=== PATIENT | female | born 1980 | race Caucasian/White ===

== ENCOUNTER 2021-01-11 10:44 | Outpatient (REF) | payer OTHER, SELFPAY ==
[2021-01-11 13:40] LABS: MANUAL DIFF FLAG NO
[2021-01-11 13:45] LABS: Basophils Absolute Auto 0.1 X10*3/uL (0.0-0.2); Basophils Percent Auto 1.1 % (0-2); Eosinophils Absolute Auto 0.1 X10*3/uL (0.0-0.4); Eosinophils Percent Auto 1.4 % (0-4); Hematocrit 41.9 % (37-47); Hemoglobin 13.9 g/dl (12.0-16.0); Imm Gran Abs Auto 0.02 X10*3/uL (0.00-0.03); Imm Gran Pct Auto 0.3 % (0.0-0.4); Lymphocytes Absolute Auto 2.1 X10*3/uL (1.2-4.9); Lymphocytes Percent Auto 29.8 % (20-40); Mean Corpuscular HGB Conc 33.2 g/dl (31.0-35.0); Mean Corpuscular Hemoglobin 30.5 pg (27.0-33.0); Mean Corpuscular Volume 92.1 fL (80-98); Monocytes Absolute Auto 0.7 X10*3/uL (0.1-1.2); Monocytes Percent Auto 9.5 % (2-11); Neutrophils Absolute Auto 4.1 X10*3/uL (2.0-8.3); Neutrophils Percent Auto 57.9 % (45-73); Platelet Count 363 X10*3/uL (160-400); Red Blood Count 4.55 X10*6/uL (4.20-5.50); Red Cell Distribution Width 12.6 % (11.0-16.0); White Blood Count 7.1 X10*3/uL (4.8-10.8)
[2021-01-11 14:16] LABS: Alanine Aminotransferase 16 U/L (0-31); Albumin Level 4.3 g/dL (3.5-5.0); Alkaline Phosphatase 64 U/L (39-117); Anion Gap 14 (12-20); Aspartate Amino Transferase 18 U/L (5-31); Bilirubin Total 0.9 mg/dL (0.0-1.0); Blood Urea Nitrogen 21 mg/dL (9-16); Calcium 9.2 mg/dL (8.4-10.2); Carbon Dioxide 26 mmol/L (22-29); Chloride 103 mmol/L (96-108); Estimated Glomerular Filt Rate > 60; Glucose Random 95 mg/dL (60-115); Potassium 4.2 mmol/L (3.3-5.1); Sodium 139 mmol/L (135-145); Total Protein 7.3 g/dL (6.5-8.0)
== END 2021-01-11 10:45 | disposition home or self-care (01) ==
LOC: HO.WFDLDS 10:44
PROVIDERS: Visit Provider Family Medicine
DX: R06.00 Dyspnea, unspecified (principal)
CPT/HCPCS: 36415; 80053; 85025

== ENCOUNTER → 2021-01-14 08:35 | Outpatient (REF) | payer OTHER, SELFPAY ==
--- NOTE | ~2021-01-14 | XR_ITS ---
EXAMINATION: XR CHEST CLINICAL INFORMATION: Dyspnea COMPARISON: Previous chest x-ray February 2020 TECHNIQUE: 2 views of the chest were obtained. FINDINGS: The cardiac and mediastinal contours are normal. The lungs are clear. There is no pleural effusion. There are mild degenerative changes of the spine. XR/XR chest 2V IMPRESSION: No evidence for acute disease in the chest.
--- NOTE | 2021-01-14 10:00 | CA_ITS ---
Acquisition Time: 2021-01-14 09:01:17 Total Exercise Time: 00:07:28 Test Indications: Screening for CAD Medications: Protocol: OWEN Max HR: 157 BPM 87% of Pred: 179 BPM Max BP: 178/080 mmHG Max Work Load: 9.2 METS Exercise stress test using Owen protocol. Total of 7 min 28 sec. METS 9.2 with TAPHR up to 87 %. Pt tolerated well, denies any anginal sx. EKG with no arrhythmias, no ischemic changes seen during exercise or in recovery period. Hypertensive response to exercise. Test reviewed with Dr. Jeffrey Referred By: Jon Messer Overread By: Steven Ash
== END ==
LOC: HO.CARD 08:35
PROVIDERS: PCP Family Medicine; Visit Provider Family Medicine
DX: R06.00 Dyspnea, unspecified (principal)
CPT/HCPCS: 71046; 93016; 93017; 93018

== ENCOUNTER 2022-06-19 10:41 | Outpatient (REF) | payer OTHER, SELFPAY ==
[2022-06-19 14:10] LABS: Alanine Aminotransferase 8 U/L (0-31); Albumin Level 4.4 g/dL (3.5-5.0); Alkaline Phosphatase 51 U/L (39-117); Anion Gap 13 (12-20); Aspartate Amino Transferase 13 U/L (5-31); Bilirubin Total 0.6 mg/dL (0.0-1.0); Blood Urea Nitrogen 13 mg/dL (9-16); Calcium 9.4 mg/dL (8.4-10.2); Carbon Dioxide 27 mmol/L (22-29); Chloride 101 mmol/L (96-108); Cholesterol 224 mg/dL; Estimated Glomerular Filt Rate > 60; Glucose Random 97 mg/dL (60-115); HDL Cholesterol 42 mg/dL; LDL Cholesterol Calculated 157 mg/dl; Potassium 3.6 mmol/L (3.3-5.1); Sodium 137 mmol/L (135-145); Total Protein 7.3 g/dL (6.5-8.0); Triglycerides 126 mg/dL
[2022-06-19 14:21] LABS: TSH reflex Free T4 1.44 uIU/mL (0.32-4.0)
[2022-06-21 08:26] LABS: LDL Cholesterol Direct 165 mg/dL (<100)
== END 2022-06-19 10:42 | disposition home or self-care (01) ==
LOC: HO.WFDLDS 10:41
PROVIDERS: Visit Provider Family Medicine
DX: Z00.00 Encounter for general adult medical examination without abnormal findings (principal); I10 Essential (primary) hypertension; Z13.220 Encounter for screening for lipoid disorders
CPT/HCPCS: 36415; 80053; 80061; 83721; 84443

== ENCOUNTER 2023-02-26 09:51 | Outpatient (REF) | payer OTHER, SELFPAY ==
[2023-02-26 11:38] LABS: MANUAL DIFF FLAG NO
[2023-02-26 11:44] LABS: Basophils Absolute Auto 0.1 X10*3/uL (0.0-0.2); Eosinophils Absolute Auto 0.1 X10*3/uL (0.0-0.4); Hematocrit 43.4 % (37.0-47.0); Hemoglobin 14.6 g/dl (12.0-16.0); Imm Gran Abs Auto 0.02 X10*3/uL (0.00-0.03); Imm Gran Pct Auto 0.3 % (0.0-0.4); Lymphocytes Absolute Auto 1.6 X10*3/uL (1.2-4.9); Lymphocytes Percent Auto 23.3 % (20-40); Mean Corpuscular HGB Conc 33.6 g/dl (31.0-35.0); Mean Corpuscular Hemoglobin 30.7 pg (27.0-33.0); Mean Corpuscular Volume 91.2 fL (80.0-98.0); Mean Platelet Volume 10.2 fL (9.4-12.3); Monocytes Absolute Auto 0.6 X10*3/uL (0.1-1.2); Monocytes Percent Auto 8.4 % (2-11); Neutrophils Absolute Auto 4.6 x10*3/uL (2.0-8.3); Platelet Count 342 X10*3/uL (160-400); Red Blood Count 4.76 X10*6/uL (4.20-5.50); Red Cell Distribution Width 12.2 % (11.0-16.0)
[2023-02-26 11:54] LABS: Appearance Urine Clear; Color Urine Yellow; Glucose Urine UA Negative (Negative); Leukocyte Esterase Urine Negative (Negative); Nitrite Urine Negative (Negative); PH 6.5 (5.0-9.0); Specific Gravity - Urine <= 1.005 (1.005-1.025); Urine Blood Negative (Negative); Urine Ketones Negative (Negative); Urine Protein Negative (Neg-Trace)
[2023-02-26 12:16] LABS: Alanine Aminotransferase 11 U/L (0-31); Albumin Level 4.4 g/dL (3.5-5.0); Alkaline Phosphatase 63 U/L (39-117); Anion Gap 13 (12-20); Aspartate Amino Transferase 15 U/L (5-31); Blood Urea Nitrogen 13 mg/dL (9-16); Calcium 9.5 mg/dL (8.4-10.2); Carbon Dioxide 26 mmol/L (22-29); Chloride 104 mmol/L (96-108); Cholesterol 234 mg/dL; Estimated Glomerular Filt Rate > 60; Glucose Random 99 mg/dL (60-115); HDL Cholesterol 45 mg/dL; LDL Cholesterol Calculated 167 mg/dl; Potassium 3.8 mmol/L (3.3-5.1); Sodium 139 mmol/L (135-145); Total Protein 7.2 g/dL (6.5-8.0); Triglycerides 110 mg/dL
[2023-02-26 12:20] LABS: TSH reflex Free T4 1.44 uIU/mL (0.32-4.0)
[2023-02-26 12:29] LABS: Creatinine Urine 41.79 mg/dL; Microalbumin Urine < 5.0 mg/L
[2023-02-28 05:34] LABS: LDL Cholesterol Direct 174 mg/dL (<100)
== END 2023-02-26 09:52 | disposition home or self-care (01) ==
LOC: HO.WFDLDS 09:51
PROVIDERS: Visit Provider Family Medicine
DX: Z00.00 Encounter for general adult medical examination without abnormal findings (principal); E78.5 Hyperlipidemia, unspecified; I10 Essential (primary) hypertension
CPT/HCPCS: 36415; 80053; 80061; 81003; 82043; 83721; 84443; 85025

== ENCOUNTER 2023-04-13 10:20 | Outpatient (REF) | payer OTHER, SELFPAY ==
--- NOTE | ~2023-04-13 | MM_ITS ---
EXAMINATION: MM SCREENING DIGITAL BREAST TOMOSYNTHESIS, BILATERAL CLINICAL INFORMATION: Screening. Asymptomatic. The lifetime risk of breast cancer based on the Tyrer-Cuzick Model is 6.2%. COMPARISON: Mammography: None TECHNIQUE: Digital breast tomosynthesis is performed in both the craniocaudal and mediolateral oblique views along with computer-aided detection (CAD). Synthesized 2D images are generated from the tomosynthesis. FINDINGS: There are scattered areas of fibroglandular density (ACR BI-RADS breast composition Category b). There are no significant masses, abnormal calcifications, or other abnormalities. MM/MM tomosynthesis screening BI IMPRESSION: No mammographic evidence of malignancy. ASSESSMENT: BI-RADS 1: Negative RECOMMENDATION: Routine annual mammography screening. This patient's information was entered into a reminder system with a target due date for their next mammogram.
== END 2023-04-13 10:21 | disposition home or self-care (01) ==
LOC: HO.MAMMO 10:20
PROVIDERS: PCP Family Medicine; Visit Provider Family Medicine
DX: Z12.31 Encounter for screening mammogram for malignant neoplasm of breast (principal)
CPT/HCPCS: 77063; 77067

== ENCOUNTER 2023-06-30 08:20 | Outpatient (AMB) | payer OTHER, SELFPAY ==
--- NOTE | 2023-06-30 08:24 | A.OFFPC_ITS ---
Vital Signs 06/30/23 08:29 Height 5 ft 3 in Weight 267 lb BMI 47.3 BP 126/84 Blood Pressure Location Lt brachial Position Sitting Respiration 14 Pulse 72 Pulse Source Pulse Oximeter Temp 97.0 F Temp Source Temporal Artery Scan Pulse Oximetry (%) 98 Oxygen Delivery Method Room Air Intake Visit Reasons: f/u ADHD and HLD Intake Note: Patient presents to the office today for a follow up regarding ADHD and HLD. Patient is current taking methylphenidate HCl ER 20 MG daily and is not doing well on the medication. Patient reports she has never increased her dose and wonders if this would help. Patient reports no side effects from the current medication. Patient had labs drawn on 02/26/2023 and did not have labs drawn again before today's appointment. Patient is currently taking Atorvastatin 20 MG daily. 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 by: Self / Same As Patient Allergies sulfamethoxazole [From BACTRIM] Allergy (Unknown, Verified 06/30/23 08:39) TOLD HER NOT TO TAKE BACTRIM trimethoprim [From BACTRIM] Allergy (Unknown, Verified 06/30/23 08:39) TOLD HER NOT TO TAKE BACTRIM Tobacco use date assessed: 06/30/23 Dental Screening Dental Screen Date: 06/30/23 Did you have a dental visit in the last 12 months?: No Did you have a dental problem in the last 6 months where you did not have access to dental care?: No Was dental information given to patient?: Yes HPI f/u ADHD and HLD HPI Details Patient is here to follow-up hypertension, hyperlipidemia and ADHD. Blood pressure appears controlled and she does not take medication for her blood pressure. Lipids had been elevated and we started atorvastatin 20 mg daily. She was to have her labs drawn prior to this appointment but has not done this yet. She is taking methylphenidate for ADHD and notes that it is not helping well enough. She denies increased anxiety/appetite issues/any adverse effects on methylphenidate. She reports she continues to watch her diet and has been exercising. [facility] Surgical History H/O wisdom tooth extraction History of section History of removal of cyst Family History Father Diabetes mellitus Mother HTN (hypertension) Stroke Brother Substance abuse Sister Substance abuse Son No problems noted. Daughter No problems noted. Social History Housing: House Patient Tobacco Use Status: Former Tobacco user e-Cigarette/Vaping Use: Currently Using (Daily use.) Second Hand Smoke Exposure: No service: No Current occupational status: employed Current occupational exposures/hazards: No Cognitive needs: No Hearing needs: No Vision needs: No Questionnaire Thrive Questionnaire Date Thrive assessed: 11/14/22 YING-7 AMB Questionnaire YING-7 Date YING - 7 assessed: 11/14/22 Source: Developed by Drs. Сергей Garcia, Anais Nicole, Hany Cross and colleagues, with an educational amira from [employer] Review of Systems Const Denies chills, Denies fatigue, Denies fever(s), Denies headache(s) and Denies weakness ENT Denies dizziness and Denies headache(s) Card Denies chest pain, Denies lightheadedness, Denies dyspnea and Denies other (Palpitations) Resp Denies cough, Denies dyspnea, Denies wheezing and Denies other ( shortness of breath) Musc Denies numbness and Denies tingling Neuro Denies dizziness, Denies headache(s), Denies numbness, Denies tingling, Denies paresthesias and Denies weakness Psych Denies anxiety and Denies depression Endo Denies fatigue Aller/Immun Denies wheezing Physical exam (Primary Care) Vital Signs: Last Vital Signs Temp 97.0 F 06/30/23 08:29 Pulse 72 06/30/23 08:29 Resp 14 06/30/23 08:29 BP 126/84 06/30/23 08:29 Pulse Ox 98 06/30/23 08:29 Oxygen Delivery Method Room Air 06/30/23 08:29 BMI result Body Mass Index 47.3 Tobacco/Smoking Status: Tobacco use Status Tobacco use date assessed 06/30/23 06/30/23 08:40 Patient Tobacco Use Status Former Tobacco user 06/30/23 08:25 e-Cigarette/Vaping Use Currently Using (Daily use.) 06/30/23 08:40 Thrive Assessment: Date of Thrive Assessment Date Thrive assessed 11/14/22 06/30/23 08:25 Const General: no acute distress and well developed Nutritional Appearance: obese morbidly obese Orientation/consciousness: patient oriented x3 HENMT Head: Yes normocephalic and Yes atraumatic Eyes General: appearance normal, both eyes and all related structures Pupils: Equal, round and reactive pupils present EOM: EOMs intact bilaterally Resp Effort & Inspection: normal respiratory effort Auscultation: clear to auscultation bilaterally Cardio Rate: regular rate Rhythm: regular rhythm Heart sounds: S1 normal heart sound present, S2 normal heart sound present, no gallops, no murmurs and no rubs Neuro General: patient oriented x3 and gait normal Cranial nerves: Yes Equal, round and reactive pupils present Psych Affect: normal affect Assessment and Plan Assessment & Plan (1) Hyperlipidemia: Code(s): E78.5 - Hyperlipidemia, unspecified Plan: Had started atorvastatin since her last visit. Has not gotten her labs drawn but will do so today. We can follow-up in a couple of weeks by telemedicine to review (2) ADHD: Code(s): F90.9 - Attention-deficit hyperactivity disorder, unspecified type Plan: Patient uses her medications appropriately. She has started new work which is more complicated and she is noticing that she is having more difficulty on ER 20 mg daily. No adverse effects from this medication Will increase to methylphenidate ER 30 mg daily She would like to have follow ups every 4 month and we discussed that this is the maximum length of time between visits that I can approve. Patient understands. Check labs (3) Essential hypertension: Code(s): I10 - Essential (primary) hypertension Plan: Blood pressures are controlled with diet. Encouraged exercise and salt/sodium avoidance Continue to monitor with blood pressure cuff at home (4) Morbid obesity with BMI of 45.0-49.9, adult: Code(s): E66.01 - Morbid (severe) obesity due to excess calories; Z68.42 - Body mass index [BMI] 45.0-49.9, adult Plan: Patient has had difficulty with weight loss. Had a long discussion regarding diet and exercise We can follow-up on this at a subsequent visit. Orders: Orders Drug Screen Urine Today F90.9 - Attention-deficit hyperactivity disorder, unspecified type UA and rflx microscopic Today F90.9 - Attention-deficit hyperactivity disorder, unspecified type, Z00.00 - Encounter for general adult medical examination without abnormal findings Comprehensive [place]. Panel Fast Today F90.9 - Attention-deficit hyperactivity disorder, unspecified type, Z00.00 - Encounter for general adult medical examination without abnormal findings Lipid Panel Today E78.5 - Hyperlipidemia, unspecified, Z00.00 - Encounter for general adult medical examination without abnormal findings Medications: New methylphenidate HCl ER Partial Fill upon patient request. 30 mg PO QAM 30 days 30 caps 0RF Discontinued methylphenidate HCl ER [facility] verified. Partial refill upon request. Discontinued Reason: Doctor's Order 20 mg PO DAILY 28 days 28 tabs 0RF Z00.00 - Encounter for general adult medical examination without abnormal findings Coding Level of Care Code Est Pt Level 4 (53227) Diagnoses Hyperlipidemia E78.5 ADHD F90.9 Essential hypertension I10 Morbid obesity with BMI of 45.0-49.9, adult E66.01; Z68.42
[2023-06-30 08:29] VITALS: BP 126/84; PULSE 72; RESP 14; TEMP 36.1; O2SAT 98; BMI 47.3
== END 2023-06-30 09:12 | disposition home or self-care (01) ==
PROVIDERS: Visit Provider Family Medicine
DX: E78.5 Hyperlipidemia, unspecified (principal); F90.9 Attention-deficit hyperactivity disorder, unspecified type; I10 Essential (primary) hypertension; E66.01 Morbid (severe) obesity due to excess calories; Z68.42 Body mass index [BMI] 45.0-49.9, adult
CPT/HCPCS: 99214

== ENCOUNTER 2023-06-30 09:04 | Outpatient (REF) | payer OTHER, SELFPAY ==
[2023-06-30 12:42] LABS: Alanine Aminotransferase 15 U/L (0-31); Alkaline Phosphatase 58 U/L (39-117); Anion Gap 11 (12-20); Aspartate Amino Transferase 15 U/L (5-31); Bilirubin Total 0.6 mg/dL (0.0-1.0); Blood Urea Nitrogen 14 mg/dL (9-16); Calcium 9.1 mg/dL (8.4-10.2); Carbon Dioxide 25 mmol/L (22-29); Chloride 107 mmol/L (96-108); Cholesterol 158 mg/dL; Estimated Glomerular Filt Rate > 60; Glucose Fasting 94 mg/dL (60-99); HDL Cholesterol 47 mg/dL; LDL Cholesterol Calculated 95 mg/dl; Potassium 3.9 mmol/L (3.3-5.1); Sodium 139 mmol/L (135-145); Total Protein 6.9 g/dL (6.5-8.0); Triglycerides 81 mg/dL
== END 2023-06-30 09:05 | disposition home or self-care (01) ==
LOC: HO.WFDLDS 09:04
PROVIDERS: Visit Provider Family Medicine
DX: Z00.00 Encounter for general adult medical examination without abnormal findings (principal); E78.5 Hyperlipidemia, unspecified
CPT/HCPCS: 36415; 80053; 80061

== ENCOUNTER 2023-12-10 09:42 | Outpatient (AMB) | payer OTHER, SELFPAY ==
--- NOTE | 2023-12-10 09:53 | A.OFFPC_ITS ---
Vital Signs 12/10/23 09:55 Height 5 ft 3 in Weight 278 lb BMI 49.2 BP 122/74 Blood Pressure Location Lt brachial Position Sitting Pulse 77 Pulse Source Pulse Oximeter Pulse Oximetry (%) 97 Oxygen Delivery Method Room Air Intake Visit Reasons: f/u ADHD Intake Note: Patient is here to follow up on her ADHD medication. She needs refill on both her meds. Allergies sulfamethoxazole [From BACTRIM] Allergy (Unknown, Verified 12/10/23 09:57) TOLD HER NOT TO TAKE BACTRIM trimethoprim [From BACTRIM] Allergy (Unknown, Verified 12/10/23 09:57) TOLD HER NOT TO TAKE BACTRIM Tobacco use date assessed: 12/10/23 Dental Screening Dental Screen Date: 12/10/23 Did you have a dental visit in the last 12 months?: Yes Did you have a dental problem in the last 6 months where you did not have access to dental care?: No Was dental information given to patient?: Patient declined HPI f/u ADHD HPI Details 43 y/o female presents to f/u ADHD. Also reviewing lipids. Labs were drawn 06/30/23. Triglycerides 81. TC 158. LDL 95. HDL 47. She is on artovastatin 20mg. She is on methylphenidate for her ADHD. She denies any issues with her medications. She denies any issues with appetite, sleep, increased anxiety. [facility] Surgical History History of removal of cyst H/O wisdom tooth extraction History of section Family History Father Diabetes mellitus Mother HTN (hypertension) Stroke Brother Substance abuse Sister Substance abuse Son No problems noted. Daughter No problems noted. Social History Housing: House Patient Tobacco Use Status: Former Tobacco user e-Cigarette/Vaping Use: Currently Using (Daily use.) Second Hand Smoke Exposure: No service: No Current occupational status: employed Current occupational exposures/hazards: No Cognitive needs: No Hearing needs: No Vision needs: No Questionnaire Thrive Questionnaire Date Thrive assessed: 11/14/22 YING-7 AMB Questionnaire YING-7 Date YING - 7 assessed: 11/14/22 Source: Developed by Drs. Сергей Garcia, Anais Nicole, Hany Cross and colleagues, with an educational amira from [employer]. Physical exam (Primary Care) Vital Signs: Last Vital Signs Pulse 77 12/10/23 09:55 BP 122/74 12/10/23 09:55 Pulse Ox 97 12/10/23 09:55 Oxygen Delivery Method Room Air 12/10/23 09:55 BMI result Body Mass Index 49.2 Tobacco/Smoking Status: Tobacco use Status Tobacco use date assessed 12/10/23 12/10/23 09:59 Patient Tobacco Use Status Former Tobacco user 12/10/23 09:59 e-Cigarette/Vaping Use Currently Using (Daily use.) 12/10/23 09:59 Thrive Assessment: Date of Thrive Assessment Date Thrive assessed 11/14/22 12/10/23 09:59 Const Nutritional Appearance: obese morbidly obese Assessment and Plan Assessment & Plan (1) ADHD: Code(s): F90.9 - Attention-deficit hyperactivity disorder, unspecified type Plan: Patient?is?using?medication?with?fairly?good?affect. She?denies?any?adverse?effects?such?as?appetite?suppression,?anxiety?or?difficul ty?sleeping. At?last?visit,?had?ordered?urine?drug?screen.??I?do?not?see?that?I?made?an y?mention?of?discussing?this?with?her.??Urine?drug?screen?was?apparently?not?acq uired. We?discussed?today?that?I?am?ordering?a?urine?drug?screen.??She?will?leave?a?uri ne?sample?today. Patient?was?fru strated?with?the?time?it?takes?to?be?seen?and?that?she?has?to?be?seen?every?4?mo nths. She?referred?to?this?as??a?hostage?situation?. Explained?that?regular?visits?are?necessary. She?has?signed?a?con tract?agreeing?to?be?seen?at?regular?intervals. Orders: Orders Drug Screen Urine Today F90.9 - Attention-deficit hyperactivity disorder, unspecified type Amphetamine by GC/MS Today F90.9 - Attention-deficit hyperactivity disorder, unspecified type Coding Level of Care Code Est Pt Level 3 (66324) Diagnoses ADHD F90.9
[2023-12-10 09:55] VITALS: BP 122/74; PULSE 77; O2SAT 97; BMI 49.2
== END 2023-12-10 11:27 | disposition home or self-care (01) ==
PROVIDERS: PCP Family Medicine; Visit Provider Family Medicine
DX: F90.9 Attention-deficit hyperactivity disorder, unspecified type (principal)
CPT/HCPCS: 99213

== ENCOUNTER 2023-12-10 10:35 | Outpatient (REF) | payer OTHER, SELFPAY ==
[2023-12-10 14:41] LABS: Amphetamine Screen Urine Not Detected (Not Detect); Barbiturates, Urine Not Detected (Not Detect); Benzodiazepines Screen Urine Not Detected (Not Detect); Cannabinoid Screen Urine Not Detected (Not Detect); Cocaine Screen Urine Not Detected (Not Detect); Fentanyl, urine Not Detected (Not Detect); Opiate Screen Urine Not Detected (Not Detect); Phencyclidine Screen Urine Not Detected (Not Detect)
== END 2023-12-10 10:36 | disposition home or self-care (01) ==
LOC: HO.LAB 10:35
PROVIDERS: Visit Provider Family Medicine
DX: F90.9 Attention-deficit hyperactivity disorder, unspecified type (principal)
CPT/HCPCS: 80307

== ENCOUNTER 2024-04-29 15:30 | Outpatient (REF) | payer OTHER, SELFPAY ==
--- NOTE | ~2024-04-29 | MM_ITS ---
EXAMINATION: MM SCREENING DIGITAL BREAST TOMOSYNTHESIS, BILATERAL CLINICAL INFORMATION: Screening. Asymptomatic. COMPARISON: Mammography: This study is compared with prior exams dating back to 2022. TECHNIQUE: Digital breast tomosynthesis is performed in both the craniocaudal and mediolateral oblique views along with computer-aided detection (CAD). Synthesized 2D images are generated from the tomosynthesis. FINDINGS: The breasts are almost entirely fatty (ACR BI-RADS breast composition Category a). There are no significant masses, abnormal calcifications, or other abnormalities. MM/MM tomosynthesis screening BI IMPRESSION: No mammographic evidence of malignancy. ASSESSMENT: BI-RADS BI-RADS 1 - Negative RECOMMENDATION: Routine annual mammography screening. 1 year F/U This examination should not preclude the clinical evaluation of a suspicious palpable abnormality. This patient's information was entered into a reminder system with a target due date for their next mammogram.
== END 2024-04-29 15:31 | disposition home or self-care (01) ==
LOC: HO.MAMMO 15:30
PROVIDERS: PCP Family Medicine; Visit Provider Family Medicine
DX: Z12.31 Encounter for screening mammogram for malignant neoplasm of breast (principal)
CPT/HCPCS: 77063; 77067

== ENCOUNTER → 2024-04-29 15:30 | Outpatient (BNV) | payer OTHER, SELFPAY | PROVIDERS: PCP Family Medicine; Visit Provider Radiology Diagnostic Radiology | DX: Z12.31 Encounter for screening mammogram for malignant neoplasm of breast (principal) | CPT/HCPCS: 77063; 77067 ==

== ENCOUNTER → 2024-05-19 14:04 | Outpatient (BNVA) | payer OTHER, SELFPAY | PROVIDERS: PCP Family Medicine; Visit Provider Physician Assistant Surgical ==

== ENCOUNTER 2024-06-03 12:57 | Outpatient (AMB) | payer OTHER, SELFPAY ==
--- NOTE | 2024-06-03 13:03 | A.OFFPC_ITS ---
Vital Signs 06/03/24 13:09 Height 5 ft 3 in Weight 284 lb 4 oz BMI 50.3 BP 138/88 Blood Pressure Location Rt brachial Position Sitting Respiration 16 Pulse 67 Pulse Source Pulse Oximeter Pulse Oximetry (%) 97 Oxygen Delivery Method Room Air Intake Visit Reasons: f/u ADHD Intake Note: Follow up ADHD Allergies sulfamethoxazole [From BACTRIM] Allergy (Unknown, Verified 06/03/24 13:06) TOLD HER NOT TO TAKE BACTRIM trimethoprim [From BACTRIM] Allergy (Unknown, Verified 06/03/24 13:06) TOLD HER NOT TO TAKE BACTRIM Tobacco use date assessed: 12/10/23 Dental Screening Dental Screen Date: 06/03/24 Did you have a dental visit in the last 12 months?: No Did you have a dental problem in the last 6 months where you did not have access to dental care?: No Was dental information given to patient?: Patient declined (Patient will call insurance company) HPI f/u ADHD HPI Details 44 y/o female presents to f/u ADHD. She is on methylphenidate HCl 20mg. Pt notes 20mg has been helping with his focus. She notes she has been only using it at work. She denies any issues with increased anxiety/difficulty sleeping. 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 [facility] Surgical History (Updated 05/19/24 @ 15:17 by July Rivera [facility]) Hx of colonoscopy History of anal fistulotomy History of removal of cyst H/O wisdom tooth extraction History of section Family History Father Diabetes mellitus Mother HTN (hypertension) Stroke Brother Substance abuse Sister Substance abuse Son No problems noted. Daughter No problems noted. Social History (Updated 06/03/24 @ 13:09 by Mitzy Meléndez [facility]) Housing: House Patient Tobacco Use Status: Former Tobacco user Cigarette Packs Per Day: 0.5 Years Smoked: 20 Packs Per Year: 10 e-Cigarette/Vaping Use: Currently Using (Daily use.) Frequency of e-Cigarette/Vaping Use: A pod of Jewul every two days Second Hand Smoke Exposure: No Use of substances other than those prescribed or required for medical reasons: No service: No Current occupational status: employed Current occupational exposures/hazards: No Cognitive needs: No Hearing needs: No Vision needs: No Questionnaire PHQ-9 Over the last 2 weeks, how often have you been bothered by any of the following problems? 1. Little interest or pleasure in doing things: not at all 2. Feeling down, depressed, or hopeless: not at all 3. Trouble falling or staying asleep, or sleeping too much: not at all 4. Feeling tired or having little energy: not at all 5. Poor appetite or overeating: not at all 6. Feeling bad about yourself - or that you are a failure or have let yourself or your family down: several days 7. Trouble concentrating on things, such as reading the newspaper or watching television: more than half the days 8. Moving or speaking so slowly that other people could have noticed. Or the opposite - being so fidgety or restless that you have been moving around a lot more than usual: not at all 9. Thoughts that you would be better off or of hurting yourself in some way: not at all Total score: 3 Depression Screening Interpretation: Positive Depression Screening Done: Yes 17091 - PHQ-9 Billing: Yes Source: Developed by Drs. Сергей Garcia, Anais Nicole, Hany Cross and colleagues, with an educational amira from [employer]. Thrive Questionnaire Date Thrive assessed: 11/14/22 I am a: Patient What is your living situation today?: I have a steady place to live Within the past 12 months, did the food you bought not last and you didn't have the money to get more?: Never true Within the past 12 months, did you worry whether your food would run out before you got money to buy more?: Never true Do you have trouble paying for medicines?: No Do you have trouble getting transportation to medical appointments?: No Do you have trouble paying your heating and electricity bill?: No Do you have trouble taking care of your child, family member or friend?: No Do you have trouble with day-to-day activities such as bathing, preparing meals, shopping, managing finances, etc.?: No Are you currently unemployed and looking for a job?: No Are you interested in more education?: No Please select the resources that you would like help with: None Currently or been in a relationship where the following occur: No concerns reported THRIVE Score: 0 AUDIT C Alcohol Use Questionnaire (AUDIT-C) 1. How often do you have a drink containing alcohol?: Never 3. How often do you have six or more drinks on one occasion?: Never Total Score: 0 YING-7 AMB Questionnaire YING-7 Date YING - 7 assessed: 06/03/24 Feeling nervous, anxious, or on edge: 0 = Not at all Not being able to stop or control worryin = Not at all Worrying too much about different things: 0 = Not at all Trouble relaxin = Not at all Being so restless that it is hard to sit still: 0 = Not at all Becoming easily annoyed or irritable: 1 = Several days Feeling afraid as if something awful might happen: 0 = Not at all Total YING-7 score (0-4 normal; 5-9 mild; 10-14 moderate; 15-21 severe): 1 Source: Developed by Drs. Сергей Garcia, Anais Nicole, Hany Cross and colleagues, with an educational amira from [employer]. Review of Systems Const Denies chills, Denies fatigue, Denies fever(s), Denies headache(s) and Denies weakness ENT Denies dizziness and Denies headache(s) Card Denies dyspnea Resp Denies cough, Denies dyspnea, Denies wheezing and Denies other (shortness of breath) Musc Denies numbness and Denies tingling Neuro Denies dizziness, Denies headache(s), Denies numbness, Denies tingling and Denies weakness Psych Denies anxiety and Denies depression Endo Denies fatigue Aller/Immun Denies wheezing Physical exam (Primary Care) Vital Signs: Last Vital Signs Pulse 67 06/03/24 13:09 Resp 16 06/03/24 13:09 BP 138/88 06/03/24 13:09 Pulse Ox 97 06/03/24 13:09 Oxygen Delivery Method Room Air 06/03/24 13:09 BMI result Body Mass Index 50.3 Tobacco/Smoking Status: Tobacco use Status Tobacco use date assessed 12/10/23 06/03/24 13:03 Patient Tobacco Use Status Former Tobacco user 06/03/24 13:09 e-Cigarette/Vaping Use Currently Using (Daily use.) 06/03/24 13:09 PHQ-9: PHQ-9 Score PHQ-9: Total score 3 06/03/24 13:31 Depression Screening Interpretation: Positive Thrive Assessment: Date of Thrive Assessment Date Thrive assessed 11/14/22 06/03/24 13:03 Currently or been in a relationship where the following occur: No concerns reported Const General: well developed; No acute distress Nutritional Appearance: well nourished and obese morbidly obese Orientation/consciousness: patient oriented x3 HENMT Head: Yes normocephalic and Yes atraumatic Eyes General: appearance normal, both eyes and all related structures Pupils: Equal, round and reactive pupils present EOM: EOMs intact bilaterally Resp Effort & Inspection: normal respiratory effort Neuro General: patient oriented x3 and gait normal Cranial nerves: Yes Equal, round and reactive pupils present Psych Affect: normal affect Assessment and Plan Assessment & Plan (1) ADHD: Code(s): F90.9 - Attention-deficit hyperactivity disorder, unspecified type Plan: Patient?says?that?methylphenidate?20?mg?daily?is?working?for?her. No?increase?in?anxiety?or?problems?with?appetite.??No?prob lems?with?difficulty?sleeping. Continue?current?medication Checking?random?urine?drug?screen. (2) Morbid obesity: Code(s): E66.01 - Morbid (severe) obesity due to excess calories Plan: Patient?is?scheduled?to?start?Bariatric?program. Needs?to?quit?smoking/vaping?before?she?can?begin?program.??See?below (3) Essential hypertension: Code(s): I10 - Essential (primary) hypertension Plan: Blood?pressure?is?in?prehypertensive?range. She?is?scheduled?to?start?Bariatric?program?and?will?likely?have?her?blood?press ures?improve No?medication?changes?were?made?today Watch?salt/sodium?in?diet Work?on?weight?loss (4) Smoker: Code(s): F17.200 - Nicotine dependence, unspecified, uncomplicated Plan: Patient?is?vaping?nicotine?device. Wants?to?quit?and?does?not?feel?she?has?a?strong?dependency?on?nicotine?but?has? significant?habit. We?discussed?Chantix?and?bupropion. Will?trial?bupropion Advised?she?change?hand?to?mouth?habits?to?another?habits?such?as?a?fidget?toy.? ?From?there?she?can?try?discontinuing?that?as?well. Orders: Orders Drug Screen Urine Today F90.9 - Attention-deficit hyperactivity disorder, unspecified type Coding Level of Care Code Est Pt Level 4 (22769) Diagnoses ADHD F90.9 Morbid obesity E66.01 Essential hypertension I10 Smoker F17.200
[2024-06-03 13:09] VITALS: BP 138/88; PULSE 67; RESP 16; O2SAT 97; BMI 50.3
== END 2024-06-03 14:13 | disposition home or self-care (01) ==
PROVIDERS: PCP Family Medicine; Visit Provider Family Medicine
DX: I10 Essential (primary) hypertension (principal); E66.01 Morbid (severe) obesity due to excess calories; Z68.43 Body mass index [BMI] 50.0-59.9, adult; F90.9 Attention-deficit hyperactivity disorder, unspecified type; F17.290 Nicotine dependence, other tobacco product, uncomplicated
CPT/HCPCS: 99214

== ENCOUNTER 2024-06-03 18:06 | Outpatient (REF) | payer OTHER, SELFPAY ==
[2024-06-03 18:32] LABS: Amphetamine Screen Urine Not Detected (Not Detect); Barbiturates, Urine Not Detected (Not Detect); Benzodiazepines Screen Urine Not Detected (Not Detect); Buprenorphine Scr Not Detected (Not Detect); Cannabinoid Screen Urine Not Detected (Not Detect); Cocaine Screen Urine Not Detected (Not Detect); Fentanyl, urine Not Detected (Not Detect); Methadone Screen, Urine Not Detected (Not Detect); Opiate Screen Urine Not Detected (Not Detect); Oxycodone Screen Urine Not Detected (Not Detect); Phencyclidine Screen Urine Not Detected (Not Detect)
== END 2024-06-03 18:07 | disposition home or self-care (01) ==
LOC: HO.LNP 18:06
PROVIDERS: Visit Provider Family Medicine
DX: F90.9 Attention-deficit hyperactivity disorder, unspecified type (principal)
CPT/HCPCS: 80307

== ENCOUNTER 2024-06-22 11:07 | Outpatient (AMB) | payer OTHER, SELFPAY ==
--- NOTE | 2024-06-22 11:07 | MHC.OFFVISWM ---
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 She heard about our program from her insurance company. Her goal is to lose weight and achieve a healthy lifestyle as well as to improve, if not resolve, obesity related medical conditions, including htn, nld. She reports first being concerned about her weight over the last 20 years, highest weight to date was 285. Current weight is 279.8 pounds with a BMI of 49.6. She has tried multiple methods of weight loss including fad diets without permanent results. She lives with her and son. 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 She wakes at:?8 am, and goes to bed at?11pm. Dinner is at 7pm. Breakfast: cottage cheese or niuean yogurt, 2 eggs, banana, toast and PB AM snack: skip Lunch: cheese, chicken, salad PM snack: skip Dinner: protein, veg, starch After dinner: chocolate covered raisins or peanuts, niuean yogurt, Other snacks: rare ice cream and chip Liquids: 64-96 oz water, no soda or juice Alcohol/marijuana/tobacco intake: no etoh, cannabis. Vape tobacco all day long Exercise: none. could join PF. GERD score: 6 ELLYN score: 6 ESS score: 4 QOL score: 114 PFSH Surgical History Hx of colonoscopy History of anal fistulotomy History of removal of cyst H/O wisdom tooth extraction History of section Family History Father Diabetes mellitus Mother HTN (hypertension) Stroke Brother Substance abuse Sister Substance abuse Son No problems noted. Daughter No problems noted. Social History Housing: House Patient Tobacco Use Status: Former Tobacco user Cigarette Packs Per Day: 0.5 Years Smoked: 20 e-Cigarette/Vaping Use: Currently Using (Daily use.) Second Hand Smoke Exposure: No service: No Current occupational status: employed Current occupational exposures/hazards: No Cognitive needs: No Hearing needs: No Vision needs: No Physical Exam Vital Signs: Last Vital Signs Temp 97.4 F 06/22/24 11:26 Pulse 86 06/22/24 11:26 BP 170/86 H 06/22/24 11:26 Pulse Ox 96 06/22/24 11:26 Oxygen Delivery Method Room Air 06/22/24 11:26 BMI result Body Mass Index 49.6 Const General: cooperative, healthy appearing and no acute distress Orientation/consciousness: patient oriented x3 HEENT Head: Yes normal to inspection Ears: hearing grossly normal bilaterally General nose exam: Normal external nose present Face and sinus: Yes normal facial exam Eyes General: appearance normal, both eyes and all related structures Resp Effort & Inspection: normal respiratory effort Auscultation: clear to auscultation bilaterally Cardio Rate: regular rate Rhythm: regular rhythm Heart sounds: S1 normal heart sound present and S2 normal heart sound present GI Inspection: Yes normal to inspection, No distended and Yes obesity Palpation (GI): Soft to palpation, nontender and no guarding Auscultation: normal bowel sounds Skin General skin exam: no rashes or lesions noted Neuro General: patient oriented x3 Extrem General: No edema Psych Appearance: grossly normal Mental Status: mental status grossly normal Speech and movement: Normal speech and movement present Affect: normal affect Attitude: cooperative Assessment & Plan Assessment & Plan (1) Morbid obesity: Code(s): E66.01 - Morbid (severe) obesity due to excess calories Category: Medical Plan: This is a?44 yo female who will start our SWL program to prepare for bariatric surgery.? Blood work, CXR, ECG, Abd US and UGI have been ordered. She is being scheduled for initial consultations. She will start SWL classes and watch the first three videos before her next appointment. 1. You have been given a paper with a link to our software rafael ([employer]) to generate an individualized nutritional and exercise plan specific for you. Please send me a screenshot of the plans you will generate Meal to include lean meat (beef, fish, pork, turkey, chicken), or niuean yogurt, or egg whites, or beans with a salad with olive oil and fruits (berries, pears, apples, kiwi). Avoid salt, breads, potatoes, rice, pasta, desserts. 2. If you choose shakes, each shake would be drunk slowly, like coffee over a period of 2 hours. 3. If you choose bars, cut each bar in 4 pieces and eat each piece in 30 min to make each bar last 2 hours. 4. I emphasized the importance of measuring accurately the food portion and measure it when serving the food on a plate 5. The meal portions include a specific number of forks of meat (protein) and salad. You always eat the meat portion but you can replace up to half of salad/vegetables portion with rice, potatoes or pasta, or a fruit ?if you like. The less you do it the better weight loss will be. 6. One full-size fork is what can be scooped on the fork without falling aside and not what can be bit with the fork. Use regular forks like those you find in a typical restaurant. 7.? Please send me weight measurements from your body composition scale as soon as possible and then once a week. Always include your diet and exercise plan. The best time to weigh yourself is first thing in the morning after going to the bathroom. 8. The best choice for exercise would be joining [employer] as you mentioned and trying out the different cardio equipment pieces including stationary bike, treadmill, elliptical to determine what may be best for you to purchase to have at home. Alternatively start walking outside daily, tracking calories with a goal of 300 calories per day, daily. You can download the rafael Sure Chill which can track your time, distance and calories while walking outside. You press start in the rafael when you start and then stop when you are finished. 9.?Goal is to lose at least 1.5-2 lbs per week, and about 10% before surgery, which is about 28 pounds 10. Please follow the diet plan exactly without any change. If you don't like something about the plan or you feel hungry you need to communicate with me so I can help you revise the plan. My cell phone number to communicate with me by text is [phone] Patient is morbidly obese and is not considered stable at this time.?I spent a total of 70 minutes reviewing/updating records, examining the patient and counseling the patient on weight management as detailed above. Orders: Orders Insulin Today E66.01 - Morbid (severe) obesity due to excess calories, E78.5 - Hyperlipidemia, unspecified, I10 - Essential (primary) hypertension Complete Blood Count Auto Diff Today E66.01 - Morbid (severe) obesity due to excess calories, E78.5 - Hyperlipidemia, unspecified, I10 - Essential (primary) hypertension Lipid Panel Today E66.01 - Morbid (severe) obesity due to excess calories, E78.5 - Hyperlipidemia, unspecified, I10 - Essential (primary) hypertension Comprehensive Met. Panel Today E66.01 - Morbid (severe) obesity due to excess calories, E78.5 - Hyperlipidemia, unspecified, I10 - Essential (primary) hypertension C Reactive Protein Today E66.01 - Morbid (severe) obesity due to excess calories, E78.5 - Hyperlipidemia, unspecified, I10 - Essential (primary) hypertension Vitamin B1 Today E66.01 - Morbid (severe) obesity due to excess calories, E78.5 - Hyperlipidemia, unspecified, I10 - Essential (primary) hypertension US abdomen comp w elastography Today E66.01 - Morbid (severe) obesity due to excess calories, E78.5 - Hyperlipidemia, unspecified, I10 - Essential (primary) hypertension ECG 12 lead EKG Today E66.01 - Morbid (severe) obesity due to excess calories, E78.5 - Hyperlipidemia, unspecified, I10 - Essential (primary) hypertension FL upper GI w air Today E66.01 - Morbid (severe) obesity due to excess calories, E78.5 - Hyperlipidemia, unspecified, I10 - Essential (primary) hypertension Hemoglobin A1c Today E66.01 - Morbid (severe) obesity due to excess calories, E78.5 - Hyperlipidemia, unspecified, I10 - Essential (primary) hypertension IRON PROFILE Today E66.01 - Morbid (severe) obesity due to excess calories, E78.5 - Hyperlipidemia, unspecified, I10 - Essential (primary) hypertension Vitamin B12 and Folate Today E66.01 - Morbid (severe) obesity due to excess calories, E78.5 - Hyperlipidemia, unspecified, I10 - Essential (primary) hypertension Zinc Today E66.01 - Morbid (severe) obesity due to excess calories, E78.5 - Hyperlipidemia, unspecified, I10 - Essential (primary) hypertension Vitamin A Today E66.01 - Morbid (severe) obesity due to excess calories, E78.5 - Hyperlipidemia, unspecified, I10 - Essential (primary) hypertension TSH reflex Free T4 Today E66.01 - Morbid (severe) obesity due to excess calories, E78.5 - Hyperlipidemia, unspecified, I10 - Essential (primary) hypertension Ferritin Today E66.01 - Morbid (severe) obesity due to excess calories, E78.5 - Hyperlipidemia, unspecified, I10 - Essential (primary) hypertension Vitamin D 25-OH Total Today E66.01 - Morbid (severe) obesity due to excess calories, E78.5 - Hyperlipidemia, unspecified, I10 - Essential (primary) hypertension XR chest 2V Today E66.01 - Morbid (severe) obesity due to excess calories, E78.5 - Hyperlipidemia, unspecified, I10 - Essential (primary) hypertension Referrals Behavioral Health Referral E66.01 - Morbid (severe) obesity due to excess calories, E78.5 - Hyperlipidemia, unspecified, I10 - Essential (primary) hypertension
[2024-06-22 11:26] VITALS: BP 170/86; PULSE 86; TEMP 36.3; O2SAT 96; BMI 49.6
[2024-06-22 11:59] VITALS: BP 144/88
== END 2024-06-22 12:09 | disposition home or self-care (01) ==
PROVIDERS: PCP Family Medicine; Visit Provider Physician Assistant Surgical
DX: E66.01 Morbid (severe) obesity due to excess calories (principal); Z68.42 Body mass index [BMI] 45.0-49.9, adult
CPT/HCPCS: 99205

== ENCOUNTER 2024-06-22 11:07 | Outpatient (REF) | payer OTHER, SELFPAY ==
--- NOTE | ~2024-06-22 | XR_ITS ---
EXAMINATION: XR CHEST CLINICAL INFORMATION: Morbid severe obesity due to excess calories. COMPARISON: 01/14/2021. TECHNIQUE: 2 views of the chest were obtained. FINDINGS: There is no gross pneumothorax. Heart size is normal. Mild dextroscoliosis of the thoracic spine with degenerative changes. No pleural effusion. No focal consolidation. XR/XR chest 2V IMPRESSION: No evidence of pneumonia.
--- NOTE | 2024-06-22 12:38 | ECG_ITS ---
Test Reason : OBESITY Blood Pressure : / mmHG Vent. Rate : 074 BPM Atrial Rate : 074 BPM P-R Int : 154 ms QRS Dur : 084 ms QT Int : 382 ms P-R-T Axes : 028 -05 001 degrees QTc Int : 424 ms Normal sinus rhythm Normal ECG No previous ECGs available Referred By: Sixto Maki Electronically Signed By:Fredy Easton
[2024-06-22 12:51] LABS: MANUAL DIFF FLAG NO
[2024-06-22 13:30] LABS: Basophils Absolute Auto 0.1 X10*3/uL (0.0-0.2); Basophils Percent Auto 0.8 % (0-2); Eosinophils Absolute Auto 0.1 X10*3/uL (0.0-0.4); Eosinophils Percent Auto 1.5 % (0-4); Hematocrit 43.6 % (37.0-47.0); Hemoglobin 14.4 g/dl (12.0-16.0); Imm Gran Abs Auto 0.04 X10*3/uL (0.00-0.03); Imm Gran Pct Auto 0.5 % (0.0-0.4); Lymphocytes Absolute Auto 1.8 X10*3/uL (1.2-4.9); Lymphocytes Percent Auto 22.1 % (20-40); Mean Corpuscular Hemoglobin 30.4 pg (27.0-33.0); Mean Corpuscular Volume 92.2 fL (80.0-98.0); Mean Platelet Volume 9.8 fL (9.4-12.3); Monocytes Absolute Auto 0.6 X10*3/uL (0.1-1.2); Monocytes Percent Auto 8.1 % (2-11); Neutrophils Absolute Auto 5.3 x10*3/uL (2.0-8.3); Platelet Count 367 X10*3/uL (160-400); Red Blood Count 4.73 X10*6/uL (4.20-5.50); Red Cell Distribution Width 12.3 % (11.0-16.0)
[2024-06-22 14:05] LABS: Estimated Average Glucose 105 mg/dL; Hemoglobin A1c % 5.3 % (<6.0)
[2024-06-22 14:07] LABS: Alanine Aminotransferase 12 U/L (0-31); Albumin Level 4.4 g/dL (3.5-5.0); Alkaline Phosphatase 82 U/L (39-117); Anion Gap 13 (12-20); Aspartate Amino Transferase 15 U/L (5-31); Bilirubin Total 0.8 mg/dL (0.0-1.0); Blood Urea Nitrogen 10 mg/dL (9-16); C Reactive Protein 0.26 mg/dL (< or = 0.50); Calcium 9.5 mg/dL (8.4-10.2); Carbon Dioxide 25 mmol/L (22-29); Chloride 105 mmol/L (96-108); Cholesterol 158 mg/dL (<200); Estimated Glomerular Filt Rate > 60; Glucose Random 97 mg/dL (60-115); HDL Cholesterol 52 mg/dL (>40); Iron 114 mcg/dL (30-160); LDL Cholesterol Calculated 88 mg/dL (<100); Percent Iron Saturation 36 % (15-50); Potassium 3.8 mmol/L (3.3-5.1); Sodium 139 mmol/L (135-145); Total Iron Binding Capacity 315 mcg/dL (228-428); Total Protein 7.5 g/dL (6.5-8.0); Triglycerides 90 mg/dL (<150); Unsaturated Iron Binding 201 ug/dL
[2024-06-22 14:24] LABS: Ferritin 25 ng/mL (10-250); Insulin 13 uU/mL (2-29); TSH reflex Free T4 1.18 uIU/mL (0.32-4.0); Vitamin D 25-OH Total 30.8 ng/mL (>30)
[2024-06-22 14:30] LABS: Folate 9.5 ng/mL (> or = 4.0); Vitamin B12 275 pg/mL (200-900)
[2024-06-26 11:38] LABS: Vitamin B1 <6 nmol/L (8-30)
[2024-06-26 23:28] LABS: Zinc 77 mcg/dL (60-130)
[2024-06-27 18:17] LABS: Vitamin A 45 mcg/dL (38-98)
== END 2024-06-22 11:08 | disposition home or self-care (01) ==
LOC: HO.LAB 11:07
PROVIDERS: PCP Family Medicine; Visit Provider Physician Assistant Surgical
DX: E66.01 Morbid (severe) obesity due to excess calories (principal); E78.5 Hyperlipidemia, unspecified; I10 Essential (primary) hypertension; Z79.899 Other long term (current) drug therapy
CPT/HCPCS: 36415; 71046; 80053; 80061; 82306; 82607; 82728; 82746; 83036; 83525; 83540; 84425; 84443; 84590; 84630; 85025; 86140; 93005

== ENCOUNTER → 2024-06-22 12:38 | Outpatient (BNV) | payer OTHER, SELFPAY | PROVIDERS: PCP Family Medicine; Visit Provider Internal Medicine Cardiovascular Disease | DX: E78.5 Hyperlipidemia, unspecified (principal); I10 Essential (primary) hypertension; E66.01 Morbid (severe) obesity due to excess calories | CPT/HCPCS: 93010 ==

== ENCOUNTER 2024-07-07 10:38 | Outpatient (REF) | payer OTHER, SELFPAY ==
--- NOTE | ~2024-07-07 | US_ITS ---
EXAMINATION: US COMPLETE ABDOMEN WITH LIVER ELASTOGRAPHY CLINICAL INFORMATION: Morbid obesity. COMPARISON: None available. TECHNIQUE: Real-time imaging of the abdominal viscera. Noninvasive ultrasound liver fibrosis assessment is performed using Dianne ElastPQ point quantification shear wave elastography (pSWE) with a C5-2 MHz transducer. Multiple elastography samples are obtained. FINDINGS: PANCREAS: The visualized pancreatic head and body are normal in appearance. The remainder of the pancreas is obscured from visualization by the overlying bowel gas. ABDOMINAL AORTA: The proximal, middle, and distal aortic segments are normal in caliber. INFERIOR VENA CAVA: Visualized portions are normal. LIVER: The liver is normal in size but with increased echogenicity. No focal lesion or intrahepatic biliary duct dilatation. The right lobe measures 14.3 cm in length. The left lobe measures 9.4 cm in length. Portal flow is hepatopedal. Shear wave liver elastography median stiffness is 1.5 m/s (reference: normal median stiffness is 1.3 m/s or less). IQR/median stiffness to assess sampling precision is 0.11 (reference: good quality data set is IQR/median stiffness of 0.15 or less). GALLBLADDER: Normal. The gallbladder is physiologically distended without evidence of stones, sludge, polyps, wall thickening or pericholecystic fluid. COMMON BILE DUCT: Normal in caliber measuring 0.3 cm in diameter. RIGHT KIDNEY: Normal. No hydronephrosis. No renal calculi or focal parenchymal lesions. The kidney measures 11.0 cm in maximum dimension. LEFT KIDNEY: Normal. No hydronephrosis. No renal calculi or focal parenchymal lesions. The kidney measures 11.0 cm in maximum dimension. SPLEEN: Normal. The spleen measures 11.0 cm in maximum dimension. FREE FLUID: None. US/US abdomen comp w elastography IMPRESSION: 1. Echogenic liver consistent with hepatic steatosis. 2. Liver Elastography: In the absence of other known clinical signs, measurements rule out compensated advanced chronic liver disease. If there are known clinical signs, further testing may be needed for confirmation. REFERENCE: Society of Radiologists in Ultrasound Liver Stiffness Thresholds (2020): LIVER STIFFNESS THRESHOLDS: *Liver Stiffness equal or less than 1.3 m/s: High probability of being normal. *Liver Stiffness less than 1.7 m/s: In the absence of other known clinical signs, rules out compensated advanced chronic liver disease. *Liver Stiffness 1.7-2.1 m/s: Suggestive of compensated advanced chronic liver disease but need further test for confirmation. *Liver Stiffness over 2.1 m/s: Rules in compensated advanced chronic liver disease. *Liver Stiffness over 2.4 m/s: Suggestive of clinically significant portal hypertension. QUALITY OF DATA SET: *IQR/Median value equal or less than 0.15 implies a quality data set. *IQR/Median value over 0.15 implies a poor quality data set. SIGNIFICANT CHANGE FROM PRIOR EXAM: Significant change if liver stiffness measurement is 10% or greater from prior exam. OTHER CONSIDERATIONS: The stage of liver fibrosis may be overestimated in the setting of acute hepatitis, liver inflammation, elevated liver function tests, hepatic vascular congestion, obstructive cholestasis, non-fasting state, and infiltrative diseases such as amyloidosis and lymphoma. In some patients with NAFLD, the liver stiffness thresholds for compensated advanced chronic liver disease may be lower. In causes other than viral hepatitis and NAFLD, liver stiffness thresholds are not well established. Electronically signed by: Yannick Meyer MD 07/28/2024 09:56 PM EDT
== END 2024-07-07 10:39 | disposition home or self-care (01) ==
LOC: HO.US 10:38
PROVIDERS: PCP Family Medicine; Visit Provider Physician Assistant Surgical
DX: E66.01 Morbid (severe) obesity due to excess calories (principal); E78.5 Hyperlipidemia, unspecified; I10 Essential (primary) hypertension
CPT/HCPCS: 76700; 76981

== ENCOUNTER 2024-07-21 13:40 | Outpatient (AMB) | payer OTHER, SELFPAY ==
[2024-07-21 08:32] VITALS: BMI 47.5
--- NOTE | 2024-07-21 08:32 | MHC.OFFVISWM ---
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 She was initially seen in the Surgical weight loss program on 06/22/2024 with a weight of 279.8 lb with a BMI of 49.6. Weight today is 268 lb with a BMI of 47.5. This corresponds to an 11.8 lb weight loss or 4.2% total body weight loss. Using the right bmi rafael, doing well, communicating weekly. Is very happy with her progress and has no complaints at this time. meal plan: 3 x ascent (25 gm/scoop) 1 scoop, 9-11, 12-2, 6-8 meal 3-5, 9 forks of protein and 9 of veg 48-64 oz water exercise plan: walking 2 mi outside daily/ outdoor bike, 400-500 dipak daily PFSH Surgical History Hx of colonoscopy History of anal fistulotomy History of removal of cyst H/O wisdom tooth extraction History of section Family History Father Diabetes mellitus Mother HTN (hypertension) Stroke Brother Substance abuse Sister Substance abuse Son No problems noted. Daughter No problems noted. Social History Housing: House Patient Tobacco Use Status: Former Tobacco user Cigarette Packs Per Day: 0.5 Years Smoked: 20 e-Cigarette/Vaping Use: Currently Using (Daily use.) Second Hand Smoke Exposure: No service: No Current occupational status: employed Current occupational exposures/hazards: No Cognitive needs: No Hearing needs: No Vision needs: No Telehealth Telehealth Telehealth Platform: Telephone Location of provider rendering services: practice address Patient Identification confirmed using: Name, : Yes Telehealth method: voice only Patient verbally consented to treatment: Yes Patient verbally consented to billing insurance company: Yes Patient informed of any privacy concerns related to visit: Yes Minutes spent on Phone/Video with Pt.: 15 Assessment & Plan Assessment & Plan (1) Morbid obesity: Code(s): E66.01 - Morbid (severe) obesity due to excess calories Category: Medical Plan: Patient is making good progress. She has lost 11.8 lb or 4.2% total body weight loss in 1 month. We will have her transition over to Dr. Marcos for continued preoperative planning. She will communicate with me until her appointment with Dr. Marcos. I encouraged her to re weigh herself on her scale at home as she is away this week when she gets home and then to recalibrate the meal plan. She states that she will do so. Additionally, I encouraged her to transition from using a food scale to using a forks as a unit of measurement. She will do this. She will be an excellent surgical candidate.
== END 2024-07-21 13:46 | disposition home or self-care (01) ==
LOC: HO.HBS 13:40
PROVIDERS: PCP Family Medicine; Visit Provider Physician Assistant Surgical
DX: E66.01 Morbid (severe) obesity due to excess calories (principal)
CPT/HCPCS: 99213

== ENCOUNTER → 2024-07-21 13:40 | Outpatient (BNVA) | payer OTHER, SELFPAY | PROVIDERS: PCP Family Medicine; Visit Provider Physician Assistant Surgical | DX: E66.01 Morbid (severe) obesity due to excess calories (principal) ==

== ENCOUNTER → 2024-08-10 10:16 | Outpatient (BNVA) | payer OTHER, SELFPAY | PROVIDERS: PCP Family Medicine; Visit Provider Counselor Mental Health ==

== ENCOUNTER → 2024-08-10 10:16 | Outpatient (AMB) | payer OTHER, SELFPAY ==
--- NOTE | 2024-08-10 10:16 | A.OFFWM_ITS ---
Intake Intake Visit Reasons: VIDEO Intake Allergies sulfamethoxazole [From BACTRIM] Allergy (Unknown, Verified 06/22/24 11:28) TOLD HER NOT TO TAKE BACTRIM trimethoprim [From BACTRIM] Allergy (Unknown, Verified 06/22/24 11:28) TOLD HER NOT TO TAKE BACTRIM COUNT INCLUDES THE [facility] Surgical History Hx of colonoscopy History of anal fistulotomy History of removal of cyst H/O wisdom tooth extraction History of section Family History Father Diabetes mellitus Mother HTN (hypertension) Stroke Brother Substance abuse Sister Substance abuse Son No problems noted. Daughter No problems noted. Social History Housing: House Patient Tobacco Use Status: Former Tobacco user Cigarette Packs Per Day: 0.5 Years Smoked: 20 e-Cigarette/Vaping Use: Currently Using (Daily use.) Second Hand Smoke Exposure: No service: No Current occupational status: employed Current occupational exposures/hazards: No Cognitive needs: No Hearing needs: No Vision needs: No Behavioral Health Assessment Weight Management Therapy Therapy Notes Details PT is a years old F/M, who presents for a visit to complete assessment as part of surgical weight loss program. She has been referred to this program by her insurance company, she is pursuing bariatric surgery as a method to loss weight and become a healthier person. She hopes to be active, be and stay healthy. Today we started assessment but we will need to meet again to finish. PHQ-9 needs to be administered again and BES reviewed. So, far patient appears to be stable, functioning not impaired and a great candidate to move forward with SWL- plan. Presenting Concerns Referral Source P-Provider, PT sees MARY and started services on 06/22/2024 Reason for referral Completion of behavioral health assessment as part of process for weight-loss surgery. Precipitating Event Obesity. When she had Covid it took her longer to recover, and after going trough that she decided to make a big life change. Living Situation Current Living Situation Own At risk of losing current housing? No Satisfied with current living situation? Yes Comments PT lives with her and 18 y/o son. And the family dog. Food/Weight/Diet Expectations of change Initial Goal is to lose at least 1.5-2 Lbs per week, and about 10% before surgery, which is about 28 pounds. PT started on 07/23 at 279Lbs, then on 07/21 was 268Lbs and reports her weight today is 262Lbs. Patient wants to lose weight and become a healthier and active person. PT is implementing the following: Current meal plan: 2 shakes, 1 meal (3-5pm), 1 shake or a bar at night. Exercise plan: 2 mile walk 5-6 days at week in the morning and ride her bike 1 day at week 5-10 miles. History/Relationship with food -PT reports she has had times on her lif e that she has binge-eating, but she also has times she doesn't eat all day an then at night she would overeat due to increased appetite. -In early adulthood she has a period of food insecurity that now has lead to over buy foods. -Before starting the program she did not have a good knowledge on nutrition, so she would eat things she was not aware they were not as healthy. Having kids, when they have a bad day then they'll go to grab ice-cream. She and her loves cooking, but when they cook they're is no any portion control or proper amount of certain ingredients like butter/salt/oils. Example of meals before starting the program: Breakfast: Lunch: Dinner: Snacks: Drinks/Liquids: History/Relationship with weight She was overweight in childhood but She was very active and practiced sport up until she was 19 y/o. She got at 20m and after having her child she was never able to be under 200Lbs. And after that it has continue up. She has some aunts on her mom's side who are morbidly obese, on her dad's side he has 2 sisters over 400Lbs. In the last 10 years, the patient's Lowest weight was and highest History/Relationship with dieting CrossFit, lost 25Lbs but was hard on her body. Has also tried weight watchers, eating healthy, gym membership. she usually commits to diet/exercise but after not getting the results she expect then she stops and ends up gaining back what she lost. Social History Family history and relationship for second time in 2020. She has 2 children, her daughter is 22 and son is 18 y/o. Parents alive, she has 2 siblings. She doesn't have a relationship with mother or siblings. She has a difficult upbringing. Brothers has substance use issues. Relationship with father is ok. Parental/Familial answering service operator obligations 18 y/o Son. Developmental history and status Struggled in school but was an average student. Was diagnosed with ADHD on first year of college. Currently takes medication for ADHD. Social support , kids, best friend who lives 20 min away and her friend's mother had bariatric surgery 2 years ago, another friend had surgery several years ago and her boss also had surgery last year. She has 2 friends who walks with her 2 x at week. Judaism/Spirituality Faithful but not restorationism. Cultural/Ethnic information [place]ymraes background. . Mental Health and Addiction Treatment Psychiatric history PT disclosed a history of trauma and mentioned she attends counseling. Pt also takes prescribed meds for ADHD. Questionnaires PHQ-9 Over the last 2 weeks, how often have you been bothered by any of the following problems? 1. Little interest or pleasure in doing things: not at all 2. Feeling down, depressed, or hopeless: not at all 3. Trouble falling or staying asleep, or sleeping too much: not at all 4. Feeling tired or having little energy: not at all 5. Poor appetite or overeating: not at all 6. Feeling bad about yourself - or that you are a failure or have let yourself or your family down: not at all 7. Trouble concentrating on things, such as reading the newspaper or watching television: not at all 8. Moving or speaking so slowly that other people could have noticed. Or the opposite - being so fidgety or restless that you have been moving around a lot more than usual: not at all 9. Thoughts that you would be better off or of hurting yourself in some way: not at all Total score: 0 Depression Screening Interpretation: Negative (Scores from new PT pack, completed on 05/19. Will be administered again at next visit.) Depression Screening Done: Yes Source: Developed by Drs. Сергей Garcia, Anais Nicole, Hany Cross and colleagues, with an educational amira from [employer]. Binge Eating Scale Group 1 A. I don't feel self-conscious about my wt. or body size when I'm with others. B. I feel concerned about how I look to others, but it normally does not make me fell disappointed with myself C. I do get self-conscious about my appearance and wt. which makes me feel disappointed in myself. D. I feel very self-conscious about my wt. and frequently I feel intense shame and disgust for myself. I try to avoid social contacts because of my self- consciousness. Response Group 1: D Group 2 A. I don't have any difficulty eating slowly in the proper manner. B. Although I seem to gobble down foods, I don't end up feeling stuffed because of eating to much. C. At times, I tend to eat quickly and then, I feel uncomfortably full afterwards. D. I have the habit of bolting down my food, without really chewing it. When this happens I usually feel uncomfortably stuffed because I've eaten to much. Response Group 2: A Group 3 A. I feel capable to control my eating urges when I want to. B. I feel like I have failed to control my eating more than the average person. C. I feel utterly helpless when it comes to feeling in control of my eating urges. D. Because I feel so helpless about controlling my eating I have become very desperate about trying to get control. Response Group 3: A Group 4 A. I don't have the habit of eating when I'm bored. B. I sometimes eat when I'm bored, but often I'm able to get busy and get my mind off food. C. I have a regular habit of eating when I'm bored, but occasionally, I can use some other activity to get my mind off eating. D. I have a strong habit of eating when I'm bored. Nothing seems to help me breath the habit. Response Group 4: C Group 5 A. I'm usually physically hungry when I eat something. B. Occasionally, I eat something on impulse even though I really am not hungry. C. I have the regular habit of eating foods, that I might not really enjoy, to satisfy a hungry feeling even though physically, I don't need the food. D. Although I'm not physically hungry, I get a hungry feeling in my mouth that only seems to be satisfied when I eat a food, like sandwich, that fills my mouth. Sometimes, when I eat the food to satisfy my mouth hunger, I then spit the food out so I won't gain weight. Response Group 5: A Group 6 A. I don't feel any guilt or self-hate after I overeat. B. After I overeat, occasionally I feel guilt or self-hate. C. Almost all the time I experience strong guilt or self-hate after I overeat. Response Group 6: B Group 7 A. I don't lose total control of my eating when dieting even after periods when I overeat. B. Sometimes when I eat a forbidden food on a diet, I feel like I blew it and eat even more. C. Frequently, I have the habit of saying to myself, I've blown it now, why not go all the way, when I overeat on a diet. When that happens I eat more. D. I have a regular habit of starting a strict diets for myself but I break the diets by going on an eating binge. My life seems to be either a feast or famine. Response Group 7: C Group 8 A. I rarely eat so much food that I feel uncomfortably stuffed afterwards. B. Usually about once a month, I each such a quantity of food, I end up feeling very stuffed. C. I have regular periods during the month when I eat large amounts of food, either at mealtime or at snacks. D. I eat so much food that I regularly feel quite uncomfortable after eating and sometimes a bit nauseous. Response Group 8: A Group 9 A. My level of calorie intake does not go up very high or go down very low on a regular basis. B. Sometimes after I overeat, I will try to reduce my caloric intake to almost nothing to compensate for the excess calories I've eaten. C. I have a regular habit of overeating during the night. It seems that my routine is not to be hungry in the morning but overeat in the evening. D. In my adult years, I have had week-long periods where I practically starve myself. This follows periods when I overeat. It seems I live a life of either feast or famine. Response Group 9: C Group 10 A. I usually am able to stop eating when I want to. I know when enough is enough. B. Every so often, I experience a compulsion to eat which I can't seem to control. C. Frequently, I experience strong urges to eat which I seem unable to control, but at other times I can control my eating urges. D. I feel incapable of controlling urges to eat. I have a fear of not being able to stop eating voluntarily. Response Group 10: B Group 11 A. I don't have any problem stopping eating when I feel full. B. I usually can stop eating when I feel full but occasionally overeat leaving me feeling uncomfortably stuffed. C. I have a problem stopping eating once I start and usually I feel uncomfortably stuffed after I eat a meal. D. Because I have a problem not being able to stop eating when I want, I sometimes have to induce vomiting to relieve my stuffed feeling. Response Group 11: A Group 12 A. I seem to eat just as much when I'm with others, Family social gatherings as when I'm by myself. B. Sometimes, when I'm with other persons, I don't eat as much as I want to eat because I'm self-conscious about my eating. C. Frequently, I eat only a small amount of food when others are present, because I'm very embarrassed about my eating. D. I feel so ashamed about overeating that I pick times to overeat when I know no one will see me. I feel like a closet eater. Response Group 12: C Group 13 A. I eat three meals a day with only an occasional between meal snack. B. I eat 3 meals a day, but I also normally snack between meals. C. When I am snacking heavily, I get in the habit of skipping regular meals. D. There are regular periods when I seem to be continually eating, with no planned meals. Response Group 13: D Group 14 A. I don't think much about trying to control unwanted eating urges. B. At least some of the time, I feel my thoughts are pre-occupied with trying to control my eating urges. C. I feel that frequently I spend much time thinking about how much I ate or about trying not to eat anymore. D. It seems to me that most of my waking hours are pre-occupied by thoughts about eating or not eating. I feel like I'm constantly struggling not to eat. Response Group 14: A Group 15 A. I don't think about food a great deal. B. I have strong craving for food but they last only for brief periods of time. C. I have days when I can't seem to think about anything else but food. D. Most of my days seem to be pre-occupied with thoughts about food. I feel like I live to eat. Response Group 15: A Group 16 A. I usually know whether or not I'm physically hungry. I take the right portion of food to satisfy me. B. Occasionally, I feel uncertain about knowing whether or not I'm physically hungry. A these times it's hard to know how much food I should take to satisfy me. C. Even though I might know how many calories I should eat, I don't have any idea what is a normal amount of food for me. 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 Will return on 08/22/24 to finish assessment. Telehealth Telehealth Telehealth Platform: [facility] Location of provider rendering services: other Location of patient: address on file Patient Identification confirmed using: Name, : Yes Telehealth method: voice only Patient verbally consented to treatment: Yes Patient verbally consented to billing insurance company: Yes Patient informed of any privacy concerns related to visit: No Minutes spent on Phone/Video with Pt.: 55 Coding Level of Care Code New Pt Tele Psy Diag Eval ([id number]) Patient Type New Diagnoses Trauma and stressor-related disorder F43.9 Time Spent (min) 55
== END ==
PROVIDERS: PCP Family Medicine; Visit Provider Counselor Mental Health
DX: F43.9 Reaction to severe stress, unspecified (principal)
CPT/HCPCS: 90791

== ENCOUNTER 2024-08-15 08:07 | Outpatient (AMB) | payer OTHER, SELFPAY ==
--- NOTE | 2024-08-15 11:14 | A.OFFVIS_ITS ---
VS Expanded 08/15/24 11:38 Height 5 ft 3 in Weight 261 lb 2 oz BMI 46.3 Body Fat % 62.2 Body Fat Mass 162.4 Fat Free Mass 98.8 Visceral Fat Rating 27 Body Water % 25.9 Body Water Mass 67.6 Basal Metabolic Rate/Score 1,349 Intake Visit Reasons: TV Consult / Transfer Sixto Allergies sulfamethoxazole [From BACTRIM] Allergy (Unknown, Verified 08/15/24 11:14) TOLD HER NOT TO TAKE BACTRIM trimethoprim [From BACTRIM] Allergy (Unknown, Verified 08/15/24 11:14) TOLD HER NOT TO TAKE BACTRIM Medication List - Last Reconciled 08/15/24 by Ashutosh Marcos MD atorvastatin 20 mg PO BEDTIME 30 days cholecalciferol (vitamin D3) 125 mcg PO DAILY 90 days cyanocobalamin (vitamin B-12) 500 mcg PO DAILY 90 days melatonin 2.5 mg PO methylphenidate HCl 20 mg PO QAM 30 days multivitamin 1 tab PO DAILY thiamine HCl (vitamin B1) 100 mg PO DAILY 90 days HPI HPI TV Consult / Transfer Sixto: Details: Start time: 11.40am, End time: 11.45am ?I spent 40 minutes speaking with the patient on the phone plus an additional 5 minutes reviewing and updating records for a total of 45 minutes HPI Comments Details: Overall weight loss: 21lbs, or 7.44% TBWL She is using the [place] rafael with excellent results so far: Is doing 3 Astent protein shakes and one meal (9 forkfuls of protein and 9 forkfuls of salad or vegetables) Exercise: walking x6/wk for 330 [facility] Medical History (Updated 08/15/24 @ 11:19 by Ashutosh Marcos MD) Insomnia Surgical History Hx of colonoscopy History of anal fistulotomy History of removal of cyst H/O wisdom tooth extraction History of section Family History Father Diabetes mellitus Mother HTN (hypertension) Stroke Brother Substance abuse Sister Substance abuse Son No problems noted. Daughter No problems noted. Social History Housing: House Patient Tobacco Use Status: Former Tobacco user Cigarette Packs Per Day: 0.5 Years Smoked: 20 e-Cigarette/Vaping Use: Currently Using (Daily use.) Second Hand Smoke Exposure: No service: No Current occupational status: employed Current occupational exposures/hazards: No Cognitive needs: No Hearing needs: No Vision needs: No Telehealth Telehealth Telehealth Platform: Telephone Location of provider rendering services: practice address Location of patient: address on file Patient Identification confirmed using: Name, : Yes Telehealth method: voice only Patient verbally consented to treatment: Yes Patient verbally consented to billing insurance company: Yes Patient informed of any privacy concerns related to visit: Yes Minutes spent on Phone/Video with Pt.: 45 Assessment & Plan Assessment & Plan (1) Morbid obesity: Code(s): E66.01 - Morbid (severe) obesity due to excess calories Category: Medical Plan: 1. Plan for lap sleeve gastrectomy including upper GI endoscopy. All tests has been completed and reviewed and the patient is cleared for the surgery. ?If diaphragmatic or ventral hernias are present at time of surgery, these will be repaired laparoscopically as well. Risks and complications were discussed in detail including possible conversion to an open procedure, anastomotic leak, bleeding requiring transfusion, small bowel obstruction, , DVT and pulmonary embolism, cardiac, or pulmonary complications, as chcf complications such as anastomotic ulcer, insufficient weight loss and vitamin deficiencies. I emphasized the importance of close follow-up, adherence to instructions and good communication. So far she has proven to be an excellent communicator and very compliant with all our directions accomplishing a great weight loss. I believe that she is an excellent candidate and she is ready. 2. The patient participated in a structured preoperative lifestyle intervention program supervised by a physician the 2 months preceding the surgical procedure. The lifestyle intervention included a structured nutritional plan with a specific daily protein intake goal, an exercise plan with a 2000 calorie burn weekly goal, weekly behavior modification guidance and completion of eight 1- hour online nutritional classes and passing successfully the corresponding quizzes. Adherence to preoperative care plan was demonstrated by completing an extensive preoperative work-up. Program participation was demonstrated by completing 4 visits with our medical team and by sharing weekly weight measurements weekly for 2 consecutive months via an approved body composition scale. Compliance to the lifestyle intervention was demonstrated by achieving a 21lbs weight-loss or 7.4% total body weight loss (TBWL). No medications were used to achieve this weight loss. In our published experience an over 7% preoperative TBWL, achieved by meeting the diet and exercise goals of our program improves surgical outcomes, reduces the potential for surgical compl ications, and predicts a statistically significant higher weight loss up to 6 years postoperatively. 3. Continue same nutritional plan of 3 Astent protein shakes and one meal (9 forkfuls of protein and 9 forkfuls of salad or vegetables) 4. Exercise: continue walking x6/wk for 330 calories 5. The best choice would be to purchase a stationary bike, elliptical or treadmill at home that can track calories. Use the [place] rafael to give you an exercise plan. 6. Continue to send me weight measurements weekly on
[2024-08-15 11:38] VITALS: BMI 46.3
== END 2024-08-15 11:45 | disposition home or self-care (01) ==
LOC: HO.HBS 08:07
PROVIDERS: PCP Family Medicine; Visit Provider Surgery
DX: E66.01 Morbid (severe) obesity due to excess calories (principal); Z68.42 Body mass index [BMI] 45.0-49.9, adult
CPT/HCPCS: 99215; G2252

== ENCOUNTER → 2024-08-15 08:07 | Outpatient (BNVA) | payer OTHER, SELFPAY | PROVIDERS: PCP Family Medicine; Visit Provider Surgery ==

== ENCOUNTER 2024-08-16 08:32 | Day surgery (SDC) | payer OTHER, SELFPAY ==
--- NOTE | 2024-08-12 13:16 | HO.ANESPROP2 ---
Documented by User: Sona Edmonds NP 08/12/24 13:17 HPI - Anesthesia Eval Consult details Narrative: 44yo F for Upper Endoscopy PMFSH Active Problems Active Problems: All Active Problems Smoker (Acute) Morbid obesity (Acute) Morbid obesity with BMI of 45.0-49.9, adult (Acute) Hyperlipidemia (Acute) ADHD (Acute) Essential hypertension (Acute) Breast cancer screening by mammogram (Acute) Screening for cervical cancer (Acute) Adult general medical exam (Acute) History of COVID-19 (Acute) Dyspnea on exertion (Acute) Past Medical History Medical History Insomnia Family History Family History Father Diabetes mellitus Mother HTN (hypertension) Stroke Brother Substance abuse Sister Substance abuse Son No problems noted. Daughter No problems noted. Surgical History Surgical History Hx of colonoscopy History of anal fistulotomy History of removal of cyst H/O wisdom tooth extraction History of section Social History Social History Housing: House Patient Tobacco Use Status: Former Tobacco user Cigarette Packs Per Day: 0.5 Years Smoked: 20 e-Cigarette/Vaping Use: Currently Using (Daily use.) Second Hand Smoke Exposure: No Have you been hit, kicked, punched, or otherwise hurt by someone within the past year? If so, by whom?: No Are you DNR?: No Advance Directives: No Advance Directives Information Provided: Yes Recently lost weight without trying: Yes Nutrition Risks: No Nutritional Risk service: No Current occupational status: employed Current occupational exposures/hazards: No Cognitive needs: No Hearing needs: No Vision needs: No Meds Allergies Allergy/AdvReac Type Severity Reaction Status Date / Time sulfamethoxazole Allergy Unknown TOLD Verified 08/15/24 11:14 [From BACTRIM] HER NOT TO TAKE BACTRIM trimethoprim [From BACTRIM] Allergy Unknown TOLD Verified 08/15/24 11:14 HER NOT TO TAKE BACTRIM Home Medications ?Medication ?Instructions ?Recorded ?Confirmed ?Last Taken ?Type melatonin 5 mg capsule 2.5 mg PO 05/19/24 08/15/24 Unknown History multivitamin 1 tab PO DAILY 06/03/24 08/15/24 Unknown History Assessment and Plan Assessment Anesthesia Assessment: Chart Reviewed Documented by User: Lakeisha Rios MD 08/16/24 12:13 PMFSH Past Medical History Medical History Insomnia Family History Family History Father Diabetes mellitus Mother HTN (hypertension) Stroke Brother Substance abuse Sister Substance abuse Son No problems noted. Daughter No problems noted. Family history of problems with anesthesia: No Surgical History Surgical History Hx of colonoscopy History of anal fistulotomy History of removal of cyst H/O wisdom tooth extraction History of section History of Problems with Anesthesia: No Social History Social History Housing: House Patient Tobacco Use Status: Former Tobacco user Cigarette Packs Per Day: 0.5 Years Smoked: 20 e-Cigarette/Vaping Use: Currently Using (Daily use.) Second Hand Smoke Exposure: No Have you been hit, kicked, punched, or otherwise hurt by someone within the past year? If so, by whom?: No Are you DNR?: No Advance Directives: No Advance Directives Information Provided: Yes Recently lost weight without trying: Yes Nutrition Risks: No Nutritional Risk service: No Current occupational status: employed Current occupational exposures/hazards: No Cognitive needs: No Hearing needs: No Vision needs: No Meds Allergies Allergy/AdvReac Type Severity Reaction Status Date / Time sulfamethoxazole Allergy Unknown TOLD Verified 08/15/24 11:14 [From BACTRIM] HER NOT TO TAKE BACTRIM trimethoprim [From BACTRIM] Allergy Unknown TOLD Verified 08/15/24 11:14 HER NOT TO TAKE BACTRIM Home Medications ?Medication ?Instructions ?Recorded ?Confirmed ?Last Taken ?Type melatonin 5 mg capsule 2.5 mg PO 05/19/24 08/15/24 Unknown History multivitamin 1 tab PO DAILY 06/03/24 08/15/24 Unknown History Exam Airway Mallampati Class: III TM Dist: <=3cm Neck ROM: Full Heart: rrr Lungs: cta Assessment and Plan Assessment Anesthesia Assessment: Anesthesia Plan Discussed Final Anesthetic Review Family History of Problems with Anesthesia: No History of Problems with Anesthesia: No NPO: Yes ASA Class: III Final Preanesthetic Review: No Changes in Pt Med Stat, Meds/Allgs Chart Reviewed, Consent Obtained/Reviewed and Anes Risks/Benef Reviewed Patient Risk: Intermediate Procedure Risk: Low Anesthetic Plan Anesthetic Plan: GA Disposition: Standard PACU
[2024-08-16 09:15] VITALS: BP 131/57; PULSE 51; RESP 18; TEMP 36.9; O2SAT 99; BMI 45.9
[2024-08-16 09:19] LABS: UPreg QC Valid YES; Urine Pregnancy NEGATIVE (NEGATIVE)
[2024-08-16] MEDS: Lactated Ringers 1,000 ML 100 ML IVCONT (09:24)
--- NOTE | 2024-08-16 11:22 | MHC.SHP ---
Pre-Procedural Eval Section A - 24 Hr Update-Section A only Date of Service: 08/16/24 The patient is an INPATIENT: No The patient has been examined within 24 hours of the surgical procedure. The History & Physical has been completed within 30 days and I have reviewed it.: Yes Section B - Complete if H&P > 30 days Chief Complaint: Morbid (severe) obesity due to excess calories Details of Present Illness: GERD Relevant Family History (Specify if Yes): No Relevant Social History: None Present Medications: None Medical History: No relevant PMH History of Previous Operations: No relevant previous surgery Allergies: Allergies Allergy/AdvReac Type Severity Reaction Status Date / Time sulfamethoxazole Allergy Unknown TOLD Verified 08/15/24 11:14 [From BACTRIM] HER NOT TO TAKE BACTRIM trimethoprim [From BACTRIM] Allergy Unknown MD TOLD Verified 08/15/24 11:14 HER NOT TO TAKE BACTRIM Review of Systems Sugical H&P ROS: Negative: Constitution, Cardiovascular, Respiratory, Neurological, Psychiatric, Hem-Onc, Allergic/Immunologic, Gastrointestinal, Genitourinary, Musculoskeletal, Integumentary, Endocrine and Eyes/Ears/Nose/Throat Exam Surgical H&P Exam: Normal: HEENT, Normal: Heart, Normal: Lungs, Normal: Extremities, Normal: Abdomen, Normal: Skin and Normal: Neurological Plan Diagnosis/Plan: Unchanged (EGD to assess etiology of GERD. Risks of bleeding and perforation were discussed with the patient and she is in agreement with the plan.) I have reviewed the history and physical and performed a pertinent physical examination on my patient. No changes have occurred unless specified. Time Spent With Patient Time: Total time managing care of this patient today ____ minutes.
--- NOTE | 2024-08-16 11:24 | PM.OP ---
Brief Operative Note Date of Service: 08/16/24 Pre-op diagnosis: GERD Post-op diagnosis: same Procedure: PROCEDURE DATE: 08/16/2024 PREOPERATIVE DIAGNOSIS: GERD POSTOPERATIVE DIAGNOSIS: ?Same as above. 1) small hiatal hernia PROCEDURE: [id number] with biopsies Surgeon: Jin Marcos M.D.. Ph.D. Community Support Associate: None ? Anesthesia: IV sedation Estimated blood loss: ?Minimal FINDINGS AND PROCEDURE: ? OPERATIVE INDICATIONS: ?The patient is a 44 year old female known to me who is interested in bariatric surgery. The patient has GERD. Based on this information I recommended an upper endoscopy to evaluate the patient's symptoms. Risks and complications of the surgery were discussed with the patient in advance particularly the possibility of perforation or bleeding that may require surgical intervention. The patient understood the risks and was in agreement with the plan. ? PROCEDURE: After informed consent was obtained by the patient, the patient was ?transferred to the Operating Room and was placed in the supine position.? After successful induction of IV sedation, a mouth block was inserted and the patient was placed in the left lateral decubitus position. An upper endoscopy was performed next, the oropharynx and esophagus appeared within the normal limits. There was a 2cm hiatal hernia. The z-line was smooth. Two biopsies were obtained from the distal esophagus 2-3 cm proximal to the GE junction and two additional biopsies from the GE junction. The stomach was entered and it appeared to be of normal size. There was no gastritis. There was no stricture or ulcer. A biopsy was obtained from the gastric fundus and the antrum. No significant bleeding was noted from any of the biopsy sites. Retroflexion of the scope confirned the presence of a small diaphragmatic hernia. The scope was then advanced into the duodenum which appeared to be normal as well. At that point the duodenum ?and the stomach were decompressed and the scope was withdrawn from the patient's mouth. The patient extubated and was transferred in stable condition to the Recovery Room for further care. I was present and performed all steps of the procedure. There were no residents to assist with this case. Rob Marcos M.D., Ph.D. Surgeon: Ashutosh Marcos MD Anesthesia: MAC Was an Community Support Associate used for this Procedure?: No Estimated blood loss (mL): 0 IV fluids (mL): 400 Urine output (mL): 0 (No Gonzlaes to record output) Pathology: other (1) antrum x1, 2) fundus x1, 3) GE junction x2, 4) distal esophagus x2) Condition: stable Disposition: PACU
[2024-08-16 12:57] VITALS: BP 147/66; PULSE 83; RESP 16; TEMP 36.6; O2SAT 99
[2024-08-16 13:02] VITALS: BP 127/66; PULSE 67; RESP 18; O2SAT 100
[2024-08-16 13:07] VITALS: BP 128/67; PULSE 68; RESP 18; O2SAT 97
[2024-08-16 13:12] VITALS: BP 123/66; PULSE 71; RESP 18; O2SAT 98
[2024-08-16 13:17] VITALS: BP 123/68; PULSE 60; RESP 18; TEMP 37; O2SAT 97
== END 2024-08-16 13:39 | disposition home or self-care (01) ==
PROVIDERS: Nurse Practitioner; PCP Family Medicine; Visit Provider Surgery
PROC: 0DJ08ZZ Inspection of Upper Intestinal Tract, Via Natural or Artificial Opening Endoscopic (ICD-10-PCS; CPT 43235; principal; 2024-08-16 11:00)
DX: K21.9 Gastro-esophageal reflux disease without esophagitis (principal); E66.01 Morbid (severe) obesity due to excess calories; Z68.42 Body mass index [BMI] 45.0-49.9, adult; K44.9 Diaphragmatic hernia without obstruction or gangrene; I10 Essential (primary) hypertension; E78.5 Hyperlipidemia, unspecified; Z79.899 Other long term (current) drug therapy; Z88.2 Allergy status to sulfonamides; Z98.890 Other specified postprocedural states; Z87.891 Personal history of nicotine dependence
CPT/HCPCS: 43239; 81025; 88305; 88313; 88342; J1100; J1596; J2250; J2704

== ENCOUNTER → 2024-08-16 08:32 | Outpatient (BNV) | payer OTHER, SELFPAY | PROVIDERS: PCP Family Medicine; Visit Provider Surgery | DX: K44.9 Diaphragmatic hernia without obstruction or gangrene (principal) | CPT/HCPCS: 43239 ==

== ENCOUNTER → 2024-08-22 12:10 | Outpatient (BNVA) | payer OTHER, SELFPAY | PROVIDERS: PCP Family Medicine; Visit Provider Counselor Mental Health ==

== ENCOUNTER → 2024-08-22 12:10 | Outpatient (AMB) | payer OTHER, SELFPAY ==
--- NOTE | 2024-08-22 12:10 | MHC.WMTHER ---
Intake Intake Visit Reasons: VIDEO F/U Allergies sulfamethoxazole [From BACTRIM] Allergy (Unknown, Verified 08/15/24 11:14) TOLD HER NOT TO TAKE BACTRIM trimethoprim [From BACTRIM] Allergy (Unknown, Verified 08/15/24 11:14) TOLD HER NOT TO TAKE BACTRIM PFS Medical History Insomnia Surgical History Hx of colonoscopy History of anal fistulotomy History of removal of cyst H/O wisdom tooth extraction History of section Family History Father Diabetes mellitus Mother HTN (hypertension) Stroke Brother Substance abuse Sister Substance abuse Son No problems noted. Daughter No problems noted. Social History Housing: House Patient Tobacco Use Status: Former Tobacco user Cigarette Packs Per Day: 0.5 Years Smoked: 20 e-Cigarette/Vaping Use: Currently Using (Daily use.) Second Hand Smoke Exposure: No service: No Current occupational status: employed Current occupational exposures/hazards: No Cognitive needs: No Hearing needs: No Vision needs: No Behavioral Health Assessment Weight Management Therapy Therapy Notes Details PT is a years old F/M, who presents for a visit to complete assessment as part of surgical weight loss program. She has been referred to this program by her insurance company, she is pursuing bariatric surgery as a method to loss weight and become a healthier person. She hopes to be active, be and stay healthy. PT is in treatment and reported a Hx of trauma, depression/anxiety and ADHD; States she is stable and denied any recent safety concerns around SI/SA and/or self-harm/other-harm, also there is no history of substance use reported. There is also no evidence for stress/emotional-eating at this time, and scores from BES suggest low risk for binge eating behavior. PHQ- scores also showed no active symptoms/concerns with depression. On the other hand, mental status exam is within normal limits, suggesting person's functioning is not impaired. At this time patient is cleared from the behavioral health standpoint. She will be seen 4-6 weeks post-op for support. Presenting Concerns Referral Source [facility]MP-Provider, PT sees [facility] and started services on 06/22/2024 Reason for referral Completion of behavioral health assessment as part of process for weight-loss surgery. Precipitating Event Obesity. When she had Covid it took her longer to recover, and after going trough that she decided to make a big life change. Living Situation Current Living Situation Own At risk of losing current housing? No Satisfied with current living situation? Yes Comments PT lives with her and 18 y/o son. And the family dog. Food/Weight/Diet Expectations of change Initial Goal is to lose at least 1.5-2 Lbs per week, and about 10% before surgery, which is about 28 pounds. PT started on 07/23 at 279Lbs, then on 07/21 was 268Lbs and reports her weight today is 262Lbs. Patient wants to lose weight and become a healthier and active person. PT is implementing the following: Current meal plan: 2 shakes, 1 meal (3-5pm), 1 shake or a bar at night. Exercise plan: 2 mile walk 5-6 days at week in the morning and ride her bike 1 day at week 5-10 miles. History/Relationship with food -PT reports she has had times on her life that she has binge-eating, but she also has times she doesn't eat all day an then at night she would overeat due to increased appetite. -In early adulthood she has a period of food insecurity that now has lead to over buy foods. -Before starting the program she did not have a good knowledge on nutrition, so she would eat things she was not aware they were not as healthy. Having kids, when they have a bad day then they'll go to grab ice-cream. She and her loves cooking, but when they cook they're is no any portion control or proper amount of certain ingredients like butter/salt/oils. Example of meals before starting the program: Breakfast: skip Lunch: Skip Dinner: Potatoes, steak/chicken, vegetables, always bread with dinner. Was a big meal. Snacks: after dinner, multiple snacks. bag of chips, ice cream, chocolate, candy cheese. Drinks/Liquids: coffee with cream. From 8am to 4pm, 25-30oz at day. History/Relationship with weight She was overweight in childhood but She was very active and practiced sport up until she was 19 y/o. She got at 20m and after having her child she was never able to be under 200Lbs. And after that it has continue up. She has some aunts on her mom's side who are morbidly obese, on her dad's side he has 2 sisters over 400Lbs. In the last 10 years, the patient's Lowest weight was and highest History/Relationship with dieting CrossFit, lost 25Lbs but was hard on her body. Has also tried weight watchers, eating healthy, gym membership. she usually commits to diet/exercise but after not getting the results she expect then she stops and ends up gaining back what she lost. Binge Eating Do you frequently eat large amounts of food in short periods of time, not feeling physically hungry? No Do you feel out of control when you eat a large amount of food in a short period of time? No Do you eat large amounts of food rapidly and typically alone? No Night Eating Do you wake up at least once during the night to eat? No If you wake up in the night, do you find that it is necessary to eat something in order to fall back asleep? No Do you have little or no appetite in the morning and feel very hungry in the evening, often overeating between dinner and when you go to bed? Yes Social History Family history and relationship for second time in 2020. She has 2 children, her daughter is 22 and son is 18 y/o. Parents alive, she has 2 siblings. She doesn't have a relationship with mother or siblings. She has a difficult upbringing. Brothers has substance use issues. Relationship with father is ok. Parental/Familial direct of real estate obligations 18 y/o Son. Developmental history and status Struggled in school but was an average student. Was diagnosed with ADHD on first year of college. Currently takes medication for ADHD. Social support , kids, best friend who lives 20 min away and her friend's mother had bariatric surgery 2 years ago, another friend had surgery several years ago and her boss also had surgery last year. She has 2 friends who walks with her 2 x at week. Community support None. Oriental Orthodox/Spirituality Faithful but not restorationism. Cultural/Ethnic information Swazi background. . Legal Involvement and History Current or historical involvement with the legal system? None reported Education Highest grade completed Bachelors degree. Preferred learning style Auditory Currently enrolled in educational program? No Interested in further educational program? 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 No Meaningful activities Reading, gardening, kayaking, riding bike Financial Situation Describe current financial situation Comfortable Financial assistance? None Service Service? No Mental Health and Addiction Treatment Current/Past substance abuse? No Comments Alcohol: None. Cigarettes/Tobacco:None. Cannabis/Edibles: None. Current/Past addictive behavior concerns? No Psychiatric history PT attends counseling on a weekly basis due to a Hx of PTSD, Anxiety/depression and ADHD. [employer], Clotilde Garcia, COMPUTATIONAL CHEMIST, ENVIRONMENTAL PLANNING ENGINEER. Pt also takes prescribed meds for ADHD. . PT did Crisis/outpatient program in 2007 with [facility] due to debilitating depression after marriage ended and she was going trough a lot of changes and sources of stress. Denied any inpatient for mental health. Denies any past/recent SI/SA and/or any other self-harm/other-harm concerns. Medical and Physical Health Summary Additional Medical History not covered in history None reported Sexual History concerns None reported. Physical exam in the last year? Yes Pain Screening Current pain? No Pain in the last few months? No Medications Is the patient compliant with medications? Yes Does the patient have Fraire Guardian in place? Not applicable Does the patient use complimentary health approaches? Yes (yoga.) Trauma/Abuse History History of trauma? Yes Questionnaires PHQ-9 Over the last 2 weeks, how often have you been bothered by any of the following problems? 1. Little interest or pleasure in doing things: not at all 2. Feeling down, depressed, or hopeless: not at all 3. Trouble falling or staying asleep, or sleeping too much: not at all 4. Feeling tired or having little energy: not at all 5. Poor appetite or overeating: not at all 6. Feeling bad about yourself - or that you are a failure or have let yourself or your family down: not at all 7. Trouble concentrating on things, such as reading the newspaper or watching television: not at all 8. Moving or speaking so slowly that other people could have noticed. Or the opposite - being so fidgety or restless that you have been moving around a lot more than usual: not at all 9. Thoughts that you would be better off or of hurting yourself in some way: not at all Total score: 0 Depression Screening Interpretation: Negative Depression Screening Done: Yes 46833 - PHQ-9 Billing: Yes Source: Developed by Drs. Сергей Garcia, Anais Nicole, Hany Cross and colleagues, with an educational amira from [employer]. Binge Eating Scale Group 1 A. I don't feel self-conscious about my wt. or body size when I'm with others. B. I feel concerned about how I look to others, but it normally does not make me fell disappointed with myself C. I do get self-conscious about my appearance and wt. which makes me feel disappointed in myself. D. I feel very self-conscious about my wt. and frequently I feel intense shame and disgust for myself. I try to avoid social contacts because of my self-consciousness. Response Group 1: D Group 2 A. I don't have any difficulty eating slowly in the proper manner. B. Although I seem to gobble down foods, I don't end up feeling stuffed because of eating to much. C. At times, I tend to eat quickly and then, I feel uncomfortably full afterwards. D. I have the habit of bolting down my food, without really chewing it. When this happens I usually feel uncomfortably stuffed because I've eaten to much. Response Group 2: A Group 3 A. I feel capable to control my eating urges when I want to. B. I feel like I have failed to control my eating more than the average person. C. I feel utterly helpless when it comes to feeling in control of my eating urges. D. Because I feel so helpless about controlling my eating I have become very desperate about trying to get control. Response Group 3: A Group 4 A. I don't have the habit of eating when I'm bored. B. I sometimes eat when I'm bored, but often I'm able to get busy and get my mind off food. C. I have a regular habit of eating when I'm bored, but occasionally, I can use some other activity to get my mind off eating. D. I have a strong habit of eating when I'm bored. Nothing seems to help me breath the habit. Response Group 4: C Group 5 A. I'm usually physically hungry when I eat something. B. Occasionally, I eat something on impulse even though I really am not hungry. C. I have the regular habit of eating foods, that I might not really enjoy, to satisfy a hungry feeling even though physically, I don't need the food. D. Although I'm not physically hungry, I get a hungry feeling in my mouth that only seems to be satisfied when I eat a food, like sandwich, that fills my mouth. Sometimes, when I eat the food to satisfy my mouth hunger, I then spit the food out so I won't gain weight. Response Group 5: A Group 6 A. I don't feel any guilt or self-hate after I overeat. B. After I overeat, occasionally I feel guilt or self-hate. C. Almost all the time I experience strong guilt or self-hate after I overeat. Response Group 6: B Group 7 A. I don't lose total control of my eating when dieting even after periods when I overeat. B. Sometimes when I eat a forbidden food on a diet, I feel like I blew it and eat even more. C. Frequently, I have the habit of saying to myself, I've blown it now, why not go all the way, when I overeat on a diet. When that happens I eat more. D. I have a regular habit of starting a strict diets for myself but I break the diets by going on an eating binge. My life seems to be either a feast or famine. Response Group 7: C Group 8 A. I rarely eat so much food that I feel uncomfortably stuffed afterwards. B. Usually about once a month, I each such a quantity of food, I end up feeling very stuffed. C. I have regular periods during the month when I eat large amounts of food, either at mealtime or at snacks. D. I eat so much food that I regularly feel quite uncomfortable after eating and sometimes a bit nauseous. Response Group 8: A Group 9 A. My level of calorie intake does not go up very high or go down very low on a regular basis. B. Sometimes after I overeat, I will try to reduce my caloric intake to almost nothing to compensate for the excess calories I've eaten. C. I have a regular habit of overeating during the night. It seems that my routine is not to be hungry in the morning but overeat in the evening. D. In my adult years, I have had week-long periods where I practically starve myself. This follows periods when I overeat. It seems I live a life of either feast or famine. Response Group 9: C Group 10 A. I usually am able to stop eating when I want to. I know when enough is enough. B. Every so often, I experience a compulsion to eat which I can't seem to control. C. Frequently, I experience strong urges to eat which I seem unable to control, but at other times I can control my eating urges. D. I feel incapable of controlling urges to eat. I have a fear of not being able to stop eating voluntarily. Response Group 10: B Group 11 A. I don't have any problem stopping eating when I feel full. B. I usually can stop eating when I feel full but occasionally overeat leaving me feeling uncomfortably stuffed. C. I have a problem stopping eating once I start and usually I feel uncomfortably stuffed after I eat a meal. D. Because I have a problem not being able to stop eating when I want, I sometimes have to induce vomiting to relieve my stuffed feeling. Response Group 11: A Group 12 A. I seem to eat just as much when I'm with others, Family social gatherings as when I'm by myself. B. Sometimes, when I'm with other persons, I don't eat as much as I want to eat because I'm self-conscious about my eating. C. Frequently, I eat only a small amount of food when others are present, because I'm very embarrassed about my eating. D. I feel so ashamed about overeating that I pick times to overeat when I know no one will see me. I feel like a closet eater. Response Group 12: C Group 13 A. I eat three meals a day with only an occasional between meal snack. B. I eat 3 meals a day, but I also normally snack between meals. C. When I am snacking heavily, I get in the habit of skipping regular meals. D. There are regular periods when I seem to be continually eating, with no planned meals. Response Group 13: D Group 14 A. I don't think much about trying to control unwanted eating urges. B. At least some of the time, I feel my thoughts are pre-occupied with trying to control my eating urges. C. I feel that frequently I spend much time thinking about how much I ate or about trying not to eat anymore. D. It seems to me that most of my waking hours are pre-occupied by thoughts about eating or not eating. I feel like I'm constantly struggling not to eat. Response Group 14: A Group 15 A. I don't think about food a great deal. B. I have strong craving for food but they last only for brief periods of time. C. I have days when I can't seem to think about anything else but food. D. Most of my days seem to be pre-occupied with thoughts about food. I feel like I live to eat. Response Group 15: A Group 16 A. I usually know whether or not I'm physically hungry. I take the right portion of food to satisfy me. B. Occasionally, I feel uncertain about knowing whether or not I'm physically hungry. A these times it's hard to know how much food I should take to satisfy me. C. Even though I might know how many calories I should eat, I don't have any idea what is a normal amount of food for me. 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 This provider has advised client to utilize available resources such as peer support group, Facebook group and group therapy, also the patient has been informed of support available at anytime while she is part of this program. Next rafael: 4-6 weeks post-op Telehealth Telehealth Telehealth Platform: Dada Location of provider rendering services: other Location of patient: address on file Patient Identification confirmed using: Name, : Yes Telehealth method: voice only Patient verbally consented to treatment: Yes Patient verbally consented to billing insurance company: Yes Patient informed of any privacy concerns related to visit: No Minutes spent on Phone/Video with Pt.: 60 Coding Level of Care Code Established Pt Tele Psytx >53 mins (37717) Patient Type Established Diagnoses Trauma and stressor-related disorder F43.9 Time Spent (min) 60
== END ==
PROVIDERS: PCP Family Medicine; Visit Provider Counselor Mental Health
DX: F43.9 Reaction to severe stress, unspecified (principal)
CPT/HCPCS: 90837

== ENCOUNTER 2024-08-31 10:00 | Outpatient (REF) | payer OTHER, SELFPAY ==
--- NOTE | ~2024-08-31 | FL_ITS ---
EXAMINATION: XR FLUOROSCOPY UPPER GI WITH AIR CLINICAL INFORMATION: Preoperative evaluation prior to bariatric surgery COMPARISON: None TECHNIQUE: Fluoroscopic air contrast upper GI examination was performed utilizing standard techniques with thin and thick barium and effervescent granules. Numerous spot images were obtained. FINDINGS: Dual and single contrast images of the esophagus demonstrate normal caliber, contour, and mucosal pattern. Mild cricopharyngeal achalasia is present. No evidence of stricture, mass, or ulcerations identified. Esophageal peristalsis is mildly disorganized. A small type I hiatal hernia is present. No significant gastroesophageal reflux was seen during the course of the examination and on reflux views. Dual contrast and single contrast images of the stomach demonstrated a normal contour. Evaluation of the gastric mucosa is limited due to poor coating of the barium. Contrast freely passed into the gastric antrum and duodenal bulb without delay. Single and air-contrast images of the duodenal bulb demonstrate no abnormality. The duodenal sweep has a normal appearance, course, and mucosal fold appearance. The imaged proximal jejunum has a normal fold pattern and caliber. FLUOROSCOPY TIME: 3 minutes 4 seconds DOSE AREA PRODUCT: 2350 uGy-m2 (microgray-meter squared) FL/FL upper GI w air IMPRESSION: 1. Mild cricopharyngeal achalasia. 2. Mildly disorganized esophageal peristalsis. 3. Small type I hiatal hernia without evidence of gastroesophageal reflux. 4. Limited evaluation of the gastric mucosa due to poor coating of the barium. This procedure was performed by Zacarias Muñoz PA-C, and supervised by Dr. Beasley Electronically signed by: Jose Eduardo Beasley MD 09/01/2024 01:04 PM EDT
== END 2024-08-31 10:01 | disposition home or self-care (01) ==
LOC: HO.XRAY 10:00
PROVIDERS: PCP Family Medicine; Visit Provider Physician Assistant Surgical
DX: E66.01 Morbid (severe) obesity due to excess calories (principal); E78.5 Hyperlipidemia, unspecified; I10 Essential (primary) hypertension
CPT/HCPCS: 74246

== ENCOUNTER → 2024-08-31 10:02 | Outpatient (BNV) | payer OTHER, SELFPAY | PROVIDERS: PCP Family Medicine; Visit Provider Radiology Diagnostic Radiology | DX: Z01.818 Encounter for other preprocedural examination (principal) | CPT/HCPCS: 74246 ==

== ENCOUNTER 2024-09-02 08:19 | Outpatient (AMB) | payer OTHER, SELFPAY ==
--- NOTE | 2024-09-02 07:44 | MHC.OFFVISWM ---
VS Expanded 09/02/24 07:54 Height 5 ft 3 in Weight 256 lb 2 oz BMI 45.4 Body Fat % 60.8 Body Fat Mass 155.7 Fat Free Mass 100.4 Visceral Fat Rating 26 Body Water % 26.9 Body Water Mass 68.9 Basal Metabolic Rate/Score 1,331 Intake Visit Reasons: TV Pre Op LSG 09/07/24 Allergies sulfamethoxazole [From BACTRIM] Allergy (Unknown, Verified 09/02/24 07:45) TOLD HER NOT TO TAKE BACTRIM trimethoprim [From BACTRIM] Allergy (Unknown, Verified 09/02/24 07:45) TOLD HER NOT TO TAKE BACTRIM Medication List - Last Reconciled 09/02/24 by Ashutosh Marcos MD atorvastatin 20 mg PO BEDTIME 30 days cholecalciferol (vitamin D3) 125 mcg PO DAILY 90 days cyanocobalamin (vitamin B-12) 500 mcg PO DAILY 90 days melatonin 2.5 mg PO methylphenidate HCl 20 mg PO QAM 30 days multivitamin 1 tab PO DAILY ondansetron 4 mg PO Q12H pantoprazole 40 mg PO DAILY polyethylene glycol 3350 17 grams PO DAILY sucralfate 10 mL PO BID thiamine HCl (vitamin B1) 100 mg PO DAILY 90 days HPI HPI TV Pre Op LSG 09/07/24: Details: Start time: 7.42am, End time: 8.02am ?I spent 15 minutes speaking with the patient on the phone plus an additional 5 minutes reviewing and updating records for a total of 20 minutes HPI Comments Details: Overall weight loss: 26 lbs, or 9.21% TBWL Is doing 3 Ascent protein shakes (1/2 scoop in water) and one meal (9 forks of protein and 9 forks of salad or vegetables) Exercise: is doing walking outside for 330 calories PFSH Medical History (Updated 09/02/24 @ 10:11 by Lorri Brown RN) Elevated cholesterol HTN (hypertension) Insomnia Surgical History (Updated 09/02/24 @ 10:11 by Lorri Brown RN) History of esophagogastroduodenoscopy (EGD) Hx of colonoscopy History of anal fistulotomy History of removal of cyst H/O wisdom tooth extraction History of section Family History Father Diabetes mellitus Mother HTN (hypertension) Stroke Brother Substance abuse Sister Substance abuse Son No problems noted. Daughter No problems noted. Social History Housing: House Are you a primary healthcare technician to a significant other at home: No Do you presently have visiting nurse or other home services: No Patient Tobacco Use Status: Former Tobacco user Cigarette Packs Per Day: 0.5 Years Smoked: 20 e-Cigarette/Vaping Use: Currently Using (Daily use.) Second Hand Smoke Exposure: No service: No Current occupational status: employed Current occupational exposures/hazards: No Cognitive needs: No Hearing needs: No Vision needs: No Physical Exam Vital Signs: BMI result Body Mass Index 45.4 Telehealth Telehealth Telehealth Platform: Telephone Location of provider rendering services: practice address Location of patient: address on file Patient Identification confirmed using: Name, : Yes Telehealth method: voice only Patient verbally consented to treatment: Yes Patient verbally consented to billing insurance company: Yes Patient informed of any privacy concerns related to visit: Yes Minutes spent on Phone/Video with Pt.: 20 Assessment & Plan Assessment & Plan (1) Morbid obesity: Code(s): E66.01 - Morbid (severe) obesity due to excess calories Category: Medical Plan: 1. Plan for lap sleeve gastrectomy including upper GI endoscopy. All tests has been completed and reviewed and the patient is cleared for the surgery. ?If diaphragmatic or ventral hernias are present at time of surgery, these will be repaired laparoscopically as well. Risks and complications were discussed in detail including possible conversion to an open procedure, anastomotic leak, bleeding requiring transfusion, small bowel obstruction, , DVT and pulmonary embolism, cardiac, or pulmonary complications, as field liability generalist complications such as anastomotic ulcer, insufficient weight loss and vitamin deficiencies. I emphasized the importance of close follow-up, adherence to instructions and good communication. So far she has proven to be an excellent communicator and very compliant with all our directions accomplishing a great weight loss. I believe that she is an excellent candidate and she is ready. 2. Preop prescriptions were provided and explained the purpose of each one. Need to be purchased preop. Start Pantoprazole now as you get it from the pharmacy, 1 pill per day. Sucralfate and Zofran are for after surgery as needed. 3. Bowel prep: please do 7 packets ?of Miralax mixing each one with a an 8oz glass of water, crystal light, gatorade zero, or propel ?on 09/05/24 and the same amount on 09/06/24. The Miralax you begin with one packet at a time in 8oz water or crystal light, gatorade zero, or propel ?as early in the day as you can and you do them back to back until you finish them. Continue the protein shakes during ?the bowel prep. 4. Needs to purchase 1oz medicine cups . 5. Needs to purchase Children's liquid Tylenol for postop pain control. 6. Avoid aspirin, motrin, Advil, Aleve, Ibuprofen, Naproxyn. Tylenol is OK. 7. She needs to purchase the Celebrate 4:1 protein shakes or the Celebrate multivitamins from the hospital's gift shop. 8. Will do basic preop blood work-up today 09/02/2024 fasting for 12 hours and is scheduled to see the Anesthesiologist prior to the day of surgery. 9. Importance of adherence to postop folllow-up and recommendations was underscored and she understands that. 10. Stop food and bars as of today and continue with 2 Ascent protein shakes (HALF scoop EACH in 8oz water) at 9am-11am, and 12pm-2pm, and three more Acent protein shake with ONE scoop EACH in 8oz of water at 3pm-5pm, 6pm-8pm and 9pm-11pm 11. No soups, broths or V8 12. The patient's?medical?history has been reviewed and they are considered low risk for post op DVT and therefore DVT prophylaxis is not considered necessary. Travel after surgery was reviewed. The patient has not disclosed any travel plans during the first 30 days after surgery and they have been advised that within the first 30 days after surgery any bus, plane, train or car travel over 2 hours in duration is contraindicated due to the possibility of developing blood clots from immobility. Any travel, needs to include periods of ambulation of 10 minutes in duration every 2 hours.? Patient was instructed to discuss any plans for travel during this period with their bariatric surgeon.? 13. Please take at the day of surgery the following medications: NONE 14. Stop any control pills and don't use them for one month after surgery 15. Absolutely no smoking or vaping, or marijuana until the surgery and for at least the first 4 weeks. Only nicotine patches are allowed. 16. Send me weight measurements on Thursday09/07/24, the day of surgery before you go to the hospital. 17. Avoid any steroids by mouth for any reason. Let me know if someone prescribes them to you 18. These instructions supersede anything else you read in the handbook, anything you watched in videos or classes or you were told by any other provider. If there is any conflict, you follow the above instructions and nothing else. Orders: Orders TSH reflex Free T4 Today E66.01 - Morbid (severe) obesity due to excess calories, E78.5 - Hyperlipidemia, unspecified, I10 - Essential (primary) hypertension Prothrombin Time INR Today E66.01 - Morbid (severe) obesity due to excess calories, E78.5 - Hyperlipidemia, unspecified, I10 - Essential (primary) hypertension Complete Blood Count Auto Diff Today E66.01 - Morbid (severe) obesity due to excess calories, E78.5 - Hyperlipidemia, unspecified, I10 - Essential (primary) hypertension Comprehensive Met. Panel Today E66.01 - Morbid (severe) obesity due to excess calories, E78.5 - Hyperlipidemia, unspecified, I10 - Essential (primary) hypertension Hemoglobin A1c Today E66.01 - Morbid (severe) obesity due to excess calories, E78.5 - Hyperlipidemia, unspecified, I10 - Essential (primary) hypertension Lipid Panel Today E66.01 - Morbid (severe) obesity due to excess calories, E78.5 - Hyperlipidemia, unspecified, I10 - Essential (primary) hypertension Type and Screen Today E66.01 - Morbid (severe) obesity due to excess calories, E78.5 - Hyperlipidemia, unspecified, I10 - Essential (primary) hypertension C Reactive Protein Today E66.01 - Morbid (severe) obesity due to excess calories, E78.5 - Hyperlipidemia, unspecified, I10 - Essential (primary) hypertension Partial Thromboplastin Time Today E66.01 - Morbid (severe) obesity due to excess calories, E78.5 - Hyperlipidemia, unspecified, I10 - Essential (primary) hypertension Insulin Today E66.01 - Morbid (severe) obesity due to excess calories, E78.5 - Hyperlipidemia, unspecified, I10 - Essential (primary) hypertension Medications: New polyethylene glycol 3350 Mix each measuring cup with 8oz of water, Crystal light, or Gatorade zero, or Propel and do 7 measuring cups on 09/05/24 and another 7 measuring cups on 09/06/24 17 grams PO DAILY 238 grams 0RF Z01.818 - Encounter for other preprocedural examination pantoprazole 40 mg PO DAILY 90 tabs 0RF K21.9 - Gastro-esophageal reflux disease without esophagitis sucralfate 10 mL PO BID 600 mL 2RF K21.9 - Gastro-esophageal reflux disease without esophagitis ondansetron Only take one every 12 hours as needed if you have nausea 4 mg PO Q12H 20 tabs 0RF nausea and vomiting R11.0 - Nausea
[2024-09-02 07:54] VITALS: BMI 45.4
== END 2024-09-02 11:39 | disposition home or self-care (01) ==
LOC: HO.HBS 08:19
PROVIDERS: PCP Family Medicine; Visit Provider Surgery
DX: E66.01 Morbid (severe) obesity due to excess calories (principal)
CPT/HCPCS: 99213

== ENCOUNTER → 2024-09-02 08:19 | Outpatient (BNVA) | payer OTHER, SELFPAY | PROVIDERS: PCP Family Medicine; Visit Provider Surgery | DX: E66.01 Morbid (severe) obesity due to excess calories (principal); E78.5 Hyperlipidemia, unspecified; I10 Essential (primary) hypertension; K21.9 Gastro-esophageal reflux disease without esophagitis; R11.0 Nausea; Z01.818 Encounter for other preprocedural examination ==

== ENCOUNTER 2024-09-07 06:08 | Inpatient (IN) | payer OTHER, SELFPAY ==
[2024-09-02 10:50] VITALS: BMI 45.5
[2024-09-02 12:23] LABS: MANUAL DIFF FLAG NO
[2024-09-02 13:36] LABS: Prothrombin Time 11.9 SEC (10.9-12.4)
[2024-09-02 13:37] LABS: Basophils Absolute Auto 0.1 X10*3/uL (0.0-0.2); Eosinophils Absolute Auto 0.1 X10*3/uL (0.0-0.4); Hematocrit 42.5 % (37.0-47.0); Hemoglobin 14.3 g/dl (12.0-16.0); Imm Gran Abs Auto 0.03 X10*3/uL (0.00-0.03); Imm Gran Pct Auto 0.4 % (0.0-0.4); Lymphocytes Absolute Auto 1.9 X10*3/uL (1.2-4.9); Lymphocytes Percent Auto 24.4 % (20-40); Mean Corpuscular HGB Conc 33.6 g/dl (31.0-35.0); Mean Corpuscular Hemoglobin 31.3 pg (27.0-33.0); Mean Platelet Volume 10.3 fL (9.4-12.3); Monocytes Absolute Auto 0.5 X10*3/uL (0.1-1.2); Monocytes Percent Auto 6.6 % (2-11); Neutrophils Absolute Auto 5.2 x10*3/uL (2.0-8.3); Neutrophils Percent Auto 66.6 % (45-73); Platelet Count 341 X10*3/uL (160-400); Red Blood Count 4.57 X10*6/uL (4.20-5.50); Red Cell Distribution Width 12.3 % (11.0-16.0); White Blood Count 7.8 X10*3/uL (4.8-10.8)
[2024-09-02 13:39] LABS: Estimated Average Glucose 97 mg/dL; Hemoglobin A1C 112.8627 umol/L
[2024-09-02 14:10] LABS: Alanine Aminotransferase 15 U/L (0-31); Albumin Level 4.4 g/dL (3.5-5.0); Alkaline Phosphatase 73 U/L (39-117); Anion Gap 12 (12-20); Aspartate Amino Transferase 14 U/L (5-31); Bilirubin Total 1.2 mg/dL (0.0-1.0); Blood Urea Nitrogen 21 mg/dL (9-16); Calcium 9.5 mg/dL (8.4-10.2); Carbon Dioxide 23 mmol/L (22-29); Chloride 109 mmol/L (96-108); Cholesterol 134 mg/dL (<200); Creatinine Clr Calc Pharmacy 101.7; Estimated Glomerular Filt Rate > 60; Glucose Random 85 mg/dL (60-115); HDL Cholesterol 41 mg/dL (>40); LDL Cholesterol Calculated 83 mg/dL (<100); Sodium 140 mmol/L (135-145); Total Protein 7.5 g/dL (6.5-8.0); Triglycerides 54 mg/dL (<150)
--- NOTE | 2024-09-02 14:16 | HO.ANESPROP2 ---
Documented by User: Sona Edmonds NP 09/02/24 14:16 HPI - Anesthesia Eval Consult details Narrative: 44yo F for Gastrectomy Sleeve, EGD possible Diaphragmatic Hernia,possible Ventral Hernia,possible Open PMFSH Active Problems Active Problems: All Active Problems Smoker (Acute) Morbid obesity (Acute) Morbid obesity with BMI of 45.0-49.9, adult (Acute) Hyperlipidemia (Acute) ADHD (Acute) Essential hypertension (Acute) Breast cancer screening by mammogram (Acute) Screening for cervical cancer (Acute) Adult general medical exam (Acute) History of COVID-19 (Acute) Dyspnea on exertion (Acute) Insomnia (Acute) Past Medical History Medical History Elevated cholesterol HTN (hypertension) Insomnia Family History Family History Father Diabetes mellitus Mother HTN (hypertension) Stroke Brother Substance abuse Sister Substance abuse Son No problems noted. Daughter No problems noted. Family history of problems with anesthesia: No Surgical History Surgical History History of esophagogastroduodenoscopy (EGD) Hx of colonoscopy History of anal fistulotomy History of removal of cyst H/O wisdom tooth extraction History of section History of Problems with Anesthesia: No Social History Social History Housing: House Are you a primary inspector health care facilities to a significant other at home: No Do you presently have visiting nurse or other home services: No Patient Tobacco Use Status: Former Tobacco user Cigarette Packs Per Day: 0.5 Years Smoked: 20 e-Cigarette/Vaping Use: Currently Using (Daily use.) Second Hand Smoke Exposure: No Use of substances other than those prescribed or required for medical reasons: No Have you been hit, kicked, punched, or otherwise hurt by someone within the past year? If so, by whom?: No Are you DNR?: No Advance Directives: No Advance Directives Information Provided: No Advance Directives on File: No Recently lost weight without trying: No Eating poorly because of decreased appetite: No Nutrition Risks: No Nutritional Risk Patient : No : No Poor oral hygiene: No service: No Current occupational status: employed Current occupational exposures/hazards: No Cognitive needs: No Hearing needs: No Vision needs: No Meds Allergies Allergy/AdvReac Type Severity Reaction Status Date / Time sulfamethoxazole Allergy Unknown TOLD Verified 09/07/24 07:18 [From BACTRIM] HER NOT TO TAKE BACTRIM trimethoprim [From BACTRIM] Allergy Unknown TOLD Verified 09/07/24 07:18 HER NOT TO TAKE BACTRIM Home Medications ?Medication ?Instructions ?Recorded ?Confirmed ?Last Taken ?Type multivitamin 1 tab PO DAILY 06/03/24 09/02/24 09/06/24 History melatonin 3 mg capsule 3 mg PO BEDTIME PRN Insomnia 09/02/24 09/02/24 09/06/24 History ondansetron 4 mg disintegrating 4 mg PO Q12H PRN nausea and 09/02/24 09/02/24 Unknown History tablet vomiting Exam Height,Weight and Vital Signs: Height 5 ft 3 in Weight 116.483 kg Pertinent Lab Results Pertinent Lab Results: Laboratory Tests 09/02/24 12:22 WBC 7.8 RBC 4.57 Hgb 14.3 Hct 42.5 MCV 93.0 MCH 31.3 MCHC 33.6 RDW 12.3 Plt Count 341 MPV 10.3 Immature Gran % (Auto) 0.4 Neut % (Auto) 66.6 Lymph % (Auto) 24.4 [place] % (Auto) 6.6 Eos % (Auto) 1.0 Baso % (Auto) 1.0 Lymph # (Auto) 1.9 [place] # (Auto) 0.5 Eos # (Auto) 0.1 Baso # (Auto) 0.1 Abs Immat Gran (auto) 0.03 Absolute Neuts (auto) 5.2 Absolute Nucleated RBC 0.000 Nucleated RBC % (auto) 0.0 PT 11.9 INR 1.0 APTT 31.0 Sodium 140 Potassium 4.0 Chloride 109 H Carbon Dioxide 23 Anion Gap 12 BUN 21 H Creatinine 0.86 Estim Creat Clear Calc 101.7 Estimated GFR > 60 Random Glucose 85 Estimat Average Glucose 97 Hemoglobin A1c % 5.0 Calcium 9.5 Total Bilirubin 1.2 H AST 14 ALT 15 Alkaline Phosphatase 73 C-Reactive Protein 0.30 Total Protein 7.5 Albumin 4.4 Triglycerides 54 Cholesterol 134 LDL Cholesterol, Calc 83 HDL Cholesterol 41 Narrative Narrative: EKG 05/2024 Vent. Rate : 074 BPM Atrial Rate : 074 BPM P-R Int : 154 ms QRS Dur : 084 ms QT Int : 382 ms P-R-T Axes : 028 -05 001 degrees QTc Int : 424 ms Normal sinus rhythm Normal ECG No previous ECGs available Assessment and Plan Assessment Anesthesia Assessment: Chart Reviewed Final Anesthetic Review Family History of Problems with Anesthesia: No History of Problems with Anesthesia: No Documented by User: Lucia Galeano MD 09/07/24 07:38 HPI - Anesthesia Eval Consult details Narrative: 44yo F for EGD, Laparoscopic Sleeve Gastrectomy, possible Diaphragmatic Hernia repair, possible Ventral Hernia repair, possible Open PMFSH Past Medical History Medical History Elevated cholesterol HTN (hypertension) Insomnia Family History Family History Father Diabetes mellitus Mother HTN (hypertension) Stroke Brother Substance abuse Sister Substance abuse Son No problems noted. Daughter No problems noted. Family history of problems with anesthesia: No Surgical History Surgical History History of esophagogastroduodenoscopy (EGD) Hx of colonoscopy History of anal fistulotomy History of removal of cyst H/O wisdom tooth extraction History of section History of Problems with Anesthesia: No Social History Social History Housing: House Are you a primary inspector health care facilities to a significant other at home: No Do you presently have visiting nurse or other home services: No Patient Tobacco Use Status: Former Tobacco user Cigarette Packs Per Day: 0.5 Years Smoked: 20 e-Cigarette/Vaping Use: Currently Using (Daily use.) Second Hand Smoke Exposure: No Use of substances other than those prescribed or required for medical reasons: No Have you been hit, kicked, punched, or otherwise hurt by someone within the past year? If so, by whom?: No Are you DNR?: No Advance Directives: No Advance Directives Information Provided: No Advance Directives on File: No Recently lost weight without trying: No Eating poorly because of decreased appetite: No Nutrition Risks: No Nutritional Risk Patient : No : No Poor oral hygiene: No service: No Current occupational status: employed Current occupational exposures/hazards: No Cognitive needs: No Hearing needs: No Vision needs: No Meds Allergies Allergy/AdvReac Type Severity Reaction Status Date / Time sulfamethoxazole Allergy Unknown TOLD Verified 09/07/24 07:18 [From BACTRIM] HER NOT TO TAKE BACTRIM trimethoprim [From BACTRIM] Allergy Unknown TOLD Verified 09/07/24 07:18 HER NOT TO TAKE BACTRIM Home Medications ?Medication ?Instructions ?Recorded ?Confirmed ?Last Taken ?Type multivitamin 1 tab PO DAILY 06/03/24 09/02/24 09/06/24 History melatonin 3 mg capsule 3 mg PO BEDTIME PRN Insomnia 09/02/24 09/02/24 09/06/24 History ondansetron 4 mg disintegrating 4 mg PO Q12H PRN nausea and 09/02/24 09/02/24 Unknown History tablet vomiting Exam Height,Weight and Vital Signs: Height 5 ft 3 in Weight 116.483 kg Vital Signs Temp Pulse Resp BP Pulse Ox O2 Del Method 09/07/24 06:29 97.8 F 56 15 135/85 97 Room Air Pertinent Lab Results Pertinent Lab Results: Laboratory Tests 09/02/24 12:22 WBC 7.8 RBC 4.57 Hgb 14.3 Hct 42.5 MCV 93.0 MCH 31.3 MCHC 33.6 RDW 12.3 Plt Count 341 MPV 10.3 Immature Gran % (Auto) 0.4 Neut % (Auto) 66.6 Lymph % (Auto) 24.4 [place] % (Auto) 6.6 Eos % (Auto) 1.0 Baso % (Auto) 1.0 Lymph # (Auto) 1.9 [place] # (Auto) 0.5 Eos # (Auto) 0.1 Baso # (Auto) 0.1 Abs Immat Gran (auto) 0.03 Absolute Neuts (auto) 5.2 Absolute Nucleated RBC 0.000 Nucleated RBC % (auto) 0.0 PT 11.9 INR 1.0 APTT 31.0 Sodium 140 Potassium 4.0 Chloride 109 H Carbon Dioxide 23 Anion Gap 12 BUN 21 H Creatinine 0.86 Estim Creat Clear Calc 101.7 Estimated GFR > 60 Random Glucose 85 Estimat Average Glucose 97 Hemoglobin A1c % 5.0 Calcium 9.5 Total Bilirubin 1.2 H AST 14 ALT 15 Alkaline Phosphatase 73 C-Reactive Protein 0.30 Total Protein 7.5 Albumin 4.4 Triglycerides 54 Cholesterol 134 LDL Cholesterol, Calc 83 HDL Cholesterol 41 Laboratory Results - last 24 hr 09/07/24 06:15 Urine Test NEGATIVE Airway Mallampati Class: II TM Dist: >3cm Neck ROM: Full Loose/Missing/Broken Teeth: No (Denies broken, loose, missing teeth) Heart: RRR Lungs: CTAB Assessment and Plan Assessment Anesthesia Assessment: Anesthesia Plan Discussed and Chart Reviewed Final Anesthetic Review Family History of Problems with Anesthesia: No History of Problems with Anesthesia: No NPO: Yes ASA Class: III Final Preanesthetic Review: No Changes in Pt Med Stat, Meds/Allgs Chart Reviewed, Consent Obtained/Reviewed and Anes Risks/Benef Reviewed Patient Risk: Intermediate Procedure Risk: Intermediate Assessment/Block/Sedation in SS: Assess/Block/Sedation-SS Anesthetic Plan Anesthetic Plan: GA Disposition: Inp. Admit - Standard Bed
[2024-09-02 14:31] LABS: Insulin 11 uU/mL (2-29); TSH reflex Free T4 1.38 uIU/mL (0.32-4.0)
[2024-09-07] VITALS (18 sets, daily range): BP systolic 122–160; BP diastolic 61–97; PULSE 51–73; RESP 12–18; TEMP 36.2–37.2; O2SAT 96–100; BMI 43.8
[2024-09-07 06:24] LABS: UPreg QC Valid YES
[2024-09-07 06:25] LABS: Urine Pregnancy NEGATIVE (NEGATIVE)
[2024-09-07] MEDS: Lactated Ringers 1,000 ML 999 ML IV (06:47)
[2024-09-07] MEDS: Aprepitant 32 MG/4.4 ML VIAL IVPUSH (06:51)
--- NOTE | 2024-09-07 07:20 | PHA.MEDREC ---
Pharmacy Consult ? Medication Reconciliation Pharmacy has reviewed the medication reconciliation done by nursing.
--- NOTE | 2024-09-07 07:39 | MHC.SHP ---
Pre-Procedural Eval Section A - 24 Hr Update-Section A only Date of Service: 09/07/24 The patient is an INPATIENT: Yes The patient has been examined within 24 hours of the surgical procedure. The History & Physical has been completed within 30 days and I have reviewed it.: Yes Section B - Complete if H&P > 30 days Chief Complaint: Morbid (severe) obesity due to excess calories Relevant Family History (Specify if Yes): No Relevant Social History: None Present Medications: None Medical History: No relevant PMH History of Previous Operations: No relevant previous surgery Allergies: Allergies Allergy/AdvReac Type Severity Reaction Status Date / Time sulfamethoxazole Allergy Unknown TOLD Verified 09/07/24 07:18 [From BACTRIM] HER NOT TO TAKE BACTRIM trimethoprim [From BACTRIM] Allergy Unknown MD TOLD Verified 09/07/24 07:18 HER NOT TO TAKE BACTRIM Review of Systems Sugical H&P ROS: Negative: Constitution, Cardiovascular, Respiratory, Neurological, Psychiatric, Hem-Onc, Allergic/Immunologic, Gastrointestinal, Genitourinary, Musculoskeletal, Integumentary, Endocrine and Eyes/Ears/Nose/Throat Exam Surgical H&P Exam: Normal: HEENT, Normal: Heart, Normal: Lungs, Normal: Extremities, Normal: Abdomen, Normal: Skin and Normal: Neurological Plan Diagnosis/Plan: Unchanged I have reviewed the history and physical and performed a pertinent physical examination on my patient. No changes have occurred unless specified. Time Spent With Patient Time: Total time managing care of this patient today ____ minutes.
--- NOTE | 2024-09-07 10:21 | PM.DS ---
DS: Providers Provider Date of Service: 09/08/24 Date of admission: 09/07/24 06:08 Primary care physician: Jon Messer MD DS: Summary Hospital Course Hospital Course: ADMITTING DIAGNOSIS: morbid obesity, htn, adhd, hld ? DISCHARGE DIAGNOSIS: same, s/p laparoscopic sleeve gastrectomy ? PAST SURGICAL HISTORY: cesarian section ? PROCEDURE: upper endoscopy, laparoscopic sleeve gastrectomy ? DISCHARGE SUMMARY: ? History of Present Illness: ? The patient is a?44 year-old woman with a BMI of?49.6 kg/m2 and associated co-morbidities as described above. The patient had extensive work-up,lost?23.8 lbs preoperatively and was electively scheduled for laparoscopic, possible open sleeve gastrectomy and gastropexy. Risks and complications of the surgery were discussed with the patient in advance, particularly the possibility of , pulmonary embolism, anastomotic leak, bleeding, bowel injury, GERD, cardiac, renal or pulmonary complications. The patient understood all the risks and was in agreement with the surgical plan. ? Hospital Course: ? The patient underwent an uneventful laparoscopic sleeve gastrectomy with gastropexy on the day of admission. Postoperatively, the patient was transferred to the surgical floor. The patient received IV Acetaminophen and IV dilaudid for pain control. Patient was started on bariatric phase 1 diet POD #0. On postoperative day one, the patient was feeling well without nausea, vomiting, fevers, or tachycardia. The patient had some mild incisional pain and the abdomen was soft. ? On the morning of postoperative day one, the patient was continued on 1 ounce of water or ice every half hour. During the day, the patient did fairly well, having some incisional pain, but able to ambulate adequately and to tolerate liquids well. ? Since the patient is doing well, we decided that the patient was ready to be discharged. The patient was given instructions to follow-up with me next week and to call my office for any fever over 101, persistent abdominal pain, nausea, vomiting, GERD, symptoms of DVT such as calf tenderness, or leg swelling, or pulmonary embolism such as chest pain or shortness of breath. The patient was also instructed to drink 40-60 ounces of liquids per day using the 1-ounce cups. The patient had been given prescriptions for Tylenol for pain, Zofran prn for nausea, and pantoprazole and carafate previously. The patient was encouraged to ambulate and use the incentive spirometer. The patient was allowed to shower, but no baths, and encouraged to stay active at home. All of these instructions were given to the patient personally. All questions were answered and the patient understood all instructions, the instructions were also given to the patient in print. Time Attestation Total time managing care of this patient today: 25 mintues. Discharge Coordination Time (in mins): 25 Quality: Safe Use of Opioids Does Pt have an Active Cancer Diagnosis on the Problem List?: No Quality: Stroke Does the patient have a stroke diagnosis?: No Physical Exam Vital Signs: Vital Signs: Last Vital Signs Temp 97.8 F 09/07/24 06:29 Pulse 56 09/07/24 06:29 Resp 15 09/07/24 06:29 BP 135/85 09/07/24 06:29 Pulse Ox 97 09/07/24 06:29 O2 Del Method Room Air 09/07/24 06:29 BMI result Body Mass Index 43.8 DS: Data Data Completed and Pending Pending studies at discharge: Pending at discharge 09/07/24 09:49 Surgical [PTH] Routine Labs on day of discharge: Laboratory Results - last 24 hr 09/07/24 06:15 Urine Test NEGATIVE Discharge Plan Discharge Anticipated Discharge Date/Time: 09/08/24 10:00 Patient Disposition: Home, Self-Care Discharge Diagnosis: s/p laparoscopic sleeve gastrectomy Referrals: Jon Messer MD [Primary Care Provider] - 1 Week Discharge Medications: Continued atorvastatin 20 mg tablet 20 mg PO BEDTIME 30 Days Qty: 30 3RF ondansetron 4 mg tablet,disintegrating 4 mg PO Q12H PRN (Reason: nausea and vomiting) Rx Instructions: Only take one every 12 hours as needed if you have nausea methylphenidate HCl 20 mg tablet 20 mg PO DAILY pantoprazole 40 mg tablet,delayed release (DR/EC) 40 mg PO DAILY Qty: 90 0RF sucralfate 100 mg/mL suspension 10 ml PO BID Qty: 600 2RF Held melatonin 3 mg Capsule 3 mg PO BEDTIME PRN (Reason: Insomnia) Hold Instructions: Resume on 09/15/24. Discontinued cholecalciferol (vitamin D3) 125 mcg (5,000 unit) capsule 125 mcg PO DAILY 90 Days Qty: 90 1RF cyanocobalamin (vitamin B-12) 500 mcg tablet 500 mcg PO DAILY 90 Days Qty: 90 0RF thiamine HCl (vitamin B1) 100 mg tablet 100 mg PO DAILY 90 Days Qty: 90 0RF multivitamin Tablet 1 tab PO DAILY Discharge Orders: Discharge Order (Routine); Ordered 09/08/24 Ordered By: Ashutosh Marcos Activity on Discharge: No heavy lifting Stand Alone Forms: Patient Portal Discharge page Print Language: Ukrainian Care Plan Goals: weight loss Health Concerns: morbid obesity Plan of Treatment: No tub baths, sex or returning to work until discussed at first post op appointment. No exercise, alcohol, tobacco or illegal drug use. Continue to use incentive spirometer hourly while awake. Walk in home for 5- 10 minutes every 2 hours during the first week. Follow all instructions in the bariatric handbook and call with any questions.Discharge Instructions 1. Please call your doctor or come back to the emergency room should any new symptoms arise. 2. You will receive a courtesy call from [facility] 24-48 hours after discharge. 3. Activity: abstain from alcohol, practice limited stair climbing, no bending, no driving, no exercise, no illicit substances, no lifting, no sex, no tub bath, no work. 4. Diet: continue as discussed with Dr. Marcos. 5. Dressing Change/Wound Care: Your incision is covered by clear bandages and guaze underneath. If the area is tender, you may apply an ice pack for short intervals (no more than 20 minutes on, followed by at least 20 minutes off). Do not apply heat. Do not use creams, lotions, or topical antibiotics unless instructed to do so by your surgeon. These can cause infection or allergic reaction. 6. Call your doctor if: - Your temperature exceeds 101.5 F - You experience excessive pain or swelling - You have an unexpected reaction to medication - You have excessive bleeding - You experience continued vomiting/nausea - Your incision begins to separate - Your incision shows signs of infection such as increased redness, swelling, excessive pain, heat, or drainage (light blood or clear fluid is normal) 7. General instructions: No lifting greater than 5 lbs for 1 week and not more than 20lbs the next 3?weeks. No driving until seen at the office in 5-7 days after surgery. If you do not move your bowels in the next 2 days, please tell?Dr. Marcos. Please walk around your home every hour or two to prevent blood clots from forming in your legs. You do not need to wake from sleeping to walk. Please sleep in a bed or couch to prevent kinking at the hips and knees. Please take your incentive spirometer (your lung administrative services coordinator) home with you and use it for the next few days to prevent pneumonia. You may shower, no hot tubs, baths or swimming pools.?Please follow the post op diet instructions you are?given by Dr Marcos? and text me daily at 5-6pm for an update.?If you have any issues or concerns or questions please communicate this to him via text.? The Celebrate shakes have all of the bariatric vitamins you need if you consume these shakes. If you are drinking other protein shakes, you will need to purchase the Celebrate multivitamins and calcium that are available in the hospital gift shop on the first floor of the [facility].??Do not take anything without first discussing with Dr Marcos. Please make sure you are consuming at least 40 ounces of fluids per day starting the?day AFTER your discharge from the hospital. Always drink 1-2 ml per minute using the 5ml?syringe. If you drink faster you may experience?bloating,?gas pain, burping, nausea or heartburn. In that case please slow down your pace and use the syringe to?understand better the?proper?pace and volume of drinking. Do not hesitate to contact the office with any questions at . The patient's medical history has been reviewed and they are considered low risk for post op DVT and therefore DVT prophylaxis is not considered necessary. Travel after surgery was reviewed. The patient has not disclosed any travel plans during the first 30 days after surgery and they have been advised that within the first 30 days after surgery any bus, plane, train or car travel over 2 hours in duration is contraindicated due to the possibility of developing blood clots from immobility. Any travel, needs to include periods of ambulation of 10 minutes in duration every 2 hours.? The patient was instructed to discuss any plans for travel during this period with their bariatric surgeon. Assessment: stable s/p laparoscopic sleeve gasterctomy Discharge Date/Time: 09/08/24 09:05
--- NOTE | 2024-09-07 11:00 | PM.OP ---
Brief Operative Note Date of Service: 09/07/24 Pre-op diagnosis: Morbid obesity with comorbidities (see below) Post-op diagnosis: same Procedure: INITIAL PATIENT BMI ON PRESENTATION AT OUR OFFICE:49.4 kg/m2 LAST BMI BEFORE SURGERY: 44 kg/m2 COMORBIDITIES: hyperlipidemia, ADHD, GERD, hypertension, liver steatosis, insomnia ?The patient presented to the Weight Management Program with significant obesity that was negatively impacting the patient's comorbidities as listed above.? The program is a phased program with a special focus on preoperative medical weight management to promote substantial weight loss and prepare the patients for the second phase of the program: bariatric surgery. The patient participated in an intensive weekly lifestyle ?intervention and exercise program during which the patient ?has lost between the initial office visit and the last preoperative visit 36lbs, or 11% of initial actual body weight. It was deemed appropriate for the patient to now have bariatric surgery. In light of the current Covid-19 pandemic and the well documented strong association of obesity and increased risk of worse outcomes if infected with Covid-19 (REFERENCES:https://pubmed.ncbi.nlm.nih.gov/32466676/,?https://pubmed.ncbi.nlm.nih.gov/47913449/), any delay in undergoing bariatric surgery may lead to the patient's worsening health condition and increased?risk of more severe Covid-19 disease if infected. In addition a recent?study from [facility] published in [employer] on 11/18/2021 ([email or web address]) found that, among patients with obesity, substantial weight loss achieved with surgery was associated with improved outcomes of COVID-19 infection. The findings suggest that obesity can be a modifiable risk factor for the severity of COVID-19 infection. In addition, the patient met the BMI-criteria for bariatric surgery based on the BMI on initial presentation. The patient should not be penalized for achieving such weight loss because ?it is not sustainable long-term without surgical intervention and it was achieved in preparation for bariatric surgery ?under my direction and based on my published research ([email or web address]).[email or web address] and?https://www.soard.org/article/[email or web address](49)58156-X/pdf) ?that a 10% preoperative weight loss improves long-term weight loss after surgery and reduces perioperative complications.? Insurance carriers such as [facility] have endorsed my recommendations ?and have included in their policies criteria to include a 10% preoperative weight loss requirement. PROCEDURE: Esophago-gastroscopy, laparoscopic lysis of adhesions, laparoscopic sleeve gastrectomy and laparoscopic gastropexy INDICATIONS: This is a 44 year-old female who was electively scheduled for laparoscopic, possibly open sleeve gastrectomy. The risks and complications of the procedure were discussed with the patient in advance, particularly the possibility of ; pulmonary embolism; staple line leak; bleeding; GERD; cardiac, pulmonary, or renal complications; as well as long-term problems such as insufficient weight loss, vitamin deficiency, strictures, or ulcers. The patient understood all the risks, and was in agreement to proceed with surgery. DESCRIPTION OF PROCEDURE: After informed consent was obtained from the patient, the patient was given preoperative antibiotics, and was transferred to the operating room. After successful induction of general anesthesia, pneumatic compression devices were placed on both lower extremities. An upper endoscopy was performed next. The oropharynx and esophagus appeared to be within normal limits. There was no significant diaphragmatic hernia present. The stomach was entered. Then after all fluid and air were suctioned and the stomach was fully decompressed, the scope was withdrawn and secured in the mid esophagus. The patient was then prepped and draped in the usual sterile manner, and abdominal access was established at the right upper quadrant with the Alyssa technique. A 12 mm blunt port was inserted, and the abdomen was insufflated with CO2 to a pressure of 15 mmHg. Under direct visualization, additional ports were placed, specifically two 5 mm Versi-step ports to the left upper quadrant, and a 5 mm Versi-Step port to the right upper quadrant. 1% lidocaine plain was used to infiltrate all port sites as well as all fascia defects. Following that, the patient was placed in a steep reverse Trendelenburg position. An additional 5 mm port was placed to the right flank for the Mediflex retractor that was used to retract the left lobe of the liver. The gastro-esophageal fat pad was opened with the ultrasonic device (Thdaviderbemert, Olympus) and the anterior esophagus and hiatus were exposed. The angle of His was opened with the ultrasonic device the fundus of the stomach from any diaphragmatic and splenic attachments. I then opened the gastrocolic ligament between the transverse colon and the greater curvature of the stomach with the ultrasonic device to enter the lesser sac and facilitate the ligation of the short gastric vessels. I started at a mid-point along the greater curvature and using the Thunderbeat, all short gastric vessels were divided all the way to the angle of His until the left haile was completely dissected at its entirety. I then divided the gastro-colic ligament distally to a distance of about 3-4 cm proximal to the pylorus. There were extensive congenital adhesions between the pancreas and posterior gastric wall. Those were lysed completely with the ultrasonic device. Adhesiolysis took approximately 45 min to complete. The stomach was then divided transversely with one Endo HAYDEE-45 purple, two HAYDEE-45 orange loads and three HAYDEE-60 articulating purple loads using the AgentrunIA stapler and My Visual Brief and Celebrations.[employer] loads. Every effort was made that the gastric sleeve had a tubular shape and an even caliber throughout. Once the sleeve resection was completed, the staple line of the gastric sleeve was reinforced with Hemoclips. The resected stomach was retrieved without difficulty from the Alyssa port. A gastropexy was then performed in order to prevent postoperative GERD and partial gastric volvulus. Several interrupted 2.0 Surgidac sutures were placed between the sleeve's staple line and the previously divided greater omentum and gastro-colic ligament using the Endo-Stitch device. ?An upper endoscopy was performed. There was no narrowing at the GE junction. The scope was easily advanced all the way to the pylorus which was clearly visualized. There was no narrowing anywhere and the sleeve's caliber was even throughout. The sleeve's staple line was inspected and there was no evidence of ischemia, bleeding or dehiscence. At that point the gastroscope was withdrawn from the patient?s mouth while we were decompressing the bowel and the stomach from any remaining air. I looked into the lesser sac to see how the sleeve was situating and it was situating well. There was no bleeding from the staple line, spleen, or short gastric vessels. The Mediflex retractor was removed, and the undersurface of the liver was inspected and there was no bleeding. The patient was placed in supine position. I closed the fascial defect of the 12 mm port site with a figure of eight #1 Polysorb suture. Then 30cc Ropivacaine plain with 10 mg of Dexamethasone were used to infiltrate the fascial closure as well as all skin incisions. At this point, the abdomen was deflated, all ports were removed under direct vision, and no bleeding was noted from any of the port sites. The skin incisions were irrigated with saline and were closed with 4-0 absorbable monofilament sutures. Steri-Strips and OpSites were used to cover all incisions. The patient was extubated and was transferred in stable condition to the recovery room for further care. I was present and performed all kennedy parts of the procedure. Mr. Maki was the sociology research assistant. There were no residents to assist with this case. Rob Marcos MD, PhD, FACS Surgeon: Ashutosh Marcos MD Anesthesia: GETA, local and other (TAP block) Was an Borematic Machine Operator used for this Procedure?: No Borematic Machine Operator: Sixto Maki Estimated blood loss (mL): 10 IV fluids (mL): 2,500 Urine output (mL): 0 (No Gonzales to record output) Pathology: other (Stomach) Condition: stable Disposition: PACU
--- NOTE | 2024-09-07 11:02 | P.PNGS_ITS ---
Subjective Subjective Date of Service: 09/08/24 Interval history: Feels well. Mild incisional pain. She is tolerating phase 1 bariatric diet Physical Exam 2 Vital Signs: Vital Signs: Last Vital Signs Temp 97.3 F 09/07/24 10:20 Pulse 62 09/07/24 10:35 Resp 16 09/07/24 10:35 BP 157/97 H 09/07/24 10:35 Pulse Ox 100 09/07/24 10:35 O2 Del Method Nasal Cannula wit h Capnography 09/07/24 10:35 O2 Flow Rate 2 09/07/24 10:35 BMI result Body Mass Index 43.8 GI: Inspection: Yes normal to inspection, Yes incision (clean, dry and intact) and Yes obesity Palpation (GI): Soft to palpation Extrem: Right lower extremity: normal to inspection (no calf tenderness) L eft lower extremity: normal to inspection (no calf tenderness) Objective Data Active Medications Albuterol/Ipratropium (Albuterol/Iprat 2.5/0.5mg 3 Ml Ampul.Neb) 3 ml INHALE ONCE PRN PRN Reason: Bronchospasm/wheezing Stop: 09/07/24 13:39 Fentanyl (Fentanyl Citrate/Pf 100 Mcg/2 Ml Vial) 25 mcg IVPUSH Q5M PRN PRN Reason: Pain, Moderate to Severe (Pain Scale 4-10) Stop: 09/07/24 13:39 Haloperidol Lactate (Haloperidol Lactate 5 Mg/Ml Vial) 1 mg IVPUSH ONCE PRN PRN Reason: intractable nausea Stop: 09/07/24 13:39 Hydromorphone HCl (Hydromorphone Hcl 0.5 Mg/0.5 Ml Syringe) 0.25 mg IVPUSH Q5M PRN PRN Reason: Pain, Moderate to Severe (Pain Stop: 09/07/24 13:39 Labs 09/08/24 05:36 09/08/24 05:36 Labs: Laboratory Results - last 24 hr 09/07/24 06:15 Urine Test NEGATIVE Procedures Date of Service Date of Service: 09/08/24 Progress Note: A&P Assessment and plan (1) Morbid obesity: Status: Acute Assessment and Plan: s/p laparoscopic sleeve gastrectomy, lysis of adhesions and gastropexy Doing well Will check am labs and if OK the patient will be discharged home (2) Hyperlipidemia: Status: Acute (3) ADHD: Status: Acute (4) S/P laparoscopic sleeve gastrectomy: Status: Acute (5) HTN (hypertension): Status: Acute (6) GERD (gastroesophageal reflux disease): Status: Acute (7) Steatosis, liver: Status: Acute (8) Congenital intra-abdominal adhesions: Status: Acute Time Spent With Patient Time: Total time managing care of this patient today ____ minutes. Quality Stroke Does the patient have a stroke diagnosis?: No VTE Prior VTE?: No VTE Risk Level:: Surgical - moderate VTE Device Contraindication: N/A - Device Ordered VTE Drug Contraindication: Treatment Not Indicated
[2024-09-07] MEDS: fentaNYL citrate/PF 100 MCG/2 ML VIAL 25 MCG IVPUSH ×2 (11:05→11:35)
[2024-09-07 11:10] LABS: Hematocrit 44.4 % (37.0-47.0); Hemoglobin 14.9 g/dl (12.0-16.0)
[2024-09-07] MEDS: Lactated Ringers 1,000 ML 100 ML IVCONT ×2 (12:53→22:13)
--- NOTE | 2024-09-07 13:13 | PHA.MEDREC ---
Addendum entered by Yash Navarro 09/07/24 13:34: reviewed Original Note: Pharmacy Consult ? Medication Reconciliation Pharmacy has reviewed the medication reconciliation done by nursing. Spoke to patient to confirm med list. Patient states she is no longer taking Miralax. All other medications she confirmed matched claims.
[2024-09-07] MEDS: ceFAZolin Sodium/Dextrose,Iso 2 GM/50 ML PIGGYBACK IV (13:19)
[2024-09-07 13:58] LABS: Anion Gap 14 (12-20); Blood Urea Nitrogen 16 mg/dL (9-16); Calcium 8.8 mg/dL (8.4-10.2); Carbon Dioxide 21 mmol/L (22-29); Chloride 106 mmol/L (96-108); Creatinine Clr Calc Pharmacy 99.5; Estimated Glomerular Filt Rate > 60; Glucose Random 126 mg/dL (60-115); Sodium 137 mmol/L (135-145)
[2024-09-07] MEDS: Acetaminophen 1,000 MG/100 ML PIGGYBACK 16.7 MG IV ×2 (14:57→20:13)
[2024-09-07] MEDS: Pantoprazole Sodium 40 MG/10 ML VIAL IVPUSH (20:34)
[2024-09-07] MEDS: 0.9 % Sodium Chloride Flush 3 ML SYRINGE IVFLUSH (20:34)
[2024-09-08] MEDS: Acetaminophen 1,000 MG/100 ML PIGGYBACK 16.7 MG IV (02:11)
[2024-09-08 02:36] VITALS: BP 137/73; PULSE 59; RESP 14; TEMP 36.6; O2SAT 95
[2024-09-08] MEDS: Pantoprazole Sodium 40 MG/10 ML VIAL IVPUSH (06:05)
[2024-09-08 06:39] LABS: MANUAL DIFF FLAG NO
[2024-09-08 07:00] LABS: Anion Gap 15 (12-20); Blood Urea Nitrogen 13 mg/dL (9-16); Calcium 9.3 mg/dL (8.4-10.2); Carbon Dioxide 22 mmol/L (22-29); Chloride 106 mmol/L (96-108); Estimated Glomerular Filt Rate > 60; Glucose Random 108 mg/dL (60-115); Potassium 4.2 mmol/L (3.3-5.1); Sodium 139 mmol/L (135-145)
[2024-09-08 07:06] VITALS: BP 170/79; PULSE 50; RESP 16; TEMP 36.3; O2SAT 98
[2024-09-08 07:08] LABS: Basophils Percent Auto 0.1 % (0-2); Hemoglobin 13.2 g/dl (12.0-16.0); Imm Gran Abs Auto 0.07 X10*3/uL (0.00-0.03); Imm Gran Pct Auto 0.7 % (0.0-0.4); Lymphocytes Absolute Auto 0.7 X10*3/uL (1.2-4.9); Mean Corpuscular HGB Conc 33.8 g/dl (31.0-35.0); Mean Corpuscular Hemoglobin 31.3 pg (27.0-33.0); Mean Corpuscular Volume 92.4 fL (80.0-98.0); Monocytes Absolute Auto 0.7 X10*3/uL (0.1-1.2); Monocytes Percent Auto 7.4 % (2-11); Neutrophils Absolute Auto 8.4 x10*3/uL (2.0-8.3); Neutrophils Percent Auto 84.8 % (45-73); Platelet Count 355 X10*3/uL (160-400); Red Blood Count 4.22 X10*6/uL (4.20-5.50); Red Cell Distribution Width 12.2 % (11.0-16.0)
[2024-09-08 07:24] VITALS: BP 157/73
--- NOTE | 2024-09-08 09:16 | MHC.CM.PN ---
PT LIVES AT HOME WITH HER AND IS INDEPENDENT WITH CARE PER EMR HCP AND PCP ON FILE PT DISCHARGED HOME TODAY WITH NO SERVICES VIA PRIVATE TRANSPORT
--- NOTE | 2024-09-08 10:59 | HO.POSTANES ---
Post Anesthesia Evaluation Post Anesthesia Evaluation Date of Service: 09/07/24 Vital Signs: Vital Signs Temp Pulse Resp BP Pulse Ox O2 Del Method 09/08/24 07:39 Room Air 09/08/24 07:24 157/73 H 09/08/24 07:06 97.3 F 50 16 170/79 H 98 09/08/24 02:36 97.8 F 59 14 137/73 95 Room Air 09/07/24 23:16 97.1 F 63 14 137/61 96 Room Air Anesthesia: General Endotracheal-GETA Mental Status: Awake Pain Control: Satisfactory Nausea/Vomiting: None Hydration: Adequate Anesthesia-Related Issues: No Anes. Related Issues
== END 2024-09-08 09:05 | disposition home or self-care (01) | DRG 620 ==
LOC: HO.SSSA 10:23 → HO.S3 10:48
PROVIDERS: Nurse Practitioner; Physician Assistant Surgical; Admitting Provider Surgery; PCP Family Medicine; Visit Provider Surgery
PROC: 0DB64Z3 Excision of Stomach, Percutaneous Endoscopic Approach, Vertical (ICD-10-PCS; CPT 43845; principal; 2024-09-07 07:30)
DX: E66.01 Morbid (severe) obesity due to excess calories (principal); Q43.3 Congenital malformations of intestinal fixation; Z68.41 Body mass index [BMI] 40.0-44.9, adult; E78.5 Hyperlipidemia, unspecified; F90.9 Attention-deficit hyperactivity disorder, unspecified type; K21.9 Gastro-esophageal reflux disease without esophagitis; I10 Essential (primary) hypertension; K76.0 Fatty (change of) liver, not elsewhere classified; G47.00 Insomnia, unspecified; Z87.891 Personal history of nicotine dependence; Z79.899 Other long term (current) drug therapy
CPT/HCPCS: 36415; 80048; 80053; 80061; 81025; 83036; 83525; 84443; 85014; 85018; 85025; 85610; 85730; 86140; 86850; 86900; 86901; 88304; 88305; 88307; 88342; A4649; C9145; J0131; J0690; J1100; J1171; J2003; J2250; J2405; J2470; J2704; J2795; J3010; J7120

== ENCOUNTER → 2024-09-07 06:08 | Outpatient (BNV) | payer OTHER, SELFPAY | PROVIDERS: Admitting Provider Surgery; PCP Family Medicine; Visit Provider Surgery | DX: E66.01 Morbid (severe) obesity due to excess calories (principal) | CPT/HCPCS: 43659; 43775; 99024; 99499 ==

== ENCOUNTER 2024-09-14 10:36 | Outpatient (AMB) | payer OTHER, SELFPAY ==
--- NOTE | 2024-09-14 10:51 | A.OFFVIS_ITS ---
VS Expanded 09/14/24 11:01 BP 134/85 Blood Pressure Location Rt brachial Blood Pressure Position Sitting Pulse 70 Pulse Source Pulse Oximeter Temp 97.8 F Temperature Source Temporal Artery Scan Pulse Oximetry 98 Oxygen Delivery Method Room Air Height 5 ft 3 in Weight 240 lb 3.2 oz BMI 42.5 Body Fat % 44.7 Body Fat Mass 107.4 Fat Free Mass 132.8 Visceral Fat Rating 13.0 Body Water % 39.5 Body Water Mass 94.8 Muscle Mass/Score 126.2 Basal Metabolic Rate/Score 1,864 Intake Visit Reasons: (OV) PO LSG 09/07/24 Allergies sulfamethoxazole [From BACTRIM] Allergy (Unknown, Verified 09/14/24 11:00) TOLD HER NOT TO TAKE BACTRIM trimethoprim [From BACTRIM] Allergy (Unknown, Verified 09/14/24 11:00) TOLD HER NOT TO TAKE BACTRIM PFSH Medical History (Updated 09/10/24 @ 00:03 by Gamal Taveras) Smoker Breast cancer screening by mammogram Screening for cervical cancer Adult general medical exam History of COVID-19 Elevated cholesterol HTN (hypertension) Insomnia Surgical History (Updated 09/14/24 @ 11:01 by Julianna Stokes CMA) S/P laparoscopic sleeve gastrectomy History of esophagogastroduodenoscopy (EGD) Hx of colonoscopy History of anal fistulotomy History of removal of cyst H/O wisdom tooth extraction History of section Family History Father Diabetes mellitus Mother HTN (hypertension) Stroke Brother Substance abuse Sister Substance abuse Son No problems noted. Daughter No problems noted. Social History Household Members: None Housing: House Are you a primary medical care manager to a significant other at home: No Do you presently have visiting nurse or other home services: No Patient Tobacco Use Status: Former Tobacco user Cigarette Packs Per Day: 0.5 Years Smoked: 20 e-Cigarette/Vaping Use: Currently Using (Daily use.) Second Hand Smoke Exposure: No service: No Current occupational status: employed Current occupational exposures/hazards: No Cognitive needs: No Hearing needs: No Vision needs: No
--- NOTE | 2024-09-14 10:51 | A.OFFVIS_ITS ---
VS Expanded 09/14/24 11:01 BP 134/85 Blood Pressure Location Rt brachial Blood Pressure Position Sitting Pulse 70 Pulse Source Pulse Oximeter Temp 97.8 F Temperature Source Temporal Artery Scan Pulse Oximetry 98 Oxygen Delivery Method Room Air Height 5 ft 3 in Weight 240 lb 3.2 oz BMI 42.5 Body Fat % 44.7 Body Fat Mass 107.4 Fat Free Mass 132.8 Visceral Fat Rating 13.0 Body Water % 39.5 Body Water Mass 94.8 Muscle Mass/Score 126.2 Basal Metabolic Rate/Score 1,864 Intake Visit Reasons: (OV) PO LSG 09/07/24 Allergies sulfamethoxazole [From BACTRIM] Allergy (Unknown, Verified 09/14/24 11:00) TOLD HER NOT TO TAKE BACTRIM trimethoprim [From BACTRIM] Allergy (Unknown, Verified 09/14/24 11:00) TOLD HER NOT TO TAKE BACTRIM HPI Comments Details: Patient is a pleasant 44-year-old female who returns to the office today in follow-up. She is 7 days post sleeve gastrectomy performed on 09/07/2024. Tolerating 3 celebrate 4 in 1 shakes with 1 scoop each and approximately 50 oz of fluids. She has moved her bowels and offers no significant complaints at today's visit. FORMERLY [facility], [facility] Medical History (Updated 09/10/24 @ 00:03 by Gamal Taveras) Smoker Breast cancer screening by mammogram Screening for cervical cancer Adult general medical exam History of COVID-19 Elevated cholesterol HTN (hypertension) Insomnia Surgical History (Updated 09/14/24 @ 11:01 by Julianna Stokes CMA) S/P laparoscopic sleeve gastrectomy History of esophagogastroduodenoscopy (EGD) Hx of colonoscopy History of anal fistulotomy History of removal of cyst H/O wisdom tooth extraction History of section Family History Father Diabetes mellitus Mother HTN (hypertension) Stroke Brother Substance abuse Sister Substance abuse Son No problems noted. Daughter No problems noted. Social History Household Members: None Housing: House Are you a primary wound care coordinator to a significant other at home: No Do you presently have visiting nurse or other home services: No Patient Tobacco Use Status: Former Tobacco user Cigarette Packs Per Day: 0.5 Years Smoked: 20 e-Cigarette/Vaping Use: Currently Using (Daily use.) Second Hand Smoke Exposure: No service: No Current occupational status: employed Current occupational exposures/hazards: No Cognitive needs: No Hearing needs: No Vision needs: No Physical Exam GI Inspection: Yes incision (Mild bruising otherwise clean, dry, intact.) Assessment & Plan Assessment & Plan (1) S/P laparoscopic sleeve gastrectomy: Code(s): Z98.84 - Bariatric surgery status Category: Surgical Plan: POD 7 s/p LSG on 09/07/[address] Marcos Weight loss prior to surgery was 23.8 pounds or 8.5 % TBWL. Original weight on 06/22/2024 was 279.8 pounds and op weight was 256 pounds. Be sure to text Dr Marcos exactly 1 week after surgery your weight from your home scale so he can adjust your meal plan. Continue meal plan until f/u naheed Henson in 2 weeks May shower, no submersion in bath for another week Continue abdominal binder with activity and exercise for the next 2 weeks. Exercise prior to surgery was outdoor walking and stationary bike and may resume No abdominal exercises for 6 weeks post operatively Will be emailed link to post op video for review Reminded of the pace of drinking, 2 mL per minute, 1 oz/15 min.
[2024-09-14 11:01] VITALS: BP 134/85; PULSE 70; TEMP 36.6; O2SAT 98; BMI 42.5
== END 2024-09-14 11:24 | disposition home or self-care (01) ==
PROVIDERS: PCP Family Medicine; Visit Provider Physician Assistant Surgical
DX: Z98.84 Bariatric surgery status (principal)
CPT/HCPCS: 99024

== ENCOUNTER → 2024-09-14 10:36 | Outpatient (BNVA) | payer OTHER, SELFPAY | PROVIDERS: PCP Family Medicine; Visit Provider Physician Assistant Surgical ==

== ENCOUNTER → 2024-09-16 14:03 | Outpatient (BNVA) | payer OTHER, SELFPAY | PROVIDERS: PCP Family Medicine; Visit Provider Family Medicine ==

== ENCOUNTER → 2024-10-03 13:22 | Outpatient (AMB) | payer OTHER, SELFPAY ==
--- NOTE | 2024-10-03 13:00 | A.OFFWM_ITS ---
Intake Intake Visit Reasons: VIDEO PO LSG 09/07/24 Allergies sulfamethoxazole [From BACTRIM] Allergy (Unknown, Verified 09/14/24 11:00) TOLD HER NOT TO TAKE BACTRIM trimethoprim [From BACTRIM] Allergy (Unknown, Verified 09/14/24 11:00) TOLD HER NOT TO TAKE BACTRIM PFSH Medical History (Updated 09/10/24 @ 00:03 by Gamal Taveras) Smoker Breast cancer screening by mammogram Screening for cervical cancer Adult general medical exam History of COVID-19 Elevated cholesterol HTN (hypertension) Insomnia Surgical History (Updated 09/14/24 @ 11:01 by Julianna Stokes CMA) S/P laparoscopic sleeve gastrectomy History of esophagogastroduodenoscopy (EGD) Hx of colonoscopy History of anal fistulotomy History of removal of cyst H/O wisdom tooth extraction History of section Family History Father Diabetes mellitus Mother HTN (hypertension) Stroke Brother Substance abuse Sister Substance abuse Son No problems noted. Daughter No problems noted. Social History Household Members: None Housing: House Are you a primary medicare compliance auditor to a significant other at home: No Do you presently have visiting nurse or other home services: No Patient Tobacco Use Status: Former Tobacco user Cigarette Packs Per Day: 0.5 Years Smoked: 20 e-Cigarette/Vaping Use: Currently Using (Daily use.) Second Hand Smoke Exposure: No service: No Current occupational status: employed Current occupational exposures/hazards: No Cognitive needs: No Hearing needs: No Vision needs: No Behavioral Health Assessment Weight Management Therapy Therapy Notes Details Subjective: The patient reports that she has been doing well and her recovery has been progressing positively. She has been losing about 3 pounds per week, which aligns with the expectations set by her healthcare provider. The patient states that she is utilizing her support network when needed and has not been experiencing any challenges with hunger, cravings or food thoughts. Objective: The patient presents for a post-operative follow-up after undergoing bariatric surgery on September 07, 2024. We discussed her overall functioning and conducted a screening for any emotional or behavioral concerns, particularly regarding her mood. We addressed her concerns about her interactions with her provider, offering constructive feedback to validate her feelings. I encouraged her to maintain open communication with her provider and to adhere to the provided instructions for successful weight loss. The PHQ-9 depression screening was administered. Assessment/Response: * Mental status: Within normal limits, indicating that the patient?s functioning is not impaired. * Risk reported/identified: None reported/identified. The PHQ-9 scores indicated none or low symptoms. When discussing symptoms, some were related to normal life events, and no active signs of depression were identified. The patient was very open, engaged, cooperative, and responsive to interventions. Questionnaires PHQ-9 Over the last 2 weeks, how often have you been bothered by any of the following problems? 1. Little interest or pleasure in doing things: not at all 2. Feeling down, depressed, or hopeless: not at all 3. Trouble falling or staying asleep, or sleeping too much: several days 4. Feeling tired or having little energy: not at all 5. Poor appetite or overeating: not at all 6. Feeling bad about yourself - or that you are a failure or have let yourself or your family down: not at all 7. Trouble concentrating on things, such as reading the newspaper or watching television: not at all 8. Moving or speaking so slowly that other people could have noticed. Or the opposite - being so fidgety or restless that you have been moving around a lot more than usual: not at all 9. Thoughts that you would be better off or of hurting yourself in some way: not at all Total score: 1 Depression Screening Interpretation: Negative Depression Screening Done: Yes 68384 - PHQ-9 Billing: Yes Source: Developed by Drs. Сергей Garcia, Anais Nicole, Hany Cross and colleagues, with an educational amira from [employer]. 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 PT will continue meeting with her therapist and is aware of behavioral health support available in this program if needed. She will not require any further appointments with this provider at this time. Next appointment: none. Telehealth Telehealth [facility]health [facility]: [facility] Location of provider rendering services: other Location of patient: address on file Patient Identification confirmed using: Name, : Yes Telehealth method: voice only Patient verbally consented to treatment: Yes Patient verbally consented to billing insurance company: Yes Patient informed of any privacy concerns related to visit: Yes Minutes spent on Phone/Video with Pt.: 50 Coding Level of Care Code Established Pt Tele Psytx 45 mins ([id number]) Patient Type Established Diagnoses Trauma and stressor-related disorder F43.9 Additional Codes PHQ-9 - 45501 - PHQ-9 Billing: Yes ([id number]) Time Spent (min) 50
== END ==
PROVIDERS: PCP Family Medicine; Visit Provider Counselor Mental Health
DX: F43.9 Reaction to severe stress, unspecified (principal)
CPT/HCPCS: 90834

== ENCOUNTER → 2024-10-03 13:22 | Outpatient (BNVA) | payer OTHER, SELFPAY | PROVIDERS: PCP Family Medicine; Visit Provider Counselor Mental Health ==

== ENCOUNTER 2024-10-06 14:14 | Outpatient (AMB) | payer OTHER, SELFPAY ==
--- NOTE | 2024-10-06 14:19 | A.OFFVIS_ITS ---
VS Expanded 10/06/24 14:26 BP 129/70 Blood Pressure Location Rt brachial Blood Pressure Position Sitting Pulse 102 H Pulse Source Pulse Oximeter Temp 98.2 F Temperature Source Temporal Artery Scan Pulse Oximetry 98 Oxygen Delivery Method Room Air Height 5 ft 3 in Weight 228 lb 9.6 oz BMI 40.5 Body Fat % 42.3 Body Fat Mass 96.6 Fat Free Mass 131.8 Visceral Fat Rating 12.0 Body Water % 41.2 Body Water Mass 94.2 Muscle Mass/Score 125.2 Basal Metabolic Rate/Score 1,834 Intake Visit Reasons: (OV) PO LSG 09/07/24 Allergies sulfamethoxazole [From BACTRIM] Allergy (Unknown, Verified 10/06/24 14:21) TOLD HER NOT TO TAKE BACTRIM trimethoprim [From BACTRIM] Allergy (Unknown, Verified 10/06/24 14:) TOLD HER NOT TO TAKE BACTRIM HPI Comments Details: This?a?44?yo female who is s/p LSG without hiatal hernia repair on?09/07/2024. Presents for 1 month post op visit. Weight today is 228.6 pounds, with a BMI of 40.5. There has been a 51.2 pound weight loss,(initial weight 279.8 pounds) since starting the program on 06/22/2024 reflecting a 18.2 % total body weight loss and a weight loss of 27.4 pounds since surgery (operative weight 256 pounds) reflecting a 10.7 % TBWL since surgery. No complaints of nausea, emesis, abdominal pain or reflux. Reports infrequent but normal bowel movements every 2 days and uses stool softeners regularly. She states she is doing ok with the meal plans Present meal plan includes: Ascent powder shakes (25 gm protein per scoop) 1 scoop 1 scoop quest bar 1/2 scoop Drinking 42-50 oz water ? Exercise routine includes: 400 dipak per day walking outside [facility] Medical History (Updated 09/10/24 @ 00:03 by Gamal Taveras) Smoker Breast cancer screening by mammogram Screening for cervical cancer Adult general medical exam History of COVID-19 Elevated cholesterol HTN (hypertension) Insomnia Surgical History S/P laparoscopic sleeve gastrectomy History of esophagogastroduodenoscopy (EGD) Hx of colonoscopy History of anal fistulotomy History of removal of cyst H/O wisdom tooth extraction History of section Family History Father Diabetes mellitus Mother HTN (hypertension) Stroke Brother Substance abuse Sister Substance abuse Son No problems noted. Daughter No problems noted. Social History Household Members: None Housing: House Are you a primary foster care social worker to a significant other at home: No Do you presently have visiting nurse or other home services: No Patient Tobacco Use Status: Former Tobacco user Cigarette Packs Per Day: 0.5 Years Smoked: 20 e-Cigarette/Vaping Use: Currently Using (Daily use.) Second Hand Smoke Exposure: No service: No Current occupational status: employed Current occupational exposures/hazards: No Cognitive needs: No Hearing needs: No Vision needs: No Physical Exam Vital Signs: Last Vital Signs Temp 98.2 F 10/06/24 14:26 Pulse 102 H 10/06/24 14:26 BP 129/70 10/06/24 14:26 Pulse Ox 98 10/06/24 14:26 Oxygen Delivery Method Room Air 10/06/24 14:26 BMI result Body Mass Index 40.5 Const General: healthy appearing and no acute distress Resp Effort & Inspection: normal respiratory effort Auscultation: clear to auscultation bilaterally Cardio Rate: regular rate Rhythm: regular rhythm GI Auscultation: normal bowel sounds Extrem General: Yes normal to inspection Assessment & Plan Assessment & Plan (1) S/P laparoscopic sleeve gastrectomy: Code(s): Z98.84 - Bariatric surgery status Category: Surgical Plan: Overall doing well. We will continue current meal plan. Encouraged to have her bar slowly over a 3 hour period, cutting the bar into 6 pieces. Return to the office in approximately 3 weeks
[2024-10-06 14:26] VITALS: BP 129/70; PULSE 102; TEMP 36.8; O2SAT 98; BMI 40.5
== END 2024-10-06 14:49 | disposition home or self-care (01) ==
PROVIDERS: PCP Family Medicine; Visit Provider Physician Assistant Surgical
DX: Z98.84 Bariatric surgery status (principal)
CPT/HCPCS: 99024

== ENCOUNTER → 2024-10-06 14:14 | Outpatient (BNVA) | payer OTHER, SELFPAY | PROVIDERS: PCP Family Medicine; Visit Provider Physician Assistant Surgical ==

== ENCOUNTER 2024-10-07 12:57 | Outpatient (AMB) | payer OTHER, SELFPAY ==
--- NOTE | 2024-10-07 13:05 | MHC.PC.OV ---
Vital Signs 10/07/24 13:11 Height 5 ft 3 in Weight 232 lb 4 oz BMI 41.1 BP 130/64 Blood Pressure Location Rt brachial Position Sitting Respiration 16 Pulse 67 Pulse Source Pulse Oximeter Temp 99.5 F Temp Source Oral Pulse Oximetry (%) 98 Oxygen Delivery Method Room Air Intake Visit Reasons: CPE with f/u labs and health maint. 30 mins Allergies sulfamethoxazole [From BACTRIM] Allergy (Unknown, Verified 10/07/24 13:10) TOLD HER NOT TO TAKE BACTRIM trimethoprim [From BACTRIM] Allergy (Unknown, Verified 10/07/24 13:10) TOLD HER NOT TO TAKE BACTRIM Medication List - Last Reconciled 10/07/24 by Jon Messer MD atorvastatin 20 mg PO BEDTIME 30 days melatonin 3 mg PO BEDTIME PRN methylphenidate HCl 20 mg PO DAILY ondansetron 4 mg PO Q12H PRN pantoprazole 40 mg PO DAILY sucralfate 10 mL PO BID Tobacco use date assessed: 12/10/23 Dental Screening Dental Screen Date: 06/03/24 HPI CPE with f/u labs and health maint. 30 mins HPI Details 44 y/o female presents for a CPE with f/u labs and health maintenance. No recent CPE-labs to review. Has complaints of an ear discomfort. Has complaints of congestion. Up to date on her mammogram. [facility] Medical History (Updated 10/07/24 @ 13:42 by Angelo Warren) Breast cancer screening by mammogram Adult general medical exam Smoker Screening for cervical cancer History of COVID-19 Elevated cholesterol HTN (hypertension) Insomnia Surgical History S/P laparoscopic sleeve gastrectomy History of esophagogastroduodenoscopy (EGD) Hx of colonoscopy History of anal fistulotomy History of removal of cyst H/O wisdom tooth extraction History of section Family History Father Diabetes mellitus Mother HTN (hypertension) Stroke Brother Substance abuse Sister Substance abuse Son No problems noted. Daughter No problems noted. Social History Household Members: None Housing: House Are you a primary home health care provider to a significant other at home: No Do you presently have visiting nurse or other home services: No Patient Tobacco Use Status: Former Tobacco user Cigarette Packs Per Day: 0.5 Years Smoked: 20 e-Cigarette/Vaping Use: Currently Using (Daily use.) Second Hand Smoke Exposure: No service: No Current occupational status: employed Current occupational exposures/hazards: No Cognitive needs: No Hearing needs: No Vision needs: No Questionnaire PHQ-9 Over the last 2 weeks, how often have you been bothered by any of the following problems? 1. Little interest or pleasure in doing things: not at all 2. Feeling down, depressed, or hopeless: not at all 3. Trouble falling or staying asleep, or sleeping too much: nearly every day 4. Feeling tired or having little energy: not at all 5. Poor appetite or overeating: not at all 6. Feeling bad about yourself - or that you are a failure or have let yourself or your family down: not at all 7. Trouble concentrating on things, such as reading the newspaper or watching television: not at all 8. Moving or speaking so slowly that other people could have noticed. Or the opposite - being so fidgety or restless that you have been moving around a lot more than usual: not at all 9. Thoughts that you would be better off or of hurting yourself in some way: not at all Total score: 3 Depression Screening Interpretation: Negative Depression Screening Done: Yes 24765 - PHQ-9 Billing: Yes Source: Developed by Drs. Сергей Garcia, Anais Nicole, Hany Cross and colleagues, with an educational amira from [employer]. Thrive Questionnaire Date Thrive assessed: 10/07/24 I am a: Patient What is your living situation today?: I have a steady place to live Within the past 12 months, did the food you bought not last and you didn't have the money to get more?: Never true Within the past 12 months, did you worry whether your food would run out before you got money to buy more?: Never true Do you have trouble paying for medicines?: No Do you have trouble getting transportation to medical appointments?: No Do you have trouble paying your heating and electricity bill?: No Do you have trouble taking care of your child, family member or friend?: No Do you have trouble with day-to-day activities such as bathing, preparing meals, shopping, managing finances, etc.?: No Are you currently unemployed and looking for a job?: No Are you interested in more education?: No Please select the resources that you would like help with: None Currently or been in a relationship where the following occur: No concerns reported THRIVE Score: 0 AUDIT C Alcohol Use Questionnaire (AUDIT-C) 1. How often do you have a drink containing alcohol?: Never 3. How often do you have six or more drinks on one occasion?: Never Total Score: 0 YING-7 AMB Questionnaire YING-7 Date YING - 7 assessed: 10/07/24 Feeling nervous, anxious, or on edge: 0 = Not at all Not being able to stop or control worryin = Not at all Worrying too much about different things: 0 = Not at all Trouble relaxin = Not at all Being so restless that it is hard to sit still: 0 = Not at all Becoming easily annoyed or irritable: 0 = Not at all Feeling afraid as if something awful might happen: 0 = Not at all Total YING-7 score (0-4 normal; 5-9 mild; 10-14 moderate; 15-21 severe): 0 Source: Developed by Drs. Сергей Garcia, Anais Nicole, Hany Cross and colleagues, with an educational amira from [employer]. YING-7 Assessment Billing YING-7 Assessment Tool: YING-7 Assessment 68249 Review of Systems Const Denies chills, Denies fatigue, Denies fever(s), Denies headache(s) and Denies weakness Eyes Denies change in vision ENT Denies dizziness, Denies headache(s), Denies hearing loss, Reports nasal congestion, Denies sinus pain, Denies sinus pressure and Denies sore throat Card Denies chest pain, Denies lightheadedness, Denies dyspnea and Denies other (palpitations) Resp Denies cough, Denies dyspnea and Denies wheezing GI Denies abdominal pain, Denies melena, Denies hematochezia, Denies change in bowel habits, Denies dyspepsia and Denies nausea Denies hematuria and Denies dysuria Musc Denies abnormal gait, Denies myalgias, Denies arthralgias, Denies numbness and Denies tingling Skin/Breast Denies rash, Denies unusual bruising and Denies wounds Neuro Denies abnormal gait, Denies dizziness, Denies headache(s), Denies memory loss, Denies numbness, Denies Sensory deficit (Neuro), Denies tingling and Denies weakness Psych Denies anxiety, Denies depression and Denies memory loss Endo Denies cold intolerance, Denies fatigue, Denies heat intolerance, Denies polydipsia and Denies polyuria Riccardo/Lymph Denies easy bleeding and Denies easy bruising Aller/Immun Denies wheezing Physical exam (Primary Care) Vital Signs: Last Vital Signs Temp 99.5 F 10/07/24 13:11 Pulse 67 10/07/24 13:11 Resp 16 10/07/24 13:11 BP 130/64 10/07/24 13:11 Pulse Ox 98 10/07/24 13:11 Oxygen Delivery Method Room Air 10/07/24 13:11 BMI result Body Mass Index 41.1 Tobacco/Smoking Status: Tobacco use Status Tobacco use date assessed 12/10/23 10/07/24 13:16 Patient Tobacco Use Status Former Tobacco user 10/07/24 13:16 e-Cigarette/Vaping Use Currently Using (Daily use.) 10/07/24 13:16 PHQ-9: PHQ-9 Score PHQ-9: Total score 3 10/07/24 13:24 Depression Screening Interpretation: Negative Thrive Assessment: Date of Thrive Assessment Date Thrive assessed 10/07/24 10/07/24 13:16 Currently or been in a relationship where the following occur: No concerns reported Const General: no acute distress, well developed, alert and awake Nutritional Appearance: well nourished Orientation/consciousness: patient oriented x3 HENMT Head: Yes normocephalic and Yes atraumatic Ears: hearing grossly normal bilaterally and TM's normal bilaterally General nose exam: Normal external nose present and Normal nares present Mouth: Normal oral and palatal mucosa present and moist mucous membranes Teeth and gingiva: dentition normal Throat: Yes posterior oropharynx normal Eyes General: appearance normal, both eyes and all related structures Pupils: Equal, round and reactive pupils present and Pupil accommodation reflex normal EOM: EOMs intact bilaterally Neck Neck: Yes normal visual inspection, Yes no lymphadenopathy and Yes trachea midline Thyroid: Thyroid normal Carotids: no bruits Lymphatic: no lymphadenopathy noted Chest Chest palpation & inspection: normal inspection of the chest Resp Effort & Inspection: normal respiratory effort Auscultation: clear to auscultation bilaterally Cardio Rate: regular rate Rhythm: regular rhythm Heart sounds: S1 normal heart sound present, S2 normal heart sound present, no gallops, no murmurs and no rubs Bruits: no abdominal aortic bruits and no carotid bruits GI Palpation (GI): No Abdominal aortic bruit present, Soft to palpation, nontender, No hepatosplenomegaly present and No Rebound tenderness present Auscultation: normal bowel sounds General: Yes no CVA tenderness Back/Spine/Pelvis Back: no CVA tenderness Cervical Spine: cervical ROM normal and No Cervical spine tenderness Thoracic/Lumbar Spine: thoraco-lumbar ROM normal, No pain with thoraco-lumbar ROM, No thoracic spinal tenderness and No lumbar spinal tenderness Skin Lesions: no lesions Rashes: no rashes Trauma: no lacerations or abrasions Wounds: no wounds Nails: normal Neuro General: patient oriented x3 Cranial nerves: Yes Equal, round and reactive pupils present Cognition (Neuro): normal cognition Gait exam (Neuro): Normal gait present Motor exam (neuro): 5/5 motor strength present throughout Sensory Exam: No Sensory deficit (Neuro) Deep tendon reflexes (DTR's): Right patellar reflex intensity grade: 2+ and Left patellar reflex intensity grade: 2+ Extrem General: Yes normal to inspection and No edema Psych Appearance: grossly normal Affect: normal affect Attitude: cooperative Thought process: Normal thought process present Coding Level of Care Code Est Pt Prev Care 40-64y(48084) Diagnoses Adult general medical exam Z00.00 Ear discomfort H92.09 Morbid obesity E66.01 Nasal congestion R09.81 Hyperlipidemia E78.5 Screening for colon cancer Z12.11 Breast cancer screening by mammogram Z12.31 Additional Codes YING-7 Assessment Billing - YING-7 Assessment Tool: YING-7 Assessment 94888 ([id number]) PHQ-9 - 82555 - PHQ-9 Billing: Yes ([id number]) Assessment & Plan Assessment & Plan (1) Adult general medical exam: Code(s): Z00.00 - Encounter for general adult medical examination without abnormal findings Category: Medical Plan: 44-year-old?female?presents?for?complete?physical?exam (2) Ear discomfort: Code(s): H92.09 - Otalgia, unspecified ear Category: Medical Plan: Left?ear?discomfort TM?shows?small?slit-like?scar Likely?mild?perforation?which?is?already?healing Should?spontaneously?resolve (3) Morbid obesity: Code(s): E66.01 - Morbid (severe) obesity due to excess calories Category: Medical Plan: Now?s/p?gastrectomy?sleeve 1?month?ago Patient?has?lost?about?50?lb?since?May Continue?to?follow-up?with?Bariatric?and?continue?diet?and?exercise (4) Nasal congestion: Code(s): R09.81 - Nasal congestion Category: Medical Plan: Improving?but?sent?nasal?swab?to?test?for?COVID/flu/RSV (5) Hyperlipidemia: Code(s): E78.5 - Hyperlipidemia, unspecified Category: Medical Plan: Lipids?are?well?controlled?on?atorvastatin?20?mg?daily She?continues?to?lose?weight Will?recheck?in?a?few?months - she?would?like?to?discontinue?this?at?some?point (6) Screening for colon cancer: Code(s): Z12.11 - Encounter for screening for malignant neoplasm of colon Category: Medical Plan: Patient?is?44.??Due?for?1st?right?screening?colonoscopy Referred?to?GI (7) Breast cancer screening by mammogram: Code(s): Z12.31 - Encounter for screening mammogram for malignant neoplasm of breast Category: Medical Plan: Mammogram?in?April?was?negative?for?malignancy Continue?annual?screening Orders: Orders Lipid Panel Today Z00.00 - Encounter for general adult medical examination without abnormal findings Comprehensive Met. Panel Today E78.5 - Hyperlipidemia, unspecified Referrals Gastroenterology Referral Z12.11 - Encounter for screening for malignant neoplasm of colon
[2024-10-07 13:11] VITALS: BP 130/64; PULSE 67; RESP 16; TEMP 37.5; O2SAT 98; BMI 41.1
== END 2024-10-07 13:54 | disposition home or self-care (01) ==
PROVIDERS: PCP Family Medicine; Visit Provider Family Medicine
DX: Z00.00 Encounter for general adult medical examination without abnormal findings (principal); H92.02 Otalgia, left ear; E66.01 Morbid (severe) obesity due to excess calories; Z68.41 Body mass index [BMI] 40.0-44.9, adult; R09.81 Nasal congestion; E78.5 Hyperlipidemia, unspecified; Z12.11 Encounter for screening for malignant neoplasm of colon; Z12.31 Encounter for screening mammogram for malignant neoplasm of breast

== ENCOUNTER 2024-10-07 12:57 | Outpatient (REF) | payer OTHER, SELFPAY ==
[2024-10-07 19:03] LABS: Influenza A PCR NEGATIVE (Negative); Influenza B PCR NEGATIVE (Negative); Resp Syncy Virus RNA Qual PCR NEGATIVE (Negative); SARS COV2 PCR INHOUSE NEGATIVE (Negative)
== END 2024-10-07 12:58 | disposition home or self-care (01) ==
LOC: HO.LNP 12:57
PROVIDERS: PCP Family Medicine; Visit Provider Family Medicine
DX: Z00.01 Encounter for general adult medical examination with abnormal findings (principal); H92.02 Otalgia, left ear; R09.81 Nasal congestion; E66.01 Morbid (severe) obesity due to excess calories; E78.5 Hyperlipidemia, unspecified; Z79.899 Other long term (current) drug therapy; Z98.84 Bariatric surgery status
CPT/HCPCS: 0241U; 96127

== ENCOUNTER 2024-10-31 10:06 | Outpatient (AMB) | payer OTHER, SELFPAY ==
--- NOTE | 2024-10-31 10:26 | MHC.OFFWIV ---
Intake Vital Signs 10/31/24 10:28 Height 5 ft 3 in Weight 222 lb BMI 39.3 BP 114/68 Blood Pressure Location Rt brachial Position Sitting Respiration 13 Pulse 70 Pulse Source Pulse Oximeter Temp 98.6 F Temp Source Oral Pulse Oximetry (%) 99 Oxygen Delivery Method Simple Mask Intake Visit Reasons: EST/COLD SYMPTOMS Intake Note: Patient complaining of deep coughing, and tired x 1month Patient Tobacco Use Status: Former Tobacco user Allergies sulfamethoxazole [From BACTRIM] Allergy (Unknown, Verified 10/31/24 10:42) TOLD HER NOT TO TAKE BACTRIM trimethoprim [From BACTRIM] Allergy (Unknown, Verified 10/31/24 10:42) TOLD HER NOT TO TAKE BACTRIM Medication List - Last Reconciled 10/31/24 by Marifer Agrawal, [employer]- atorvastatin 20 mg PO BEDTIME 30 days melatonin 3 mg PO BEDTIME PRN methylphenidate HCl 20 mg PO DAILY 30 days ondansetron 4 mg PO Q12H PRN pantoprazole 40 mg PO DAILY sucralfate 10 mL PO BID Do you need a note to return to daycare/school/sports/work: No HPI HPI Comments History of Present Illness Details History of Present Illness The patient is a 44-year-old female presenting with a persistent cough and fatigue. The symptoms began around Thursday, following an initial cold before which resolved without complications. The subsequent illness, described as a chest cold, manifested initially with a change in her voice and became characterized by a nightly and morning cough producing phlegm. The patient reports significant fatigue, inconsistent with her baseline level of activity. She has a history of walking pneumonia during her teenage years and expresses concern about a potential recurrence but reports no fever, asthma, or COPD. There is no history of tobacco use, and her interactions with children are minimal, although she occasionally watches a baby. The patient has used children's Tylenol and cough drops to manage her symptoms, with some relief but ongoing issues. On self-assessment, she observed nasal congestion without significant nasal discharge or sinus pressure, although occasional watering of the eyes and nose occurs, especially during physical activity. Surgical history includes bariatric surgery, which limits her use of ibuprofen. Exam Awake alert NAD Sclera and conjunctiva clear bilat Nares w mucoid d/c bilat, turbinates pale and edematous bilat, no sinus tenderness with palpation bilat TM intact + congestion bilat MMM, pharynx + PND RRR LS CTAB occassional dry cough Plan 1. Cough: The patient is suspected to have a sinus-related postnasal drip contributing to the reactive cough. She will be started on liquid penicillin given her bariatric surgery, administration with food twice daily for seven days. 2. Fatigue: The fatigue is considered possibly secondary to the persistent cough and postnasal drip. Addressing the postnasal causes should concurrently improve her energy levels. 3. Nasal Congestion: A nasal steroid spray, Flonase, will be used to reduce nasal swelling, one spray per nostril twice daily. It can be continued as long as needed, with no strict stop date. Patient was informed and verbally consented to the use of an ambient scribe for clinic note documentation during this visit. ON LICENSE OF [facility] Medical History (Updated 10/31/24 @ 10:47 by Marifer Agrawal, [facility]) Breast cancer screening by mammogram Adult general medical exam Smoker Screening for cervical cancer History of COVID-19 Elevated cholesterol HTN (hypertension) Insomnia Surgical History S/P laparoscopic sleeve gastrectomy History of esophagogastroduodenoscopy (EGD) Hx of colonoscopy History of anal fistulotomy History of removal of cyst H/O wisdom tooth extraction History of section Family History Father Diabetes mellitus Mother HTN (hypertension) Stroke Brother Substance abuse Sister Substance abuse Son No problems noted. Daughter No problems noted. Social History Household Members: None Housing: House Are you a primary health care facilities inspector to a significant other at home: No Do you presently have visiting nurse or other home services: No Patient Tobacco Use Status: Former Tobacco user Cigarette Packs Per Day: 0.5 Years Smoked: 20 e-Cigarette/Vaping Use: Currently Using (Daily use.) Second Hand Smoke Exposure: No service: No Current occupational status: employed Current occupational exposures/hazards: No Cognitive needs: No Hearing needs: No Vision needs: No Physical Exam Vital Signs: Last Vital Signs Temp 98.6 F 10/31/24 10:28 Pulse 70 10/31/24 10:28 Resp 13 10/31/24 10:28 BP 114/68 10/31/24 10:28 Pulse Ox 99 10/31/24 10:28 Oxygen Delivery Method Simple Mask 10/31/24 10:28 BMI result Body Mass Index 39.3 Assessment & Plan Assessment & Plan (1) Acute bacterial sinusitis: Code(s): J01.90 - Acute sinusitis, unspecified; B96.89 - Other specified bacterial agents as the cause of diseases classified elsewhere Plan . Medications: New fluticasone propionate 50 mcg/actuation administer into each nostril 1 spray intranasal BID 16 grams 0RF amoxicillin 875 mg (17.5 mL) PO BID 7 days 245 mL 0RF Coding Level of Care Code Est Pt Level 3 (45203) Diagnoses Acute bacterial sinusitis J01.90; B96.89
[2024-10-31 10:28] VITALS: BP 114/68; PULSE 70; RESP 13; TEMP 37; O2SAT 99; BMI 39.3
== END 2024-10-31 10:51 | disposition home or self-care (01) ==
LOC: HO.HMCWIW 10:07
PROVIDERS: PCP Family Medicine; Visit Provider Nurse Practitioner Family
DX: J01.90 Acute sinusitis, unspecified (principal); B96.89 Other specified bacterial agents as the cause of diseases classified elsewhere

== ENCOUNTER → 2024-10-31 10:06 | Outpatient (BNVA) | payer OTHER, SELFPAY | PROVIDERS: PCP Family Medicine; Visit Provider Nurse Practitioner Family ==

== ENCOUNTER 2024-11-03 14:00 | Outpatient (AMB) | payer OTHER, SELFPAY ==
[2024-11-03 10:24] VITALS: BMI 38.6
--- NOTE | 2024-11-03 10:24 | MHC.OFFVISWM ---
VS Expanded 11/03/24 10:24 Height 5 ft 3 in Weight 218 lb 2 oz BMI 38.6 Body Fat % 50.4 Fat Free Mass 108.2 Visceral Fat Rating 20 Body Water % 34 Muscle Mass/Score 101.8 Basal Metabolic Rate/Score 1,439 Intake Visit Reasons: (TV) PO LSG 09/07/24 Pediatric Dermatologist Required: No Allergies sulfamethoxazole [From BACTRIM] Allergy (Unknown, Verified 10/31/24 10:42) TOLD HER NOT TO TAKE BACTRIM trimethoprim [From BACTRIM] Allergy (Unknown, Verified 10/31/24 10:42) TOLD HER NOT TO TAKE BACTRIM Medication List - Last Reconciled 11/03/24 by KVNG Villalobos amoxicillin 875 mg (17.5 mL) PO BID 7 days atorvastatin 20 mg PO BEDTIME 30 days fluticasone propionate 50 mcg/actuation 1 spray intranasal BID melatonin 3 mg PO BEDTIME PRN methylphenidate HCl 20 mg PO DAILY 30 days pantoprazole 40 mg PO DAILY sucralfate 10 mL PO BID HPI Comments Details: This?a?44?yo female who is s/p LSG without hiatal hernia repair on?09/07/2024. Presents for 2 month post op visit. Weight today is 218.2 pounds, with a BMI of 38.6. There has been a 61.6 pound weight loss,(initial weight 279.8 pounds) since starting the program on 06/22/2024 reflecting a 22 % total body weight loss and a weight loss of 37.8 pounds since surgery (operative weight 256 pounds) reflecting a 14.7 % TBWL since surgery. No complaints of nausea, emesis, abdominal pain or reflux. Reports infrequent but normal bowel movements every 2 days and uses stool softeners regularly. Taking bariatric MVI. She states she has been sick with nasal congestion and cough over the last couple of weeks and she was recently Rx abx on thursday. States she would like suggestions on what to eat once weekly if possible. She has tried up to 2 oz of tuna, cottage cheese, chicken, squash. Wants to be able to add in a meal if she wishes Present meal plan includes: Ascent powder shakes (25 gm protein per scoop) 1 scoop mixed with almond milk 1 scoop quest bar 1/2 scoop Drinking 40-50 oz water ? Exercise routine includes: 400 dipak per day walking outside, 6-7 days per week [facility] Medical History (Updated 10/31/24 @ 10:47 by Marifer Agrawal, [facility]) Breast cancer screening by mammogram Adult general medical exam Smoker Screening for cervical cancer History of COVID-19 Elevated cholesterol HTN (hypertension) Insomnia Surgical History S/P laparoscopic sleeve gastrectomy History of esophagogastroduodenoscopy (EGD) Hx of colonoscopy History of anal fistulotomy History of removal of cyst H/O wisdom tooth extraction History of section Family History Father Diabetes mellitus Mother HTN (hypertension) Stroke Brother Substance abuse Sister Substance abuse Son No problems noted. Daughter No problems noted. Social History Household Members: None Housing: House Are you a primary certified social workers in health care to a significant other at home: No Do you presently have visiting nurse or other home services: No Patient Tobacco Use Status: Former Tobacco user Cigarette Packs Per Day: 0.5 Years Smoked: 20 e-Cigarette/Vaping Use: Currently Using (Daily use.) Second Hand Smoke Exposure: No service: No Current occupational status: employed Current occupational exposures/hazards: No Cognitive needs: No Hearing needs: No Vision needs: No Assessment & Plan Assessment & Plan (1) S/P laparoscopic sleeve gastrectomy: Code(s): Z98.84 - Bariatric surgery status Category: Surgical Plan: Wants to change meal plan slightly. Ascent powder shakes (25 gm protein per scoop) 1 scoop mixed with almond milk, 9-11 am 1 scoop, 12-2 pm icelandic yogurt, 2-5 pm 1/2 scoop or 4 forks protein and 2 forks cooked veg, 6-8 pm continue exercise, she was encouraged to get home stationary bike for variety and to have in case of bad weather outside Encouraged to continue text her weight weekly and with any questions or concerns. Return to clinic 1 month
== END 2024-11-03 14:41 | disposition home or self-care (01) ==
LOC: HO.HBS 14:04
PROVIDERS: PCP Family Medicine; Visit Provider Physician Assistant Surgical
DX: Z98.84 Bariatric surgery status (principal)
CPT/HCPCS: 99024

== ENCOUNTER → 2024-11-03 14:00 | Outpatient (BNVA) | payer OTHER, SELFPAY | PROVIDERS: PCP Family Medicine; Visit Provider Physician Assistant Surgical ==

== ENCOUNTER 2024-12-08 13:41 | Outpatient (AMB) | payer OTHER, SELFPAY ==
--- NOTE | 2024-12-08 08:10 | MHC.OFFVISWM ---
VS Expanded 12/08/24 08:11 Height 5 ft 3 in Weight 203 lb 8 oz BMI 36.0 Body Fat % 46.5 Fat Free Mass 109 Visceral Fat Rating 18 Body Water % 36.7 Muscle Mass/Score 102.6 Basal Metabolic Rate/Score 1,435 Intake Visit Reasons: (TV) PO LSG 09/07/24 Allergies sulfamethoxazole [From BACTRIM] Allergy (Unknown, Verified 10/31/24 10:42) TOLD HER NOT TO TAKE BACTRIM trimethoprim [From BACTRIM] Allergy (Unknown, Verified 10/31/24 10:42) TOLD HER NOT TO TAKE BACTRIM HPI Comments Details: This?a?44?yo female who is s/p LSG without hiatal hernia repair on?09/07/2024. Presents for 3 month post op visit. Weight today is 203.8 pounds, with a BMI of 36. There has been a 76 pound weight loss,(initial weight 279.8 pounds) since starting the program on 06/22/2024 reflecting a 27.1 % total body weight loss and a weight loss of 52.2 pounds since surgery (operative weight 256 pounds) reflecting a 20.3 % TBWL since surgery. No complaints of nausea, emesis, abdominal pain or reflux. Reports infrequent but normal bowel movements every 2 days and uses stool softeners regularly. Taking bariatric MVI. She states she has been not eating right or exercising. She states that this was due to PMS. States that this is now improving and she is returning to exercise. She did buy a recumbent bike and is using this on a daily basis except for last week when she only used it twice. She does not wish to change her meal plan overall. Present meal plan includes: Ascent powder shakes (25 gm protein per scoop) 1 scoop mixed with almond milk, 9-11 am 1 scoop, 12-2 pm saudi arabian yogurt, 2-5 pm 1/2 scoop or 4 forks protein and 2 forks cooked veg, 6-8 pm Drinking 40-50 oz water ? Exercise routine includes: bought recumbent bike. 1 hr, 300 dipak per day 400 dipak per day walking outside, 6-7 days per week [facility] Medical History (Updated 10/31/24 @ 10:47 by Marifer Agrawal, [facility]) Breast cancer screening by mammogram Adult general medical exam Smoker Screening for cervical cancer History of COVID-19 Elevated cholesterol HTN (hypertension) Insomnia Surgical History S/P laparoscopic sleeve gastrectomy History of esophagogastroduodenoscopy (EGD) Hx of colonoscopy History of anal fistulotomy History of removal of cyst H/O wisdom tooth extraction History of section Family History Father Diabetes mellitus Mother HTN (hypertension) Stroke Brother Substance abuse Sister Substance abuse Son No problems noted. Daughter No problems noted. Social History Household Members: None Housing: House Are you a primary healthcare associate to a significant other at home: No Do you presently have visiting nurse or other home services: No Patient Tobacco Use Status: Former Tobacco user Cigarette Packs Per Day: 0.5 Years Smoked: 20 e-Cigarette/Vaping Use: Currently Using (Daily use.) Second Hand Smoke Exposure: No service: No Current occupational status: employed Current occupational exposures/hazards: No Cognitive needs: No Hearing needs: No Vision needs: No Telehealth Telehealth Telehealth Platform: Telephone Location of provider rendering services: practice address Location of patient: other Patient Identification confirmed using: Name, : Yes Telehealth method: voice only Patient verbally consented to treatment: Yes Patient verbally consented to billing insurance company: Yes Patient informed of any privacy concerns related to visit: Yes Minutes spent on Phone/Video with Pt.: 12 Assessment & Plan Assessment & Plan (1) S/P laparoscopic sleeve gastrectomy: Code(s): Z98.84 - Bariatric surgery status Category: Surgical Plan: Ascent powder shakes (25 gm protein per scoop) 1 scoop mixed with almond milk, 9-11 am 1/2 scoop, 12-2 pm saudi arabian yogurt, 2-5 pm 1/2 scoop or 4 forks protein and 2 forks cooked veg, 6-8 pm Encouraged to return to exercise regularly. She was encouraged to text weight weekly and call with any questions or concerns. Return to clinic 1 month.
[2024-12-08 08:11] VITALS: BMI 36.0
== END 2024-12-08 13:47 | disposition home or self-care (01) ==
LOC: HO.HBS 13:41
PROVIDERS: PCP Family Medicine; Visit Provider Physician Assistant Surgical
DX: E66.812 Obesity, class 2 (principal); Z68.36 Body mass index [BMI] 36.0-36.9, adult; Z90.3 Acquired absence of stomach [part of]; Z98.84 Bariatric surgery status
CPT/HCPCS: 98012

== ENCOUNTER 2025-01-16 09:49 | Outpatient (AMB) | payer OTHER, SELFPAY ==
--- NOTE | 2025-01-16 09:08 | MHC.OFFVISWM ---
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 Presents for 4 month post op visit. Weight today is 192.6 pounds, with a BMI of 34.1. There has been a 87.2 pound weight loss,(initial weight 279.8 pounds) since starting the program on 06/22/2024 reflecting a 31.1 % total body weight loss and a weight loss of 63.4 pounds since surgery (operative weight 256 pounds) reflecting a 24.7 % TBWL since surgery. No complaints of nausea, emesis, abdominal pain or reflux. Reports infrequent but normal bowel movements every 2 days and uses stool softeners regularly. Taking centum womens MVI. She states she is doing well. She feels on track. Present meal plan includes: Wang powder shakes (25 gm protein per scoop) 1 scoop mixed with almond milk, 9-11 am 1/2 scoop, 12-2 pm sao tomean yogurt, 2-5 pm 1/2 scoop or 4 forks protein and 2 forks cooked veg, 6-8 pm Drinking 50 oz water ? Exercise routine includes: bought recumbent bike. 450 calories if unable to do wingman Wingman cross fit 5-6 days per week 400 dipak per day walking outside, 6-7 days per week PFSH Medical History (Updated 10/31/24 @ 10:47 by Marifer Agrawal, [facility]) Breast cancer screening by mammogram Adult general medical exam Smoker Screening for cervical cancer History of COVID-19 Elevated cholesterol HTN (hypertension) Insomnia Surgical History S/P laparoscopic sleeve gastrectomy History of esophagogastroduodenoscopy (EGD) Hx of colonoscopy History of anal fistulotomy History of removal of cyst H/O wisdom tooth extraction History of section Family History Father Diabetes mellitus Mother HTN (hypertension) Stroke Brother Substance abuse Sister Substance abuse Son No problems noted. Daughter No problems noted. Social History Household Members: None Housing: House Are you a primary acute care assistant to a significant other at home: No Do you presently have visiting nurse or other home services: No Patient Tobacco Use Status: Former Tobacco user Cigarette Packs Per Day: 0.5 Years Smoked: 20 e-Cigarette/Vaping Use: Currently Using (Daily use.) Second Hand Smoke Exposure: No service: No Current occupational status: employed Current occupational exposures/hazards: No Cognitive needs: No Hearing needs: No Vision needs: No Telehealth Telehealth Telehealth Platform: Telephone Location of provider rendering services: practice address Location of patient: address on file Patient Identification confirmed using: Name, : Yes Telehealth method: voice only Patient verbally consented to treatment: Yes Patient verbally consented to billing insurance company: Yes Patient informed of any privacy concerns related to visit: Yes Minutes spent on Phone/Video with Pt.: 15 Assessment & Plan Assessment & Plan (1) S/P laparoscopic sleeve gastrectomy: Code(s): Z98.84 - Bariatric surgery status Category: Surgical Plan: Patient is making good progress. She does state that she is scheduled to get labs done with her primary care physician and we will therefore add labs so she does not need to overlap. She will continue with her meal plan as she is satisfied with this and continues to lose weight. Continue to encourage 5-6 days per week at the gym. She has burning approximately 500-600 calories per session. Encouraged to send weight weekly and text with any questions or concerns. Orders: Orders IRON PROFILE Today E78.5 - Hyperlipidemia, unspecified, I10 - Essential (primary) hypertension, Z98.84 - Bariatric surgery status TSH reflex Free T4 Today E78.5 - Hyperlipidemia, unspecified, I10 - Essential (primary) hypertension, Z98.84 - Bariatric surgery status Insulin Today E78.5 - Hyperlipidemia, unspecified, I10 - Essential (primary) hypertension, Z98.84 - Bariatric surgery status Hemoglobin A1c Today E78.5 - Hyperlipidemia, unspecified, I10 - Essential (primary) hypertension, Z98.84 - Bariatric surgery status Complete Blood Count Auto Diff Today E78.5 - Hyperlipidemia, unspecified, I10 - Essential (primary) hypertension, Z98.84 - Bariatric surgery status Vitamin B12 and Folate Today E78.5 - Hyperlipidemia, unspecified, I10 - Essential (primary) hypertension, Z98.84 - Bariatric surgery status Zinc Today E78.5 - Hyperlipidemia, unspecified, I10 - Essential (primary) hypertension, Z98.84 - Bariatric surgery status C Reactive Protein Today E78.5 - Hyperlipidemia, unspecified, I10 - Essential (primary) hypertension, Z98.84 - Bariatric surgery status Vitamin B1 Today E78.5 - Hyperlipidemia, unspecified, I10 - Essential (primary) hypertension, Z98.84 - Bariatric surgery status Vitamin A Today E78.5 - Hyperlipidemia, unspecified, I10 - Essential (primary) hypertension, Z98.84 - Bariatric surgery status Ferritin Today E78.5 - Hyperlipidemia, unspecified, I10 - Essential (primary) hypertension, Z98.84 - Bariatric surgery status Vitamin D 25-OH Total Today E78.5 - Hyperlipidemia, unspecified, I10 - Essential (primary) hypertension, Z98.84 - Bariatric surgery status
[2025-01-16 09:10] VITALS: BMI 34.1
== END 2025-01-16 09:53 | disposition home or self-care (01) ==
LOC: HO.HBS 09:49
PROVIDERS: PCP Family Medicine; Visit Provider Physician Assistant Surgical
DX: E66.811 Obesity, class 1 (principal); Z68.34 Body mass index [BMI] 34.0-34.9, adult; Z90.3 Acquired absence of stomach [part of]; Z98.84 Bariatric surgery status
CPT/HCPCS: 99213

== ENCOUNTER 2025-02-13 10:52 | Outpatient (REF) | payer OTHER, SELFPAY ==
[2025-02-13 11:22] LABS: MANUAL DIFF FLAG NO
[2025-02-13 11:51] LABS: Basophils Absolute Auto 0.1 X10*3/uL (0.0-0.2); Basophils Percent Auto 1.1 % (0-2); Eosinophils Absolute Auto 0.2 X10*3/uL (0.0-0.4); Eosinophils Percent Auto 2.8 % (0-4); Hematocrit 38.6 % (37.0-47.0); Hemoglobin 12.5 g/dl (12.0-16.0); Imm Gran Abs Auto 0.02 X10*3/uL (0.00-0.03); Imm Gran Pct Auto 0.4 % (0.0-0.4); Lymphocytes Absolute Auto 1.5 X10*3/uL (1.2-4.9); Lymphocytes Percent Auto 26.7 % (20-40); Mean Corpuscular HGB Conc 32.4 g/dl (31.0-35.0); Mean Corpuscular Hemoglobin 31.3 pg (27.0-33.0); Mean Corpuscular Volume 96.5 fL (80.0-98.0); Mean Platelet Volume 10.4 fL (9.4-12.3); Monocytes Absolute Auto 0.4 X10*3/uL (0.1-1.2); Monocytes Percent Auto 7.4 % (2-11); Neutrophils Absolute Auto 3.4 x10*3/uL (2.0-8.3); Neutrophils Percent Auto 61.6 % (45-73); Platelet Count 318 X10*3/uL (160-400); Red Cell Distribution Width 12.6 % (11.0-16.0); White Blood Count 5.4 X10*3/uL (4.8-10.8)
[2025-02-13 12:14] LABS: Estimated Average Glucose 97 mg/dL
[2025-02-13 12:47] LABS: C Reactive Protein 0.33 mg/dL (< or = 0.50); Iron 90 mcg/dL (30-160); Percent Iron Saturation 42 % (15-50); Total Iron Binding Capacity 216 mcg/dL (228-428); Unsaturated Iron Binding 126 ug/dL
[2025-02-13 12:58] LABS: Ferritin 87 ng/mL (10-250); TSH reflex Free T4 0.89 uIU/mL (0.32-4.0); Vitamin D 25-OH Total 42.2 ng/mL (>30)
[2025-02-13 13:04] LABS: Folate 15.9 ng/mL (> or = 4.0); Vitamin B12 367 pg/mL (200-900)
[2025-02-13 13:08] LABS: Insulin 5 uU/mL (2-29)
[2025-02-16 05:23] LABS: Zinc 73 mcg/dL (60-130)
[2025-02-16 17:14] LABS: Vitamin A 35 mcg/dL (38-98)
[2025-02-20 13:58] LABS: Vitamin B1 <6 nmol/L (8-30)
== END 2025-02-13 10:53 | disposition home or self-care (01) ==
LOC: HO.LAB 10:52
PROVIDERS: Absent Provider Family Medicine; PCP Family Medicine; Visit Provider Physician Assistant Surgical
DX: E78.5 Hyperlipidemia, unspecified (principal); I10 Essential (primary) hypertension; Z98.84 Bariatric surgery status; Z13.1 Encounter for screening for diabetes mellitus
CPT/HCPCS: 36415; 82306; 82607; 82728; 82746; 83036; 83525; 83540; 84425; 84443; 84590; 84630; 85025; 86140

== ENCOUNTER 2025-03-07 15:08 | Outpatient (REF) | payer OTHER, SELFPAY ==
[2025-03-07 17:47] LABS: Alanine Aminotransferase 22 U/L (0-31); Albumin Level 4.3 g/dL (3.5-5.0); Alkaline Phosphatase 64 U/L (39-117); Anion Gap 12 (12-20); Aspartate Amino Transferase 21 U/L (5-31); Bilirubin Total 0.5 mg/dL (0.0-1.0); Blood Urea Nitrogen 24 mg/dL (9-16); Calcium 9.6 mg/dL (8.4-10.2); Carbon Dioxide 25 mmol/L (22-29); Chloride 110 mmol/L (96-108); Cholesterol 208 mg/dL (<200); Estimated Glomerular Filt Rate > 60; Glucose Random 85 mg/dL (60-115); HDL Cholesterol 47 mg/dL (>40); LDL Cholesterol Calculated 144 mg/dL (<100); Potassium 4.2 mmol/L (3.3-5.1); Sodium 143 mmol/L (135-145); Triglycerides 87 mg/dL (<150)
== END 2025-03-07 15:09 | disposition home or self-care (01) ==
LOC: HO.LAB 15:08
PROVIDERS: PCP Family Medicine; Visit Provider Nurse Practitioner
DX: Z00.00 Encounter for general adult medical examination without abnormal findings (principal); E78.5 Hyperlipidemia, unspecified; Z01.818 Encounter for other preprocedural examination
CPT/HCPCS: 36415; 80053; 80061

== ENCOUNTER 2025-03-07 15:08 | Outpatient (AMB) | payer OTHER, SELFPAY ==
--- NOTE | 2025-03-07 15:11 | MHC.OFFVIS ---
Vital Signs 03/07/25 15:18 Height 5 ft 3 in Weight 179 lb 14.355 oz BMI 31.9 BP 104/79 Blood Pressure Location Lt brachial Position Sitting Pulse 77 Intake Visit Reasons: [place] screening Intake Note: New patient in office today for colonoscopy screening. CC: Patient denies having any GI symptoms today. Compliance Attorney Required: No Accompanied by: Self / Same As Patient Allergies sulfamethoxazole [From BACTRIM] Allergy (Unknown, Verified 03/07/25 15:23) TOLD HER NOT TO TAKE BACTRIM trimethoprim [From BACTRIM] Allergy (Unknown, Verified 03/07/25 15:23) TOLD HER NOT TO TAKE BACTRIM HPI HPI [place] screening: Details: 44-year-old female here for preprocedural meeting to discuss a screening colonoscopy. She is referred by Marifer Agrawal. PMX Morbid obesity Hypertension High cholesterol Congenital intra-abdominal adhesions Liver steatosis ADHD Insomnia ? Smoker - quit * SURGICAL HISTORY Sleeve gastrectomy Esophagogastroduodenoscopy Colonoscopy Anal fistulotomy Danube teeth extraction section Ganglion cyst wrist removal * ALLERGIES SULFA * [employer] LABS: No Chem panel recent in our system TODAY'S VISIT She has had 2 prior colonoscopies for reasons she can't exactly remember over 20 years ago. She denies any upper GI or bowel problems. She woke up once during anesthesia 20 years ago during and EGD but no other problems. She denies any cardiac or respiratory problems. No ID problems. There is no known FHX of crc or cancer. [facility] Medical History (Updated 03/07/25 @ 16:03 by NUHA Vasquez) Congenital intra-abdominal adhesions Morbid obesity Essential hypertension Morbid obesity with BMI of 45.0-49.9, adult Adult general medical exam Screening for colon cancer Breast cancer screening by mammogram Nasal congestion Ear discomfort Acute bacterial sinusitis Smoker Screening for cervical cancer History of COVID-19 Elevated cholesterol HTN (hypertension) Insomnia Surgical History (Updated 03/06/25 @ 15:03 by NUHA Vasquez) S/P laparoscopic sleeve gastrectomy History of esophagogastroduodenoscopy (EGD) Hx of colonoscopy History of anal fistulotomy History of removal of cyst H/O wisdom tooth extraction History of section Family History Father Diabetes mellitus Mother HTN (hypertension) Stroke Brother Substance abuse Sister Substance abuse Son No problems noted. Daughter No problems noted. Social History Household Members: None Housing: House Are you a primary md do resident urgent care to a significant other at home: No Do you presently have visiting nurse or other home services: No Patient Tobacco Use Status: Former Tobacco user Cigarette Packs Per Day: 0.5 Years Smoked: 20 e-Cigarette/Vaping Use: Currently Using (Daily use.) Second Hand Smoke Exposure: No service: No Current occupational status: employed Current occupational exposures/hazards: No Cognitive needs: No Hearing needs: No Vision needs: No Review of Systems Const Denies fatigue, Denies fever(s), Denies night sweats, Denies poor appetite and Reports weight loss (Sleeve gastrectomy intentional dieting) Eyes Details: Glasses Reports requires corrective lenses ENT Reports Normal hearing present, Denies dental pain, Denies dysphagia, Denies hearing loss, Denies mouth pain, Denies odynophagia, Denies throat swelling, Denies tongue swelling and Reports other (Dentition adequate) Card Reports no additional complaints Resp Reports no additional complaints GI Details: Denies abdominal pain, Denies melena, Denies bloating, Denies hematochezia, Denies constipation, Denies GI cramping, Denies dysphagia, Denies excessive flatus, Denies early satiety, Reports heartburn, Denies diarrhea, Denies nausea, Denies odynophagia, Denies vomiting and Denies hematemesis Skin/Breast Denies pruritus, Denies lesions, Denies rash and Denies jaundice Neuro Reports Normal hearing present and Denies Abnormal speech present Endo Denies fatigue Aller/Immun Denies throat swelling and Denies tongue swelling Physical Exam Const General: cooperative, no acute distress, well developed and well groomed Nutritional Appearance: well nourished and obese Orientation/consciousness: oriented to person, oriented to place and oriented to time Limitations: No language barrier HEENT Head: Yes normocephalic and Yes atraumatic Eyes General: appearance normal, both eyes and all related structures Pupils: Equal, round and reactive pupils present Neck Neck: Yes normal visual inspection and Yes no lymphadenopathy Thyroid: Thyroid normal Resp Effort & Inspection: normal respiratory effort and able to speak in complete sentences Auscultation: clear to auscultation bilaterally Cardio Rate: regular rate Rhythm: regular rhythm Heart sounds: Normal, physiologic split S2 sound present Peripheral pulses: radial pulses present and posterior tibial pulses present GI Inspection: No distended, No Abdominal panniculus present, Yes obesity, Yes scar and Yes striae Palpation (GI): Soft to palpation, nontender, no guarding, not rigid and No hepatosplenomegaly present Percussion: Yes normal to percussion Auscultation: normal bowel sounds Rectal Exam - Female: deferred Abdomen image: 1. Surgical scars 2. Skin General skin exam: no rashes or lesions noted, turgor normal, skin not dry, no jaundice, No spider nevi and no striae Rashes: no rashes Nails: normal Neuro General: oriented to person, oriented to place and oriented to time Cranial nerves: Yes Equal, round and reactive pupils present and Yes Normal hearing present Speech: No Abnormal speech present Extrem General: Yes normal to inspection, No clubbing, No cyanosis and No edema Psych Appearance: grossly normal and well kempt Mental Status: mental status grossly normal Speech and movement: Normal speech and movement present Affect: normal affect Attitude: cooperative Thought process: Normal thought process present and not confabulating Thought content: Normal thought content present Insight: Good insight present (Psych) Judgement: Good judgement present (Psych) Assessment & Plan Assessment & Plan (1) Pre-op examination: Code(s): Z01.818 - Encounter for other preprocedural examination Category: Medical (2) Obesity (BMI 30.0-34.9): Code(s): E66.811 - Obesity, class 1 Category: Medical Plan She has had 2 prior colonoscopies for reasons she can't exactly remember over 20 years ago. She denies any upper GI or bowel problems. She woke up once during anesthesia 20 years ago during and EGD but no other problems. She denies any cardiac or respiratory problems. No ID problems. There is no known FHX of crc or cancer. Coding Level of Care Code New Pt Level 3 (21712) Diagnoses Pre-op examination Z01.818 Obesity (BMI 30.0-34.9) E66.813
[2025-03-07 15:18] VITALS: BP 104/79; PULSE 77; BMI 31.9
== END 2025-03-07 18:39 ==
PROVIDERS: PCP Family Medicine; Visit Provider Nurse Practitioner
DX: Z01.818 Encounter for other preprocedural examination (principal); Z12.11 Encounter for screening for malignant neoplasm of colon; E66.811 Obesity, class 1
CPT/HCPCS: 99202

== ENCOUNTER 2025-03-31 15:00 | Outpatient (AMB) | payer OTHER, SELFPAY ==
--- NOTE | 2025-03-31 15:04 | MHC.OFFVISWM ---
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: No Allergies sulfamethoxazole [From BACTRIM] Allergy (Unknown, Verified 03/07/25 15:23) TOLD HER NOT TO TAKE BACTRIM trimethoprim [From BACTRIM] Allergy (Unknown, Verified 03/07/25 15:23) TOLD HER NOT TO TAKE BACTRIM Medication List - Last Reconciled 03/31/25 by KVNG Villalobos bisacodyl (Dulcolax (bisacodyl)) 10 mg (2 x 5 mg) PO BEDTIME 2 days cholecalciferol (vitamin D3) 50 mcg PO DAILY melatonin 3 mg PO BEDTIME PRN methylphenidate HCl 20 mg PO DAILY 30 days thiamine HCl (vitamin B1) 100 mg PO DAILY vitamin A palmitate 10,000 units PO DAILY HPI Comments Details: This?a?44?yo female who is s/p LSG without hiatal hernia repair on?09/07/2024. Presents for 7 month post op visit. Weight today is 171.8 pounds, with a BMI of 30.4. There has been a 108 pound weight loss,(initial weight 279.8 pounds) since starting the program on 06/22/2024 reflecting a 38.5 % total body weight loss and a weight loss of 84.2 pounds since surgery (operative weight 256 pounds) reflecting a 32.8 % TBWL since surgery. No complaints of nausea, emesis, abdominal pain or reflux. Reports infrequent but normal bowel movements every 2 days and uses stool softeners regularly. Taking centum womens MVI. She states she is doing well. She feels great. Having protein bar at night 4 of 7 nights if she misses the midday protein. Present meal plan includes: Wang powder shakes (25 gm protein per scoop) 1 scoop mixed with almond milk, 9-11 am 1/2 scoop, 12-2 pm or estonian yogurt or 10 gm protein bar meal 4 forks protein and 3 forks cooked veg, 6-8 pm Drinking 64 oz water ? Exercise routine includes: bought recumbent bike. 350-400 calories if raining Wingman cross fit 5-6 days per week 400 dipak per day walking outside, 6-7 days per week, 4 mi [facility] Medical History (Updated 03/07/25 @ 16:03 by NUHA Vasquez) Congenital intra-abdominal adhesions Morbid obesity Essential hypertension Morbid obesity with BMI of 45.0-49.9, adult Adult general medical exam Screening for colon cancer Breast cancer screening by mammogram Nasal congestion Ear discomfort Acute bacterial sinusitis Smoker Screening for cervical cancer History of COVID-19 Elevated cholesterol HTN (hypertension) Insomnia Surgical History (Updated 03/31/25 @ 15:28 by KVNG Villalobos) S/P laparoscopic sleeve gastrectomy History of esophagogastroduodenoscopy (EGD) Hx of colonoscopy History of anal fistulotomy History of removal of cyst H/O wisdom tooth extraction History of section Family History Father Diabetes mellitus Mother HTN (hypertension) Stroke Brother Substance abuse Sister Substance abuse Son No problems noted. Daughter No problems noted. Social History Household Members: None Housing: House Are you a primary palliative care specialist to a significant other at home: No Do you presently have visiting nurse or other home services: No Patient Tobacco Use Status: Former Tobacco user Cigarette Packs Per Day: 0.5 Years Smoked: 20 e-Cigarette/Vaping Use: Currently Using (Daily use.) Second Hand Smoke Exposure: No service: No Current occupational status: employed Current occupational exposures/hazards: No Cognitive needs: No Hearing needs: No Vision needs: No Telehealth Telehealth Telehealth Platform: Telephone Location of provider rendering services: practice address Location of patient: address on file Patient Identification confirmed using: Name, : Yes Telehealth method: voice only Patient verbally consented to treatment: Yes Patient verbally consented to billing insurance company: Yes Patient informed of any privacy concerns related to visit: Yes Minutes spent on Phone/Video with Pt.: 15 Assessment & Plan Assessment & Plan (1) S/P laparoscopic sleeve gastrectomy: Code(s): Z98.84 - Bariatric surgery status Category: Surgical Plan: Patient has had several episodes of hypovolemia and near-syncope. She is now acutely aware that this happens when she does not drink enough fluids or if she is over exerting herself. She has additionally noticed she would have her protein bar at night if she misses her mid day meal. She is going to try to follow the program more consistently. Additionally, she will continue to exercise as she has been doing. We will have her follow-up in the office in approximately 2 months. Of note, she is scheduled to have a colonoscopy and was prescribed a gal of bowel prep. Discussed with GI another solution for bowel prep as the volume is too much post sleeve gastrectomy.
[2025-03-31 15:05] VITALS: BMI 30.4
== END 2025-03-31 15:37 | disposition home or self-care (01) ==
LOC: HO.HBS 15:20
PROVIDERS: PCP Family Medicine; Visit Provider Physician Assistant Surgical
DX: E66.9 Obesity, unspecified (principal); Z68.30 Body mass index [BMI] 30.0-30.9, adult; Z98.84 Bariatric surgery status
CPT/HCPCS: 99213

== ENCOUNTER → 2025-04-24 16:30 | Outpatient (AMB) | payer OTHER, SELFPAY ==
--- NOTE | 2025-04-24 16:57 | MHC.PC.OV ---
Vital Signs 04/24/25 17:01 Height 5 ft 3 in Weight 173 lb 6 oz BMI 30.7 BP 108/64 Blood Pressure Location Lt brachial Position Sitting Respiration 16 Pulse 82 Pulse Source Pulse Oximeter Temp 98.2 F Temp Source Oral Pulse Oximetry (%) 98 Oxygen Delivery Method Room Air Intake Visit Reasons: f/u HLD, reschedule Intake Note: patient is scheduled for HLD labs patient has no concern. Allergies sulfamethoxazole [From BACTRIM] Allergy (Unknown, Verified 04/24/25 16:59) TOLD HER NOT TO TAKE BACTRIM trimethoprim [From BACTRIM] Allergy (Unknown, Verified 04/24/25 16:59) TOLD HER NOT TO TAKE BACTRIM Tobacco use date assessed: 04/24/25 Dental Screening Dental Screen Date: 04/24/25 Did you have a dental visit in the last 12 months?: No Did you have a dental problem in the last 6 months where you did not have access to dental care?: No Was dental information given to patient?: No HPI f/u HLD, reschedule HPI Details 45 y/o female presents to f/u HLD. S/p laparoscopic sleeve. Labs drawn 03/07/25. Reviewed labs with pt. Triglycerides 87. TC 208. LDL 144. HDL 47. BP today 108/64, 82p. PFSH Medical History (Updated 04/24/25 @ 17:30 by Angelo Warren) Breast cancer screening by mammogram Screening for cervical cancer Congenital intra-abdominal adhesions Morbid obesity Essential hypertension Morbid obesity with BMI of 45.0-49.9, adult Adult general medical exam Screening for colon cancer Nasal congestion Ear discomfort Acute bacterial sinusitis Smoker History of COVID-19 Elevated cholesterol HTN (hypertension) Insomnia Surgical History (Updated 03/31/25 @ 15:28 by KVNG Villalobos) S/P laparoscopic sleeve gastrectomy History of esophagogastroduodenoscopy (EGD) Hx of colonoscopy History of anal fistulotomy History of removal of cyst H/O wisdom tooth extraction History of section Family History Father Diabetes mellitus Mother HTN (hypertension) Stroke Brother Substance abuse Sister Substance abuse Son No problems noted. Daughter No problems noted. Social History (Reviewed 03/07/25 @ 15:26 by OPAL Molina Household Members: None Housing: House Are you a primary point of care technician to a significant other at home: No Do you presently have visiting nurse or other home services: No Patient Tobacco Use Status: Former Tobacco user Cigarette Packs Per Day: 0.5 Years Smoked: 20 Packs Per Year: 10 e-Cigarette/Vaping Use: Currently Using (Daily use.) Second Hand Smoke Exposure: No service: No Current occupational status: employed Current occupational exposures/hazards: No Cognitive needs: No Hearing needs: No Vision needs: No Questionnaire PHQ-9 Over the last 2 weeks, how often have you been bothered by any of the following problems? 1. Little interest or pleasure in doing things: not at all 2. Feeling down, depressed, or hopeless: not at all 3. Trouble falling or staying asleep, or sleeping too much: not at all 4. Feeling tired or having little energy: not at all 5. Poor appetite or overeating: not at all 6. Feeling bad about yourself - or that you are a failure or have let yourself or your family down: not at all 7. Trouble concentrating on things, such as reading the newspaper or watching television: not at all 8. Moving or speaking so slowly that other people could have noticed. Or the opposite - being so fidgety or restless that you have been moving around a lot more than usual: not at all 9. Thoughts that you would be better off or of hurting yourself in some way: not at all Total score: 0 Depression Screening Interpretation: Negative Depression Screening Done: Yes 97320 - PHQ-9 Billing: Yes Source: Developed by Drs. Сергей Garcia, Anais Nicole, Hany Cross and colleagues, with an educational amira from [employer]. Thrive Questionnaire Date Thrive assessed: 04/24/25 I am a: Patient What is your living situation today?: I have a steady place to live Within the past 12 months, did the food you bought not last and you didn't have the money to get more?: Never true Within the past 12 months, did you worry whether your food would run out before you got money to buy more?: Never true Do you have trouble paying for medicines?: No Do you have trouble getting transportation to medical appointments?: No Do you have trouble paying your heating and electricity bill?: No Do you have trouble taking care of your child, family member or friend?: No Do you have trouble with day-to-day activities such as bathing, preparing meals, shopping, managing finances, etc.?: No Are you currently unemployed and looking for a job?: No Are you interested in more education?: No Please select the resources that you would like help with: None Currently or been in a relationship where the following occur: I choose not to answer THRIVE Score: 0 AUDIT C Alcohol Use Questionnaire (AUDIT-C) 1. How often do you have a drink containing alcohol?: Never Total Score: 0 YING-7 AMB Questionnaire YING-7 Date YING - 7 assessed: 04/24/25 Feeling nervous, anxious, or on edge: 0 = Not at all Not being able to stop or control worryin = Not at all Worrying too much about different things: 0 = Not at all Trouble relaxin = Not at all Being so restless that it is hard to sit still: 0 = Not at all Becoming easily annoyed or irritable: 0 = Not at all Feeling afraid as if something awful might happen: 0 = Not at all Total YING-7 score (0-4 normal; 5-9 mild; 10-14 moderate; 15-21 severe): 0 Source: Developed by Drs. Сергей Garcia, Anais Nicole, Hany Cross and colleagues, with an educational amira from [employer]. YING-7 Assessment Billing YING-7 Assessment Tool: YING-7 Assessment 92422 Review of Systems Const Denies chills, Denies fatigue, Denies fever(s), Denies headache(s) and Denies weakness ENT Denies dizziness and Denies headache(s) Card Denies dyspnea Resp Denies cough, Denies dyspnea, Denies wheezing and Denies other (shortness of breath) Musc Denies numbness and Denies tingling Neuro Denies dizziness, Denies headache(s), Denies numbness, Denies tingling and Denies weakness Psych Denies anxiety and Denies depression Endo Denies fatigue Aller/Immun Denies wheezing Physical exam (Primary Care) Vital Signs: Last Vital Signs Temp 98.2 F 04/24/25 17:01 Pulse 82 04/24/25 17:01 Resp 16 04/24/25 17:01 BP 108/64 04/24/25 17:01 Pulse Ox 98 04/24/25 17:01 Oxygen Delivery Method Room Air 04/24/25 17:01 BMI result Body Mass Index 30.7 Tobacco/Smoking Status: Tobacco use Status Tobacco use date assessed 04/24/25 04/24/25 17:07 Patient Tobacco Use Status Former Tobacco user 04/24/25 16:58 e-Cigarette/Vaping Use Currently Using (Daily use.) 04/24/25 16:58 PHQ-9: PHQ-9 Score PHQ-9: Total score 0 04/24/25 17:17 Depression Screening Interpretation: Negative Thrive Assessment: Date of Thrive Assessment Date Thrive assessed 04/24/25 04/24/25 17:07 Currently or been in a relationship where the following occur: I choose not to answer Const General: well developed; No acute distress Nutritional Appearance: well nourished Orientation/consciousness: patient oriented x3 HENMT Head: Yes normocephalic and Yes atraumatic Eyes General: appearance normal, both eyes and all related structures Pupils: Equal, round and reactive pupils present EOM: EOMs intact bilaterally Resp Effort & Inspection: normal respiratory effort Neuro General: patient oriented x3 and gait normal Cranial nerves: Yes Equal, round and reactive pupils present Psych Affect: normal affect Coding Level of Care Code Est Pt Level 4 (37725) Diagnoses Hyperlipidemia E78.5 S/P laparoscopic sleeve gastrectomy Z98.84 HTN (hypertension) I10 Breast cancer screening by mammogram Z12.31 Screening for cervical cancer Z12.4 Additional Codes YING-7 Assessment Billing - YING-7 Assessment Tool: YING-7 Assessment 95789 ([id number]) PHQ-9 - 10350 - PHQ-9 Billing: Yes ([id number]) Assessment & Plan Assessment & Plan (1) Hyperlipidemia: Code(s): E78.5 - Hyperlipidemia, unspecified Category: Medical Plan: Lipids?are?too?high?after?patient?has?discontinued?atorvastatin She?will?resume?this Will?recheck?in?a?few?months (2) S/P laparoscopic sleeve gastrectomy: Code(s): Z98.84 - Bariatric surgery status Category: Surgical Plan: Patient?has?lost?over?100?lb Congratulated?patient Follow-up?with?bariatric?team Continue?diet?and?weight?loss (3) HTN (hypertension): Code(s): I10 - Essential (primary) hypertension Category: Medical Plan: Blood?pressure?is?controlled.??Goal?is?less?than?140/90 Good?blood?pressure?control?without?medication Continue?healthy?diet?and?exercise?and?weight loss (4) Breast cancer screening by mammogram: Code(s): Z12.31 - Encounter for screening mammogram for malignant neoplasm of breast Category: Medical Plan: Mammogram?managed?by?patient's?gunstock spray unit feeder (5) Screening for cervical cancer: Code(s): Z12.4 - Encounter for screening for malignant neoplasm of cervix Category: Medical Plan: Pap?smears?managed?by?patient's?gunstock spray unit feeder Has?had?abnormal?Pap?smear?and?has close?follow-up Orders: Orders Comprehensive [place]. Panel Fast Today Z00.00 - Encounter for general adult medical examination without abnormal findings Lipid Panel Today Z00.00 - Encounter for general adult medical examination without abnormal findings Medications: New atorvastatin 20 mg PO DAILY 90 days 90 tabs 3RF Changed From methylphenidate HCl MassPat Verified 20 mg PO DAILY 30 days 30 tabs 0RF To methylphenidate HCl MassPat Verified; Partial Fill upon patient request. 10 mg PO DAILY 30 days 30 tabs 0RF
[2025-04-24 17:01] VITALS: BP 108/64; PULSE 82; RESP 16; TEMP 36.8; O2SAT 98; BMI 30.7
== END ==
LOC: HO.HMCFM 16:31
PROVIDERS: PCP Family Medicine; Visit Provider Family Medicine
DX: E78.5 Hyperlipidemia, unspecified (principal); Z98.84 Bariatric surgery status; I10 Essential (primary) hypertension; Z12.31 Encounter for screening mammogram for malignant neoplasm of breast; Z12.4 Encounter for screening for malignant neoplasm of cervix

== ENCOUNTER → 2025-04-24 16:30 | Outpatient (BNVA) | payer OTHER, SELFPAY | PROVIDERS: PCP Family Medicine; Visit Provider Family Medicine | DX: I10 Essential (primary) hypertension (principal); E78.5 Hyperlipidemia, unspecified; Z98.84 Bariatric surgery status | CPT/HCPCS: 96127 ==

== ENCOUNTER 2025-05-05 15:16 | Outpatient (REF) | payer OTHER, SELFPAY | END 2025-05-05 15:17 | disposition home or self-care (01) | LOC: HO.MAMMO 15:16 | PROVIDERS: PCP Family Medicine; Visit Provider Family Medicine | DX: Z12.31 Encounter for screening mammogram for malignant neoplasm of breast (principal) | CPT/HCPCS: 77063; 77067 ==

== ENCOUNTER → 2025-05-05 15:30 | Outpatient (BNV) | payer OTHER, SELFPAY | PROVIDERS: PCP Family Medicine; Visit Provider Internal Medicine | DX: Z12.31 Encounter for screening mammogram for malignant neoplasm of breast (principal) | CPT/HCPCS: 77063; 77067 ==

== ENCOUNTER 2025-05-31 13:00 | Outpatient (AMB) | payer OTHER, SELFPAY ==
[2025-05-31 12:56] VITALS: BMI 29.0
--- NOTE | 2025-05-31 12:56 | MHC.OFFVISWM ---
VS Expanded 05/31/25 12:56 Height 5 ft 3 in Weight 164 lb BMI 29.0 Body Fat % 35.6 Fat Free Mass 105.6 Visceral Fat Rating 11 Body Water % 44.2 Muscle Mass/Score 99.2 Basal Metabolic Rate/Score 1,413 Intake Visit Reasons: TV PO LSG 09/07/24 All Source Intelligence Analyst Required: No Allergies sulfamethoxazole (From BACTRIM) Allergy (Unknown, Verified 04/24/25 16:59) TOLD HER NOT TO TAKE BACTRIM trimethoprim (From BACTRIM) Allergy (Unknown, Verified 04/24/25 16:59) TOLD HER NOT TO TAKE BACTRIM Medication List - Last Reconciled 05/31/25 by KVNG Villalobos atorvastatin 20 mg PO DAILY 90 days bisacodyl (Dulcolax (bisacodyl)) 10 mg (2 x 5 mg) PO BEDTIME 2 days cholecalciferol (vitamin D3) 50 mcg PO DAILY magnesium citrate 150 mL PO ONCE melatonin 3 mg PO BEDTIME PRN Held on 09/08/24. Instructions: Resume on 09/15/24. methylphenidate HCl 10 mg PO DAILY 30 days vitamin A palmitate 10,000 units PO DAILY HPI Comments Details: This?a?45?yo female who is s/p LSG without hiatal hernia repair on?09/07/2024. Presents for 9 month post op visit. Weight today is 164 pounds, with a BMI of 29.1. There has been a 115.8 pound weight loss,(initial weight 279.8 pounds) since starting the program on 06/22/2024 reflecting a 41.3 % total body weight loss and a weight loss of 92 pounds since surgery (operative weight 256 pounds) reflecting a 35.9 % TBWL since surgery. No complaints of nausea, emesis, abdominal pain or reflux. Reports infrequent but normal bowel movements every 2 days and uses stool softeners regularly. Taking centum womens MVI. She states she is doing well. She feels great. Dr Cheng had changed her meal plan. Taking B complex tab daily. Present meal plan includes: Wang powder shakes (25 gm protein per scoop) 1/2 scoop mixed with almond milk, 8-10 am 1/2 scoop, 11-1 pm Orgain protein bar, 2-5 meal 3 forks protein and 3 forks cooked veg, 6-8 pm 1 scoop shake 8-10 pm Drinking 64 oz water Pt is actually doin scoop in 16 oz between 8-12 pm 1 slice of cheddar cheese or 1 spoon of cottage cheese or 10 gm yogurt small meal 3 forks protein and 3 forks veg 1 scoop shake after dinner ? Exercise routine includes: bought recumbent bike. 400 calories 5 days per week PFS Medical History Breast cancer screening by mammogram Screening for cervical cancer Congenital intra-abdominal adhesions Morbid obesity Essential hypertension Morbid obesity with BMI of 45.0-49.9, adult Adult general medical exam Screening for colon cancer Nasal congestion Ear discomfort Acute bacterial sinusitis Smoker History of COVID-19 Elevated cholesterol HTN (hypertension) Insomnia Surgical History S/P laparoscopic sleeve gastrectomy History of esophagogastroduodenoscopy (EGD) Hx of colonoscopy History of anal fistulotomy History of removal of cyst H/O wisdom tooth extraction History of section Family History Father Diabetes mellitus Mother HTN (hypertension) Stroke Brother Substance abuse Sister Substance abuse Son No problems noted. Daughter No problems noted. Social History Household Members: None Housing: House Are you a primary health care specialist to a significant other at home: No Do you presently have visiting nurse or other home services: No Patient Tobacco Use Status: Former Tobacco user Cigarette Packs Per Day: 0.5 Years Smoked: 20 e-Cigarette/Vaping Use: Currently Using (Daily use.) Second Hand Smoke Exposure: No service: No Current occupational status: employed Current occupational exposures/hazards: No Cognitive needs: No Hearing needs: No Vision needs: No Telehealth Telehealth Telehealth Platform: Telephone Location of provider rendering services: practice address Location of patient: address on file Patient Identification confirmed using: Name, : Yes Telehealth method: voice only Patient verbally consented to treatment: Yes Patient verbally consented to billing insurance company: Yes Patient informed of any privacy concerns related to visit: Yes Minutes spent on Phone/Video with Pt.: 15 Assessment & Plan Assessment & Plan (1) S/P laparoscopic sleeve gastrectomy: Code(s): Z98.84 - Bariatric surgery status Category: Surgical Plan: Patient has meal plan was changed by Dr. Marcos. She is following it although instead of a bar is having a 10 g Tamazight yogurt. She continues to exercise burning 2000 calories or more per week. She is very happy with her weight loss overall. We will have her return to the office for 1 year follow-up mid August, check labs at that time. She was low in vitamin-A and B1. She is now taking AB complex vitamin. Encouraged to text with any questions or concerns. Continue to follow the meal plan as directed by Dr. Marcos
== END 2025-05-31 13:33 | disposition home or self-care (01) ==
LOC: HO.HBS 13:07
PROVIDERS: PCP Family Medicine; Visit Provider Physician Assistant Surgical
DX: E66.3 Overweight (principal); Z68.29 Body mass index [BMI] 29.0-29.9, adult; Z90.3 Acquired absence of stomach [part of]; Z98.84 Bariatric surgery status
CPT/HCPCS: 99213

== ENCOUNTER 2025-10-27 10:37 | Outpatient (AMB) | payer OTHER, SELFPAY ==
--- NOTE | 2025-10-27 10:41 | A.OFFPC_ITS ---
Vital Signs 10/27/25 10:46 Height 5 ft 3 in Weight 154 lb BMI 27.3 BP 114/62 Blood Pressure Location Rt brachial Position Sitting Respiration 16 Pulse 51 Pulse Source Pulse Oximeter Temp 97.9 F Temp Source Temporal Artery Scan Pulse Oximetry (%) 97 Oxygen Delivery Method Room Air Intake Visit Reasons: f/u HLD, hyperlipidemia and ADD Intake Note: Rochelle presents in the office today for her cholesterol and medication check. Would like the flu shot. Track Worker Required: No Is last menstrual period known: Yes Last menstrual period: 10/21/25 Post menopausal: No Patient : No Allergies sulfamethoxazole (From BACTRIM) Allergy (Unknown, Verified 10/27/25 10:43) TOLD HER NOT TO TAKE BACTRIM trimethoprim (From BACTRIM) Allergy (Unknown, Verified 10/27/25 10:43) TOLD HER NOT TO TAKE BACTRIM Medication List - Last Reconciled 10/27/25 by Jon Messer MD atorvastatin 20 mg PO DAILY 90 days B [id number] 500 mg-400 mcg- 23.9 mg-3 mg (Stress B-Complex) tabs PO cholecalciferol (vitamin D3) 50 mcg PO DAILY clotrimazole 1% 1 appl topical BID methylphenidate HCl 10 mg PO DAILY 30 days vitamin A palmitate 10,000 units PO DAILY [vitamin b12 PO] Tobacco use date assessed: 10/27/25 Dental Screening Dental Screen Date: 10/27/25 Did you have a dental visit in the last 12 months?: No Did you have a dental problem in the last 6 months where you did not have access to dental care?: No Was dental information given to patient?: Patient declined HPI f/u HLD, hyperlipidemia and ADD HPI Details 45 y/o female presents to f/u HLD, ADD. Last lipid panel drawn 08/30/25. Triglycerides 35. TC 140. LDL 81. HDL 52 She is on artovastatin 20mg daily. Pt requests a flu shot today. She is on methylphenidate for her ADD. [facility] Medical History Breast cancer screening by mammogram Screening for cervical cancer Congenital intra-abdominal adhesions Morbid obesity Essential hypertension Morbid obesity with BMI of 45.0-49.9, adult Adult general medical exam Screening for colon cancer Nasal congestion Ear discomfort Acute bacterial sinusitis Smoker History of COVID-19 Elevated cholesterol HTN (hypertension) Insomnia Surgical History S/P laparoscopic sleeve gastrectomy History of esophagogastroduodenoscopy (EGD) Hx of colonoscopy History of anal fistulotomy History of removal of cyst H/O wisdom tooth extraction History of section Family History Father Diabetes mellitus Mother HTN (hypertension) Stroke Brother Substance abuse Sister Substance abuse Son No problems noted. Daughter No problems noted. Social History (Updated 10/27/25 @ 10:45 by Deya Landin CMA) Household Members: None Housing: House Are you a primary director career services to a significant other at home: No Do you presently have visiting nurse or other home services: No Alcohol intake: never Patient Tobacco Use Status: Current everyday Tobacco user Cigarette Packs Per Day: 0.5 Years Smoked: 20 e-Cigarette/Vaping Use: Currently Using (Daily use.) Second Hand Smoke Exposure: No service: No Current occupational status: employed Current occupational exposures/hazards: No Cognitive needs: No Hearing needs: No Vision needs: No Female Reproductive History Menstrual Date of last menstrual period: 10/21/25 Questionnaire Thrive Questionnaire Date Thrive assessed: 04/24/25 I am a: Patient What is your living situation today?: I have a steady place to live Within the past 12 months, did the food you bought not last and you didn't have the money to get more?: Never true Within the past 12 months, did you worry whether your food would run out before you got money to buy more?: Never true Do you have trouble paying for medicines?: No Do you have trouble getting transportation to medical appointments?: No Do you have trouble paying your heating and electricity bill?: No Do you have trouble taking care of your child, family member or friend?: No Do you have trouble with day-to-day activities such as bathing, preparing meals, shopping, managing finances, etc.?: No Are you currently unemployed and looking for a job?: No Are you interested in more education?: No Please select the resources that you would like help with: None Currently or been in a relationship where the following occur: I choose not to answer THRIVE Score: 0 YING-7 AMB Questionnaire YING-7 Date YING - 7 assessed: 04/24/25 Source: Developed by Drs. Сергей Garcia, Anais Nicole, Hany Cross and colleagues, with an educational amira from [employer]. Review of Systems Const Denies chills, Denies fatigue, Denies fever(s), Denies headache(s) and Denies weakness ENT Denies dizziness and Denies headache(s) Card Denies dyspnea Resp Denies cough, Denies dyspnea, Denies wheezing and Denies other (shortness of breath) Musc Denies numbness and Denies tingling Neuro Denies dizziness, Denies headache(s), Denies numbness, Denies tingling and Denies weakness Psych Denies anxiety and Denies depression Endo Denies fatigue Aller/Immun Denies wheezing Physical exam (Primary Care) Vital Signs: Last Vital Signs Temp 97.9 F 10/27/25 10:46 Pulse 51 10/27/25 10:46 Resp 16 10/27/25 10:46 BP 114/62 10/27/25 10:46 Pulse Ox 97 10/27/25 10:46 Oxygen Delivery Method Room Air 10/27/25 10:46 BMI result Body Mass Index 27.3 Tobacco/Smoking Status: Tobacco use Status Tobacco use date assessed 10/27/25 10/27/25 10:48 Patient Tobacco Use Status Current everyday Tobacco 10/27/25 10:48 e-Cigarette/Vaping Use Currently Using (Daily use.) 10/27/25 10:48 Thrive Assessment: Date of Thrive Assessment Date Thrive assessed 04/24/25 10/27/25 10:48 Currently or been in a relationship where the following occur: I choose not to answer Const General: well developed; No acute distress Nutritional Appearance: well nourished Orientation/consciousness: patient oriented x3 HENMT Head: Yes normocephalic and Yes atraumatic Eyes General: appearance normal, both eyes and all related structures Pupils: Equal, round and reactive pupils present EOM: EOMs intact bilaterally Resp Effort & Inspection: normal respiratory effort Auscultation: clear to auscultation bilaterally Cardio Rate: regular rate Rhythm: regular rhythm Heart sounds: S1 normal heart sound present, S2 normal heart sound present, no gallops, no murmurs and no rubs Neuro General: patient oriented x3 and gait normal Cranial nerves: Yes Equal, round and reactive pupils present Psych Affect: normal affect Coding Level of Care Code Est Pt Level 4 (33060) Diagnoses HTN (hypertension) I10 Hyperlipidemia E78.5 Overweight E66.3 ADHD F90.9 Immunization counseling Z71.85 Assessment & Plan Assessment & Plan (1) HTN (hypertension): Code(s): I10 - Essential (primary) hypertension Category: Medical Plan: BP well controlled w/o medication since bariatric surgery and weight loss. (2) Hyperlipidemia: Code(s): E78.5 - Hyperlipidemia, unspecified Category: Medical Plan: Lipids now well controlled with atorvastatin LDL goal is less than 100 Continue current medication (3) Overweight: Code(s): E66.3 - Overweight Category: Medical Plan: S/p bariatric surgery Doing well Continue follow-up with weight management (4) ADHD: Code(s): F90.9 - Attention-deficit hyperactivity disorder, unspecified type Category: Medical Plan: Had decreased methylphenidate Medication is efficacious though she sometimes notes her mind wanders. At the same time, she has been concerned that higher doses were causing difficulty with sleep. No problems with appetite or anxiety Continue current medication and dose (5) Immunization counseling: Code(s): Z71.85 - Encounter for immunization safety counseling Category: Medical Plan: Patient has new preemie grandson who is now home from the hospital She is due for flu shot and Tdap Provided today Orders: Orders Influenza [id number] Immunization Today Z23 - Encounter for immunization TDaP Immunization Today Z23 - Encounter for immunization Medications: New Boostrix Tdap (diphth,pertus(acell),tetanus) 0.5 mL IM ONCE 0.5 mL 0RF NS Z23 - Encounter for immunization Fluarix [id number] (PF) (flu vac ts 2024-(6mos up)-PF) 0.5 mL IM ONCE 0.5 mL 0RF NS Z23 - Encounter for immunization
[2025-10-27 10:46] VITALS: BP 114/62; PULSE 51; RESP 16; TEMP 36.6; O2SAT 97; BMI 27.3
== END 2025-10-27 11:06 | disposition home or self-care (01) ==
LOC: HO.HMCFM 10:38
PROVIDERS: PCP Family Medicine; Visit Provider Family Medicine
DX: I10 Essential (primary) hypertension (principal); E78.5 Hyperlipidemia, unspecified; E66.3 Overweight; F90.9 Attention-deficit hyperactivity disorder, unspecified type; Z71.85 Encounter for immunization safety counseling; Z23 Encounter for immunization

== ENCOUNTER 2025-10-27 10:37 | Outpatient (REF) | payer OTHER, SELFPAY ==
[2025-10-27 17:21] LABS: Alanine Aminotransferase 29 U/L (0-31); Albumin Level 4.3 g/dL (3.5-5.0); Alkaline Phosphatase 44 U/L (39-117); Anion Gap 8 (12-20); Aspartate Amino Transferase 21 U/L (5-31); Blood Urea Nitrogen 24 mg/dL (9-16); Calcium 9.2 mg/dL (8.4-10.2); Carbon Dioxide 27 mmol/L (22-29); Chloride 110 mmol/L (96-108); Cholesterol 145 mg/dL (<200); Estimated Glomerular Filt Rate > 60; HDL Cholesterol 61 mg/dL (>40); Potassium 4.1 mmol/L (3.3-5.1); Sodium 141 mmol/L (135-145); Total Protein 6.7 g/dL (6.5-8.0); Triglycerides 33 mg/dL (<150)
== END 2025-10-27 10:38 | disposition home or self-care (01) ==
LOC: HO.LAB 10:37
PROVIDERS: Absent Provider Physician Assistant Surgical; PCP Family Medicine; Visit Provider Family Medicine
DX: Z00.00 Encounter for general adult medical examination without abnormal findings (principal); Z23 Encounter for immunization; E78.5 Hyperlipidemia, unspecified
CPT/HCPCS: 36415; 80053; 80061; 90471; 90656; 90715